=== PATIENT | female | born 1970 | race Caucasian/White ===

== ENCOUNTER 2016-05-26 19:34 | Emergency (ER) | payer MEDICARE, MEDICAID ==
[2016-05-26 20:22] VITALS: BP 134/84
--- NOTE | 2016-05-26 20:39 | UC ---
Respiratory Complaint HPI - HPI Summary HPI Summary: 5d of cough, congestion, malaise, low energy, itchy skin rash. No fever or vomiting. Has history of asthma, using Ventolin inhaler - History of Current Complaint Chief Complaint: UCGeneralIllness Stated Complaint: COUGH,MONROE,RASH Time Seen by Provider: 05/26/16 20:24 Hx Obtained From: Patient Hx Last Menstrual Period: 05/19/16 Onset/Duration: Gradual Onset, Lasting Days - 5 Timing: Constant Severity Initially: Mild Severity Currently: Mild Character: Cough: Productive Aggravating Factors: Exertion Alleviating Factors: Bronchodilator Associated Signs And Symptoms: Positive: Dyspnea, Chills, Wheezing, URI - Risk Factors Pulmonary Embolism Risk Factors: Negative Cardiac Risk Factors: Negative Pseudomonas Risk Factors: Negative Tuberculosis Risk Factors: Negative - Allergies/Home Medications Allergies/Adverse Reactions: Allergies Allergy/AdvReac Type Severity Reaction Status Date / Time Fluticasone Allergy Difficulty Verified 05/26/16 20:22 [From Advair Diskus] Breathing Latex Allergy Difficulty Verified 05/26/16 20:22 Breathing Prednisone Allergy Difficulty Verified 05/26/16 20:22 Breathing Pseudoephedrine Allergy Unknown Verified 05/26/16 20:22 [From Sudafed] Reaction Details Salmeterol Allergy Difficulty Verified 05/26/16 20:22 [From Advair Diskus] Breathing Sulfa Drugs Allergy UNKNOWN Verified 05/26/16 20:22 REACTION Aspartame [From Alavert] AdvReac Dizziness Verified 05/26/16 20:22 Aspirin AdvReac Tachycardia Verified 05/26/16 20:22 Chocolate AdvReac RASH, N/V Verified 05/26/16 20:22 Famotidine [From Pepcid] AdvReac Vomiting Verified 05/26/16 20:22 Levofloxacin [From Levaquin] AdvReac Headache Verified 05/26/16 20:22 Loratadine [From Alavert] AdvReac Dizziness Verified 05/26/16 20:22 Metoclopramide [From Reglan] AdvReac Dizziness Verified 05/26/16 20:22 Polyethylene Glycol AdvReac GI Upset Verified 05/26/16 20:22 [From MiraLax] antihistamines other than AdvReac Tachycardia Uncoded 05/26/16 20:22 Benadryl DAIRY AdvReac FLARES UP Uncoded 05/26/16 20:22 ASTHMA SPICES AdvReac RASH, N/V Uncoded 05/26/16 20:22 TOMATOES AdvReac N/V, RASH Uncoded 05/26/16 20:22 PMH/Surg Hx/FS Hx/Imm Hx Endocrine History Of: Denies: Diabetes, Thyroid Disease Cardiovascular History Of: Reports: Cardiac Disorders - MVP Denies: Hypertension, Pacemaker/ICD, Congestive Heart Failure Respiratory History Of: Reports: COPD, Asthma, Bronchitis GI/ History Of: Reports: Gastroesophageal Reflux Denies: Ulcer, Renal Disease Neurological History Of: Denies: CVA, Seizures - Surgical History Surgical History: Yes Surgery Procedure, Year, and Place: Left kidney benign tumor removed 07/24/13- [place], [place], Benign tumor removed left kidney 1999; abdominal hernia at [place], [place]; 2X of her sinuses and a polyp removed to the top of her nose 2010. - Family History Known Family History: Positive: None, Respiratory Disease, Other - Denies any FMH of bleeding disorders Negative: Cardiac Disease, Hypertension, Diabetes - Social History Occupation: Employed Part-time Lives: With Family Alcohol Use: None Substance Use Type: None Smoking Status (MU): Never Smoked Tobacco When Did the Patient Quit Smoking/Using Tobacco: 1999 - Immunization History Most Recent Influenza Vaccination: Not the Season Most Recent Tetanus Shot: 02/2012 Review of Systems Constitutional: Chills, Fatigue Skin: Rash - widespread, itchy Eyes: Negative ENT: Negative Respiratory: Shortness Of Breath, Cough Cardiovascular: Negative Gastrointestinal: Negative Genitourinary: Negative Motor: Negative Neurovascular: Negative Musculoskeletal: Negative Neurological: Negative Psychological: Negative All Other Systems Reviewed And Are Negative: Yes Physical Exam Triage Information Reviewed: Yes Appearance: Well-Appearing, No Pain Distress, Well-Nourished, Obese Vital Signs: Initial Vital Signs Temp 98.2 F 05/26/16 20:17 Pulse 86 05/26/16 20:17 Resp 16 05/26/16 20:17 BP 134/84 05/26/16 20:17 Pulse Ox 98 05/26/16 20:17 Vital Signs Reviewed: Yes Eye Exam: Normal Eyes: Positive: Conjunctiva Clear ENT: Positive: Normal ENT inspection, Pharynx normal, TMs normal. Negative: Nasal congestion Neck exam: Normal Neck: Positive: Supple Respiratory Exam: Normal Respiratory: Positive: Lungs clear, Normal breath sounds, No respiratory distress, No accessory muscle use Cardiovascular Exam: Normal Musculoskeletal Exam: Normal Neurological Exam: Normal Psychological Exam: Normal Skin: Positive: rashes - widespread excoriations/scabs. No clear rash otherwise UC Diagnostic Evaluation - Laboratory O2 Sat by Pulse Oximetry: 98 Respiratory Course/Dx - Differential Dx/Diagnosis Differential Diagnosis/HQI/PQRI: Bronchitis, Lower Resp Infection Provider Diagnoses: URI; allergic dermatitis Discharge - Discharge Plan Condition: Stable Disposition: HOME Prescriptions: Prednisone [Deltasone] 20 mg PO DAILY #8 tab Patient Education Materials: Upper Respiratory Infection (ED) Forms: *Work Release Referrals: Juan Baxter MD [Primary Care Provider] -
== END 2016-05-26 20:43 | disposition home or self-care (01) ==
LOC: UCCORT 19:34
DX: J06.9 Acute upper respiratory infection, unspecified (principal); L23.9 Allergic contact dermatitis, unspecified cause; Z88.6 Allergy status to analgesic agent; Z88.8 Allergy status to other drugs, medicaments and biological substances
CPT/HCPCS: 99212; G0463

== ENCOUNTER 2016-05-28 19:10 | Emergency (ER) | payer MEDICARE, MEDICAID ==
[2016-05-28 19:50] VITALS: BP 124/107
--- NOTE | 2016-05-28 21:58 | UC ---
Ruthy Liu SooYoung, scribed for DiptiShira Kemp, DO on 05/28/16 at 1955 . Skin Complaint HPI - HPI Summary HPI Summary: A 46 y/o F presents to [facility] with c/o ongoing diffuse skin rash onset past month. The rash/bites are pruritic, erythamatous, and present on all four extremities. Pt states the sx feel similar to past episodes before, which in the past had been scabies. At work, pt has been in contact with people with existing skin issues from bed bugs, mites. Pt was seen two days ago at [facility]. Pt denies exposure to any new plants, pets, foods, medicines, soaps, lotions, detergents, fragrances. Secondary complaint: mild dysuria, frequency, nausea. Denies v/d. Known UTI mid-April 2016. Pt is scheduled for a colonoscopy at the end of the month. - History of Current Complaint Chief Complaint: UCSkin Stated Complaint: RASH Hx Obtained From: Patient, Medical Records Hx Last Menstrual Period: 05/21/16 Onset/Duration: Lasting Weeks - about a month, Still Present Timing: Constant Onset Severity: Moderate Current Severity: Moderate Pain Intensity: 0 - denies pain Pain Scale Used: 0-10 Numeric Location: Diffuse Character: Pruritus, Redness Aggravating: Nothing Alleviating: Nothing Associated Signs & Symptoms: Positive: Rash. Negative: Vomiting, Diaphoresis, Difficulty Breathing, Fever, Cough, Wheezing, Chest Pain, Hoarseness, Throat Tightening, Abdominal Pain, Lightheadedness - Allergy/Home Medications Allergies/Adverse Reactions: Allergies Allergy/AdvReac Type Severity Reaction Status Date / Time Fluticasone Allergy Difficulty Verified 05/28/16 19:39 [From Advair Diskus] Breathing Latex Allergy Difficulty Verified 05/28/16 19:39 Breathing Prednisone Allergy Difficulty Verified 05/28/16 19:39 Breathing Pseudoephedrine Allergy Unknown Verified 05/28/16 19:39 [From Sudafed] Reaction Details Salmeterol Allergy Difficulty Verified 05/28/16 19:39 [From Advair Diskus] Breathing Sulfa Drugs Allergy UNKNOWN Verified 05/28/16 19:39 REACTION Aspartame [From Alavert] AdvReac Dizziness Verified 05/28/16 19:39 Aspirin AdvReac Tachycardia Verified 05/28/16 19:39 Chocolate AdvReac RASH, N/V Verified 05/28/16 19:39 Famotidine [From Pepcid] AdvReac Vomiting Verified 05/28/16 19:39 Levofloxacin [From Levaquin] AdvReac Headache Verified 05/28/16 19:39 Loratadine [From Alavert] AdvReac Dizziness Verified 05/28/16 19:39 Metoclopramide [From Reglan] AdvReac Dizziness Verified 05/28/16 19:39 Polyethylene Glycol AdvReac GI Upset Verified 05/28/16 19:39 [From MiraLax] antihistamines other than AdvReac Tachycardia Uncoded 05/28/16 19:39 Benadryl DAIRY AdvReac FLARES UP Uncoded 05/28/16 19:39 ASTHMA SPICES AdvReac RASH, N/V Uncoded 05/28/16 19:39 TOMATOES AdvReac N/V, RASH Uncoded 05/28/16 19:39 Review of Systems Constitutional: Negative Skin: Rash Eyes: Negative ENT: Negative Respiratory: Negative Cardiovascular: Negative Gastrointestinal: Other - pos: nausea, Genitourinary: Dysuria, Frequency Motor: Negative Neurovascular: Negative Musculoskeletal: Negative Neurological: Negative Psychological: Negative All Other Systems Reviewed And Are Negative: Yes PMH/Surg Hx/FS Hx/Imm Hx Previously Healthy: No Endocrine History Of: Denies: Diabetes, Thyroid Disease Cardiovascular History Of: Reports: Cardiac Disorders - MVP Denies: Hypertension, Pacemaker/ICD, Congestive Heart Failure Respiratory History Of: Reports: COPD, Asthma, Bronchitis GI/ History Of: Reports: Gastroesophageal Reflux Denies: Ulcer, Renal Disease Neurological History Of: Denies: CVA, Seizures - Surgical History Surgical History: Yes Surgery Procedure, Year, and Place: Left kidney benign tumor removed 07/24/13- [place], Benign tumor removed left kidney 1999; abdominal hernia at [place], [place]; 2X of her sinuses and a polyp removed to the top of her nose 2010. - Family History Known Family History: Positive: None, Respiratory Disease, Other - Denies any FMH of bleeding disorders Negative: Cardiac Disease, Hypertension, Diabetes - Social History Occupation: Employed Full-time Lives: With Family Alcohol Use: None Substance Use Type: None Smoking Status (MU): Never Smoked Tobacco When Did the Patient Quit Smoking/Using Tobacco: 1999 - Immunization History Most Recent Influenza Vaccination: Not the Season Most Recent Tetanus Shot: 02/2012 Physical Exam Triage Information Reviewed: Yes Appearance: Well-Appearing, No Pain Distress, Obese Vital Signs: Initial Vital Signs Temp 97 F 05/28/16 19:43 Pulse 82 05/28/16 19:43 Resp 18 05/28/16 19:43 BP 124/107 05/28/16 19:43 Pulse Ox 99 05/28/16 19:43 Vital Signs Reviewed: Yes Eyes: Positive: Conjunctiva Clear. Negative: Discharge ENT: Positive: Hearing grossly normal. Negative: Muffled/hoarse voice Neck exam: Normal Neck: Positive: Supple Respiratory: Positive: Chest non-tender, Lungs clear, Normal breath sounds, No respiratory distress Cardiovascular: Positive: RRR, No Murmur Abdomen Description: Positive: Nontender. Negative: CVA Tenderness (R), CVA Tenderness (L), Distended, Guarding Bowel Sounds: Positive: Present Musculoskeletal Exam: Normal Neurological: Positive: Alert, Muscle Tone Normal Psychological: Positive: Age Appropriate Behavior Skin Exam: Other - dry, warm, nml color Skin: Positive: rashes - NUMEROUS, PRURITIC, EXCORIATED LESIONS WITH RAVEN TRACTS ON ARMS, LEGS, HANDS AND TRUNK. Course/Dx - Differential Diagnoses - Skin Complaint Differential Diagnoses: Contact Dermatitis, Scabies, Tinea, Viral Exanthem, Other - dysuria, uti - Diagnoses Provider Diagnoses: scabie, uti Discharge - Discharge Plan Condition: Stable Disposition: HOME Prescriptions: Permethrin [Elimite] 5 % TOPICAL ONCE #1 bottle Patient Education Materials: Scabies (ED), Dysuria (ED) Referrals: Juan Baxter MD [Primary Care Provider] - 2 Weeks () Additional Instructions: RIGHT NOW, YOUR URINE DIPSTICK DOES NOT SHOW STRONG EVIDENCE FOR UTI. THEREFORE WE WILL HOLD OFF ON TREATMENT UNTIL CULTURE RESULTS COME BACK. THEY SHOULD BE AVAILABLE IN ABOUT 2 DAYS. IF SYMPTOMS WORSEN OR IF YOU DEVELOP FEVER , BACK PAIN VOMITING OR BLOOD IN YOUR URINE, YOU SHOULD RETURN FOR RE- EVALUATION. The documentation as recorded by the Ruthy stewart SooYoung accurately reflects the service I personally performed and the decisions made by , Shira Resendez DO.
== END 2016-05-28 20:33 | disposition home or self-care (01) ==
LOC: UCEAST 19:10
DX: B86 Scabies (principal); N39.0 Urinary tract infection, site not specified; Z87.440 Personal history of urinary (tract) infections; Z88.6 Allergy status to analgesic agent; Z88.2 Allergy status to sulfonamides; Z88.8 Allergy status to other drugs, medicaments and biological substances; Z87.891 Personal history of nicotine dependence
CPT/HCPCS: 81002; 87077; 87086; 87186; 99212; G0463

== ENCOUNTER 2016-06-08 18:49 | Emergency (ER) | payer MEDICARE, MEDICAID ==
[2016-06-08 19:30] VITALS: BP 110/71
--- NOTE | 2016-06-08 19:39 | UC ---
Throat Pain/Nasal Kyaw HPI - HPI Summary HPI Summary: complaint of right ear pain since yesterday stabbing pain in her ear sore throat since yesterday nasal congestion and cough, post nasal drip lymph nodes feel sore has had chills today took some tylenol this morning with some relief went to see occupational health who told her to be checked - History of Current Complaint Chief Complaint: UCGeneralIllness Stated Complaint: SORE THROAT AND EAR ACHE Time Seen by Provider: 06/08/16 19:32 Hx Obtained From: Patient Hx Last Menstrual Period: 05/19/16 - Allergies/Home Medications Allergies/Adverse Reactions: Allergies Allergy/AdvReac Type Severity Reaction Status Date / Time Fluticasone Allergy Difficulty Verified 06/08/16 19:30 [From Advair Diskus] Breathing Latex Allergy Difficulty Verified 06/08/16 19:30 Breathing Prednisone Allergy Difficulty Verified 06/08/16 19:30 Breathing Pseudoephedrine Allergy Unknown Verified 06/08/16 19:30 [From Sudafed] Reaction Details Salmeterol Allergy Difficulty Verified 06/08/16 19:30 [From Advair Diskus] Breathing Sulfa Drugs Allergy UNKNOWN Verified 06/08/16 19:30 REACTION Aspartame [From Alavert] AdvReac Dizziness Verified 06/08/16 19:30 Aspirin AdvReac Tachycardia Verified 06/08/16 19:30 Chocolate AdvReac RASH, N/V Verified 06/08/16 19:30 Famotidine [From Pepcid] AdvReac Vomiting Verified 06/08/16 19:30 Levofloxacin [From Levaquin] AdvReac Headache Verified 06/08/16 19:30 Loratadine [From Alavert] AdvReac Dizziness Verified 06/08/16 19:30 Metoclopramide [From Reglan] AdvReac Dizziness Verified 06/08/16 19:30 Polyethylene Glycol AdvReac GI Upset Verified 06/08/16 19:30 [From MiraLax] antihistamines other than AdvReac Tachycardia Uncoded 06/08/16 19:30 Benadryl DAIRY AdvReac FLARES UP Uncoded 06/08/16 19:30 ASTHMA SPICES AdvReac RASH, N/V Uncoded 06/08/16 19:30 TOMATOES AdvReac N/V, RASH Uncoded 06/08/16 19:30 Home Medications: Home Medications Ciclesonide (Nasal) [Zetonna] 2 inh NA BID 06/08/16 [History Confirmed 06/08/16] PMH/Surg Hx/FS Hx/Imm Hx Previously Healthy: Yes Endocrine History Of: Denies: Diabetes, Thyroid Disease Cardiovascular History Of: Reports: Cardiac Disorders - MVP Denies: Hypertension, Pacemaker/ICD, Congestive Heart Failure Respiratory History Of: Reports: COPD, Asthma, Bronchitis GI/ History Of: Reports: Gastroesophageal Reflux Denies: Ulcer, Renal Disease Neurological History Of: Denies: CVA, Seizures - Surgical History Surgical History: Yes Surgery Procedure, Year, and Place: Left kidney benign tumor removed 07/24/13- [place], [place], Benign tumor removed left kidney 1999; abdominal hernia at [place], [place]; 2X of her sinuses and a polyp removed to the top of her nose 2010. - Family History Known Family History: Positive: None, Respiratory Disease, Other - Denies any FMH of bleeding disorders Negative: Cardiac Disease, Hypertension, Diabetes - Social History Alcohol Use: None Substance Use Type: None Smoking Status (MU): Never Smoked Tobacco When Did the Patient Quit Smoking/Using Tobacco: 1999 - Immunization History Most Recent Influenza Vaccination: none Most Recent Tetanus Shot: 02/2012 Review of Systems Constitutional: Chills Skin: Negative Eyes: Negative ENT: Sore Throat, Ear Ache, Nasal Discharge Respiratory: Cough Cardiovascular: Negative Gastrointestinal: Negative Genitourinary: Negative Motor: Negative Neurovascular: Negative Musculoskeletal: Negative Neurological: Negative Psychological: Negative All Other Systems Reviewed And Are Negative: Yes Physical Exam Triage Information Reviewed: Yes Appearance: Well-Nourished, Obese Vital Signs: Initial Vital Signs Temp 98.5 F 06/08/16 19:23 Pulse 85 06/08/16 19:23 Resp 17 06/08/16 19:23 BP 110/71 06/08/16 19:23 Pulse Ox 98 06/08/16 19:23 Vital Signs Reviewed: Yes Eyes: Positive: Conjunctiva Clear ENT: Positive: Pharyngeal erythema, Nasal congestion, Other: - right TM- bulging and clear Left TM clear and flat. Negative: Tonsillar swelling Neck: Positive: Enlarged Nodes @ - right sided cervical lymphadenopathy Respiratory: Positive: Lungs clear, Normal breath sounds, No respiratory distress Cardiovascular: Positive: RRR, No Murmur, Pulses Normal Abdomen Description: Positive: Nontender, Soft Bowel Sounds: Positive: Present Musculoskeletal: Positive: No Edema Neurological: Positive: Alert Psychological Exam: Normal Skin Exam: Normal Throat Pain/Nasal Course/Dx - Differential Dx/Diagnosis Differential Diagnosis/HQI/PQRI: Otitis Media, Pharyngitis, Tonsillitis Provider Diagnoses: eustachion tube dysfunction- right. pharyngitis Discharge - Discharge Plan Condition: Stable Disposition: HOME Patient Education Materials: Pharyngitis (ED) Referrals: Juan Baxter MD [Primary Care Provider] - Additional Instructions: Increase fluids and rest Take acetaminophen for fever or pain Please review your discharge instructions. If your symptoms do not improve please call your primary care provider or return to urgent care.
[2016-06-08] MEDS ORDERED: Acetaminophen TAB* 325 MG PO ONE (20:06)
== END 2016-06-08 20:16 | disposition home or self-care (01) ==
LOC: UCCORT 18:49
DX: H69.91 Unspecified Eustachian tube disorder, right ear (principal); J02.9 Acute pharyngitis, unspecified; Z88.6 Allergy status to analgesic agent; Z88.2 Allergy status to sulfonamides; Z88.8 Allergy status to other drugs, medicaments and biological substances
CPT/HCPCS: 87651; 99212; A9270-GY; G0463

== ENCOUNTER 2016-07-09 18:35 | Emergency (ER) | payer MEDICARE, MEDICAID ==
[2016-07-09 19:42] VITALS: BP 128/63
--- NOTE | 2016-07-09 19:52 | UC ---
Respiratory Complaint HPI - HPI Summary HPI Summary: pt c/o of non productive cough nasal congetiosn and right ear ache X 3-4 days. - History of Current Complaint Chief Complaint: UCGeneralIllness Stated Complaint: CONGESTION/COUGH Time Seen by Provider: 07/09/16 19:41 Hx Obtained From: Patient Hx Last Menstrual Period: denies risk of ?: No Onset/Duration: Gradual Onset, Lasting Days Timing: Constant Severity Initially: Mild Severity Currently: Mild Character: Cough: Nonproductive Aggravating Factors: Deep Breaths, Recumbent Position Alleviating Factors: Nothing Associated Signs And Symptoms: Positive: Chills, URI, Nasal Congestion - Risk Factors Pseudomonas Risk Factors: Chronic Lung Disease - Allergies/Home Medications Allergies/Adverse Reactions: Allergies Allergy/AdvReac Type Severity Reaction Status Date / Time Fluticasone Allergy Difficulty Verified 07/09/16 19:42 [From Advair Diskus] Breathing Latex Allergy Difficulty Verified 07/09/16 19:42 Breathing Prednisone Allergy Difficulty Verified 07/09/16 19:42 Breathing Pseudoephedrine Allergy Unknown Verified 07/09/16 19:42 [From Sudafed] Reaction Details Salmeterol Allergy Difficulty Verified 07/09/16 19:42 [From Advair Diskus] Breathing Sulfa Drugs Allergy UNKNOWN Verified 07/09/16 19:42 REACTION Aspartame [From Alavert] AdvReac Dizziness Verified 07/09/16 19:42 Aspirin AdvReac Tachycardia Verified 07/09/16 19:42 Chocolate AdvReac RASH, N/V Verified 07/09/16 19:42 Famotidine [From Pepcid] AdvReac Vomiting Verified 07/09/16 19:42 Levofloxacin [From Levaquin] AdvReac Headache Verified 07/09/16 19:42 Loratadine [From Alavert] AdvReac Dizziness Verified 07/09/16 19:42 Metoclopramide [From Reglan] AdvReac Dizziness Verified 07/09/16 19:42 Polyethylene Glycol AdvReac GI Upset Verified 07/09/16 19:42 [From MiraLax] antihistamines other than AdvReac Tachycardia Uncoded 07/09/16 19:42 Benadryl DAIRY AdvReac FLARES UP Uncoded 07/09/16 19:42 ASTHMA SPICES AdvReac RASH, N/V Uncoded 07/09/16 19:42 TOMATOES AdvReac N/V, RASH Uncoded 07/09/16 19:42 PMH/Surg Hx/FS Hx/Imm Hx Previously Healthy: No - see pmh Endocrine History Of: Denies: Diabetes, Thyroid Disease Cardiovascular History Of: Reports: Cardiac Disorders - MVP Denies: Hypertension, Pacemaker/ICD, Congestive Heart Failure Respiratory History Of: Reports: COPD, Asthma, Bronchitis GI/ History Of: Reports: Gastroesophageal Reflux Denies: Ulcer, Renal Disease Neurological History Of: Denies: CVA, Seizures - Surgical History Surgical History: Yes Surgery Procedure, Year, and Place: Left kidney benign tumor removed 07/24/13- [place], [place], Benign tumor removed left kidney 1999; abdominal hernia at [place], [place]; 2X of her sinuses and a polyp removed to the top of her nose 2010. - Family History Known Family History: Positive: Respiratory Disease, Other - Denies any FMH of bleeding disorders Negative: Cardiac Disease, Hypertension, Diabetes - Social History Alcohol Use: None Substance Use Type: None Smoking Status (MU): Never Smoked Tobacco When Did the Patient Quit Smoking/Using Tobacco: 1999 - Immunization History Most Recent Influenza Vaccination: none Most Recent Tetanus Shot: 02/2012 Review of Systems Constitutional: Chills, Fatigue Skin: Negative Eyes: Negative ENT: Ear Ache - right ear Respiratory: Cough Cardiovascular: Negative Gastrointestinal: Negative Genitourinary: Negative Motor: Negative Neurovascular: Negative Musculoskeletal: Negative Neurological: Negative Psychological: Negative All Other Systems Reviewed And Are Negative: Yes Physical Exam Triage Information Reviewed: Yes Appearance: Well-Appearing, Other: - unkempt Vital Signs: Initial Vital Signs Temp 98.2 F 07/09/16 19:33 Pulse 94 07/09/16 19:33 Resp 18 07/09/16 19:33 BP 128/63 07/09/16 19:33 Pulse Ox 98 07/09/16 19:33 Vital Signs Reviewed: Yes Eye Exam: Normal ENT Exam: Normal Respiratory Exam: Normal Cardiovascular Exam: Normal Musculoskeletal Exam: Normal Neurological Exam: Normal Psychological Exam: Normal Skin Exam: Other - mulitple scratches on bilateral hands, UC Diagnostic Evaluation - Laboratory O2 Sat by Pulse Oximetry: 98 Respiratory Course/Dx - Differential Dx/Diagnosis Differential Diagnosis/HQI/PQRI: Bronchitis, Influenza Provider Diagnoses: post viral cough Discharge - Discharge Plan Condition: Stable Disposition: HOME Prescriptions: predniSONE TAB* [Deltasone TAB*] 20 mg PO DAILY #4 tab Patient Education Materials: Acute Cough (ED) Referrals: Juan Baxter MD [Primary Care Provider] -
== END 2016-07-09 19:53 | disposition home or self-care (01) ==
LOC: UCCORT 18:35
DX: R05 Cough (principal); Z88.6 Allergy status to analgesic agent; Z88.2 Allergy status to sulfonamides; Z88.8 Allergy status to other drugs, medicaments and biological substances; I34.1 Nonrheumatic mitral (valve) prolapse
CPT/HCPCS: 99212; G0463

== ENCOUNTER 2016-08-10 21:38 | Emergency (ER) | payer MEDICARE, MEDICAID ==
[2016-08-10 22:35] VITALS: BP 143/69
== END 2016-08-10 23:53 | disposition left against medical advice (07) ==
LOC: UCCORT 21:38
DX: R04.0 Epistaxis (principal); Z53.21 Procedure and treatment not carried out due to patient leaving prior to being seen by health care provider

== ENCOUNTER 2016-08-14 19:40 | Emergency (ER) | payer MEDICARE, MEDICAID | END 2016-08-14 21:17 | disposition left against medical advice (07) | LOC: UCCORT 19:40 | DX: J00 Acute nasopharyngitis [common cold] (principal) ==

== ENCOUNTER 2016-08-19 15:35 | Emergency (ER) | payer MEDICARE, MEDICAID ==
--- NOTE | 2016-08-19 17:08 | UC ---
Respiratory Complaint HPI - HPI Summary HPI Summary: 2.5 weeks of uri sx---seems to be not improving---seen quality assurance lead---who began here on 14 days of Prednisone... She was not feeling much better so she saw here allergist/immunologist physician how felt she may need to be admitted to the hospital. Came here to get checked out and figure out what is going on--she did have an episode of sweating and could chills earlier todays -has not had a CXR or checked for influenza - History of Current Complaint Chief Complaint: UCRespiratory Stated Complaint: fever,chills,sinuses Time Seen by Provider: 08/19/16 16:47 Hx Obtained From: Patient Hx Last Menstrual Period: 4 months ago ?: No Onset/Duration: Gradual Onset, Lasting Weeks - 2.5 weeks, Still Present Timing: Constant Severity Initially: Moderate Severity Currently: Moderate Pain Intensity: 4 Pain Scale Used: 0-10 Numeric Character: Cough: Productive Aggravating Factors: Allergens, Exertion Alleviating Factors: Bronchodilator Associated Signs And Symptoms: Positive: Dyspnea, URI, Nasal Congestion, Sinus Discomfort - Allergies/Home Medications Allergies/Adverse Reactions: Allergies Allergy/AdvReac Type Severity Reaction Status Date / Time Fluticasone Allergy Difficulty Verified 08/19/16 16:52 [From Advair Diskus] Breathing Latex Allergy Difficulty Verified 08/19/16 16:52 Breathing Prednisone Allergy Difficulty Verified 08/19/16 16:52 Breathing Pseudoephedrine Allergy Unknown Verified 08/19/16 16:52 [From Sudafed] Reaction Details Salmeterol Allergy Difficulty Verified 08/19/16 16:52 [From Advair Diskus] Breathing Sulfa Drugs Allergy UNKNOWN Verified 08/19/16 16:52 REACTION Aspartame [From Alavert] AdvReac Dizziness Verified 08/19/16 16:52 Aspirin AdvReac Tachycardia Verified 08/19/16 16:52 Chocolate AdvReac RASH, N/V Verified 08/19/16 16:52 Famotidine [From Pepcid] AdvReac Vomiting Verified 08/19/16 16:52 Levofloxacin [From Levaquin] AdvReac Headache Verified 08/19/16 16:52 Loratadine [From Alavert] AdvReac Dizziness Verified 08/19/16 16:52 Metoclopramide [From Reglan] AdvReac Dizziness Verified 08/19/16 16:52 Polyethylene Glycol AdvReac GI Upset Verified 08/19/16 16:52 [From MiraLax] antihistamines other than AdvReac Tachycardia Uncoded 08/19/16 16:52 Benadryl DAIRY AdvReac FLARES UP Uncoded 08/19/16 16:52 ASTHMA SPICES AdvReac RASH, N/V Uncoded 08/19/16 16:52 TOMATOES AdvReac N/V, RASH Uncoded 08/19/16 16:52 Home Medications: Home Medications ceFUROXime TAB(*) [Ceftin TAB 250 MG(*)] 500 mg PO BID 08/19/16 [History Confirmed 08/19/16] PMH/Surg Hx/FS Hx/Imm Hx Previously Healthy: No Endocrine History Of: Denies: Diabetes, Thyroid Disease Cardiovascular History Of: Reports: Cardiac Disorders - MVP Denies: Hypertension, Pacemaker/ICD, Congestive Heart Failure Respiratory History Of: Reports: COPD, Asthma, Bronchitis GI/ History Of: Reports: Gastroesophageal Reflux Denies: Ulcer, Renal Disease Neurological History Of: Denies: CVA, Seizures - Surgical History Surgical History: Yes Surgery Procedure, Year, and Place: Left kidney benign tumor removed 07/24/13- [place], [place], Benign tumor removed left kidney 1999; abdominal hernia at [place], [place]; 2X of her sinuses and a polyp removed to the top of her nose 2010. - Family History Known Family History: Positive: None, Respiratory Disease, Other - Denies any FMH of bleeding disorders Negative: Cardiac Disease, Hypertension, Diabetes - Social History Occupation: Disabled Lives: With Family Alcohol Use: None Substance Use Type: None Smoking Status (MU): Never Smoked Tobacco When Did the Patient Quit Smoking/Using Tobacco: 1999 - Immunization History Most Recent Influenza Vaccination: none Most Recent Tetanus Shot: 02/2012 Review of Systems Constitutional: Fever, Chills Skin: Negative Eyes: Negative ENT: Negative Respiratory: Shortness Of Breath, Cough Cardiovascular: Negative Gastrointestinal: Negative Genitourinary: Negative Motor: Negative Neurovascular: Negative Musculoskeletal: Negative Neurological: Negative Psychological: Negative All Other Systems Reviewed And Are Negative: Yes Physical Exam Triage Information Reviewed: Yes Appearance: Ill-Appearing - mild, Pain Distress - mild, Obese Vital Signs: Initial Vital Signs Temp 97.1 F 08/19/16 16:44 Pulse 91 08/19/16 16:44 Resp 14 08/19/16 16:44 BP 133/59 08/19/16 16:44 Pulse Ox 96 08/19/16 16:44 Vital Signs Reviewed: Yes Eye Exam: Normal Eyes: Positive: Conjunctiva Clear ENT Exam: Normal ENT: Positive: Normal ENT inspection, TMs normal. Negative: Nasal congestion, Nasal drainage, Tonsillar swelling, Tonsillar exudate, Trismus, Muffled/hoarse voice Neck exam: Normal Neck: Positive: Supple, Nontender, No Lymphadenopathy Respiratory Exam: Normal Respiratory: Positive: Chest non-tender, Lungs clear, Normal breath sounds, No respiratory distress, No accessory muscle use Cardiovascular Exam: Normal Cardiovascular: Positive: RRR, No Murmur, Pulses Normal, Brisk Capillary Refill Musculoskeletal Exam: Normal Musculoskeletal: Positive: Strength Intact, ROM Intact, No Edema Neurological Exam: Normal Neurological: Positive: Alert, Muscle Tone Normal Psychological Exam: Normal Skin Exam: Normal UC Diagnostic Evaluation - Laboratory Result Diagrams: 08/19/16 17:45 O2 Sat by Pulse Oximetry: 96 Diagnostic Studies Comment: Influenza A/B (-), Urine preg negative, ua wnl Re-Evaluation - Re-Evaluation First Eval Change: Improved - Pt understands plan of care. D/c in good condition Respiratory Course/Dx - Course Course Of Treatment: continue medications as ordered, will check a cbc for evidence of bacterial infection, follow with [facility] as planned, to ed for any acute symptoms - Differential Dx/Diagnosis Differential Diagnosis/HQI/PQRI: Asthma, Bronchitis, Exacerbation Of COPD, Influenza, Lower Resp Infection, Sinusitis Provider Diagnoses: Acute exacerbation of Asthma, Bronchitis Discharge - Discharge Plan Condition: Stable Disposition: HOME Patient Education Materials: Asthma (ED), Bronchospasm (ED) Referrals: Juan Baxter MD [Primary Care Provider] - 3 Days
[2016-08-19 17:09] VITALS: BP 133/59
--- NOTE | 2016-08-19 17:40 | RAD ---
HISTORY: Shortness of breath COMPARISONS: January 06, 2016 VIEWS: 2: Frontal dual-energy and lateral views of the chest. FINDINGS: CARDIOMEDIASTINAL SILHOUETTE: The cardiomediastinal silhouette is normal. ZUNILDA: The zunilda are normal. PLEURA: The costophrenic angles are sharp. No pleural abnormalities are noted. LUNG PARENCHYMA: The lungs are clear. ABDOMEN: The upper abdomen is clear. There is no subphrenic gas. BONES AND SOFT TISSUES: No bone or soft tissue abnormalities are noted. OTHER: None. IMPRESSION: NO ACTIVE CARDIOPULMONARY DISEASE.
[2016-08-19 19:54] LABS: Hematocrit 41 % (35-47); Hemoglobin 13.6 g/dl (12.0-16.0); Mean Corpuscular HGB Conc 33 g/dl (31-36); Mean Corpuscular Hemoglobin 29 pg (27-31); Mean Corpuscular Volume 87 fL (80-97); Mean Platelet Volume 9 um3 (7.4-10.4); Red Blood Count 4.76 10^6/ul (4.0-5.4); Red Cell Distribution Width 14 % (10.5-15); White Blood Count 14.3 10^3/ul (3.5-10.8)
== END 2016-08-19 17:55 | disposition home or self-care (01) ==
LOC: UCCORT 15:35
DX: J44.9 Chronic obstructive pulmonary disease, unspecified (principal); J45.901 Unspecified asthma with (acute) exacerbation; Z32.02 Encounter for pregnancy test, result negative; E66.9 Obesity, unspecified; I34.1 Nonrheumatic mitral (valve) prolapse; Z88.6 Allergy status to analgesic agent; Z88.1 Allergy status to other antibiotic agents; Z88.2 Allergy status to sulfonamides; Z88.8 Allergy status to other drugs, medicaments and biological substances
CPT/HCPCS: 36415; 71020; 81003; 84702; 85025; 87502; 99212; G0463

== ENCOUNTER 2016-09-13 18:35 | Emergency (ER) | payer MEDICARE, MEDICAID ==
[2016-09-13 20:51] VITALS: BP 157/107
--- NOTE | 2016-09-13 21:30 | UC ---
Throat Pain/Nasal Kyaw HPI - HPI Summary HPI Summary: Sore throat for 2 days, right ear pain; Pt exposed to strep in client. Pt finished prednisone 2 weeks ago. Pt took clindamycin bid today Elevated BP today. SHe follows closely with the asthma and allergy Drs and she is on augmentin bid chronically she reports. the passenger barge master recently changed it to keflex and clindamycin and she completed a course of prednisone. c/o drainage from right ear into her throat that is irritating her. c/o sinus pain rt forehead and cheek. + PND. stopped the qvar on her own. also see's puldarrell Carrillo from [place] for bi-pap. no fevers. - History of Current Complaint Chief Complaint: UCRespiratory Stated Complaint: SORE THROAT Time Seen by Provider: 09/13/16 21:28 Hx Last Menstrual Period: 5 months - Allergies/Home Medications Allergies/Adverse Reactions: Allergies Allergy/AdvReac Type Severity Reaction Status Date / Time Fluticasone Allergy Difficulty Verified 09/13/16 20:34 [From Advair Diskus] Breathing Latex Allergy Difficulty Verified 09/13/16 20:34 Breathing Prednisone Allergy Difficulty Verified 09/13/16 20:34 Breathing Pseudoephedrine Allergy Unknown Verified 09/13/16 20:34 [From Sudafed] Reaction Details Salmeterol Allergy Difficulty Verified 09/13/16 20:34 [From Advair Diskus] Breathing Sulfa Drugs Allergy UNKNOWN Verified 09/13/16 20:34 REACTION Aspartame [From Alavert] AdvReac Dizziness Verified 09/13/16 20:34 Aspirin AdvReac Tachycardia Verified 09/13/16 20:34 Chocolate AdvReac RASH, N/V Verified 09/13/16 20:34 Famotidine [From Pepcid] AdvReac Vomiting Verified 09/13/16 20:34 Levofloxacin [From Levaquin] AdvReac Headache Verified 09/13/16 20:34 Loratadine [From Alavert] AdvReac Dizziness Verified 09/13/16 20:34 Metoclopramide [From Reglan] AdvReac Dizziness Verified 09/13/16 20:34 Polyethylene Glycol AdvReac GI Upset Verified 09/13/16 20:34 [From MiraLax] antihistamines other than AdvReac Tachycardia Uncoded 09/13/16 20:34 Benadryl DAIRY AdvReac FLARES UP Uncoded 09/13/16 20:34 ASTHMA SPICES AdvReac RASH, N/V Uncoded 09/13/16 20:34 TOMATOES AdvReac N/V, RASH Uncoded 09/13/16 20:34 Home Medications: Home Medications Clindamycin CAP* [Cleocin 150 MG CAP*] 300 mg PO Q8H 09/13/16 [History Confirmed 09/13/16] Esomeprazole Magnesium [Nexium] 40 mg PO DAILY 09/13/16 [History Confirmed 09/13] PMH/Surg Hx/FS Hx/Imm Hx Previously Healthy: Yes - complicated ENT hx. Endocrine History Of: Denies: Diabetes, Thyroid Disease Cardiovascular History Of: Reports: Cardiac Disorders - MVP Denies: Hypertension, Pacemaker/ICD, Congestive Heart Failure Respiratory History Of: Reports: COPD, Asthma, Bronchitis GI/ History Of: Reports: Gastroesophageal Reflux Denies: Ulcer, Renal Disease Neurological History Of: Denies: CVA, Seizures - Surgical History Surgical History: Yes Surgery Procedure, Year, and Place: Left kidney benign tumor removed 07/24/13- [place], [place], Benign tumor removed left kidney 1999; abdominal hernia at [place], [place]; 2X of her sinuses and a polyp removed to the top of her nose 2010. - Family History Known Family History: Positive: None, Respiratory Disease, Other - Denies any FMH of bleeding disorders Negative: Cardiac Disease, Hypertension, Diabetes - Social History Alcohol Use: None Substance Use Type: None Smoking Status (MU): Never Smoked Tobacco When Did the Patient Quit Smoking/Using Tobacco: 1999 - Immunization History Most Recent Influenza Vaccination: none Most Recent Tetanus Shot: 02/2012 Review of Systems Constitutional: Fatigue Skin: Negative Eyes: Negative ENT: Sore Throat, Ear Ache, Nasal Discharge, Other - +PND Respiratory: Negative Cardiovascular: Negative Gastrointestinal: Negative Genitourinary: Negative Motor: Negative Neurovascular: Negative Musculoskeletal: Negative Neurological: Negative Psychological: Negative All Other Systems Reviewed And Are Negative: Yes Physical Exam Triage Information Reviewed: Yes Appearance: Well-Appearing, No Pain Distress - she is quite anxious. Vital Signs: Initial Vital Signs Temp 98.2 F 09/13/16 20:21 Pulse 96 09/13/16 20:21 Resp 18 09/13/16 20:21 BP 157/107 09/13/16 20:21 Pulse Ox 97 09/13/16 20:21 Vital Signs Reviewed: Yes Eye Exam: Normal ENT: Positive: Pharyngeal erythema - + PND, no exudate. + Rt frontal and Rt maxillary tenderness, none on left., Nasal congestion, TMs normal. Negative: TM bulging, TM dull, TM red, Tonsillar swelling, Tonsillar exudate, Muffled/ hoarse voice Dental Exam: Normal Neck exam: Normal Neck: Positive: Supple, Nontender, No Lymphadenopathy Respiratory Exam: Normal Respiratory: Positive: Lungs clear, Normal breath sounds, No respiratory distress, No accessory muscle use. Negative: Crackles, Rhonchi, Stridor, Wheezing Cardiovascular Exam: Normal Cardiovascular: Positive: RRR, No Murmur, Pulses Normal, Brisk Capillary Refill Abdomen Description: Positive: Nontender, Soft Bowel Sounds: Positive: Present Musculoskeletal Exam: Normal Neurological Exam: Normal Psychological Exam: Normal Skin Exam: Normal Throat Pain/Nasal Course/Dx - Course Course Of Treatment: BP rpt by me 144/92 LT LG cuff. rapid strep is neg which helps reassure her. - Differential Dx/Diagnosis Differential Diagnosis/HQI/PQRI: Pharyngitis, Sinusitis, URI Provider Diagnoses: URI, pharyngitis Discharge - Discharge Plan Condition: Stable Disposition: HOME Patient Education Materials: Sinusitis (ED), Upper Respiratory Infection (ED) Referrals: Juan Baxter MD [Primary Care Provider] - Additional Instructions: Restart the saline rinses and the steroid nasal spray. The rapid strep test was negative. Complete the clindamycin and keflex as directed by your asthma/ allergy doctors and call them tomorrow for further follow up.
== END 2016-09-13 21:55 | disposition home or self-care (01) ==
LOC: UCCORT 18:35
DX: J02.9 Acute pharyngitis, unspecified (principal); R09.81 Nasal congestion; H92.01 Otalgia, right ear; I34.1 Nonrheumatic mitral (valve) prolapse; J44.9 Chronic obstructive pulmonary disease, unspecified; J45.909 Unspecified asthma, uncomplicated; K21.9 Gastro-esophageal reflux disease without esophagitis; Z87.891 Personal history of nicotine dependence; Z88.1 Allergy status to other antibiotic agents; Z91.02 Food additives allergy status; Z91.040 Latex allergy status; Z91.011 Allergy to milk products; Z88.6 Allergy status to analgesic agent; Z88.2 Allergy status to sulfonamides; Z88.8 Allergy status to other drugs, medicaments and biological substances; Z91.048 Other nonmedicinal substance allergy status
CPT/HCPCS: 87651; 99211; G0463

== ENCOUNTER 2016-12-08 11:21 | Emergency (ER) | payer MEDICARE, MEDICAID ==
[2016-12-08 11:31] VITALS: BP 106/79
--- NOTE | 2016-12-08 12:13 | UC ---
Knee Pain HPI - HPI Summary HPI Summary: 1. right knee / lower leg and calf pain , injury to right knee x 1 year ago , cont. to be painful s/p gastric bypass surgery about a month ago , no fever, no chills, hx of sleep apnea on cpap at night 2. sinus pain and pressure x 10 days , no cough , + nasal congestion , no fever , no chills - History of Current Complaint Chief Complaint: UCLowerExtremity Stated Complaint: RIGHT KNEE/LEG PAIN & SINUSES Time Seen by Provider: 12/08/16 11:23 Hx Obtained From: Patient Hx Last Menstrual Period: unknown, 9 months ago ?: No Onset/Duration: Gradual Onset, Lasting Days, Lasting Weeks - 52, Still Present, Worse Since - past one week Severity Initially: Moderate Severity Currently: Moderate Character: Aching Aggravating Factor(s): Movement, Weight Bearing, Prolonged Standing, Stairs Alleviating Factor(s): Nothing Associated Signs And Symptoms: Positive: Swelling, Weakness. Negative: Redness , Bruising, Fever, Numbness, Tingling Able to Bear Weight: Yes - Allergies/Home Medications Allergies/Adverse Reactions: Allergies Allergy/AdvReac Type Severity Reaction Status Date / Time Fluticasone Allergy Difficulty Verified 12/08/16 11:31 [From Advair Diskus] Breathing Latex Allergy Difficulty Verified 12/08/16 11:31 Breathing Prednisone Allergy Difficulty Verified 12/08/16 11:31 Breathing Pseudoephedrine Allergy Unknown Verified 12/08/16 11:31 [From Sudafed] Reaction Details Salmeterol Allergy Difficulty Verified 12/08/16 11:31 [From Advair Diskus] Breathing Sulfa Drugs Allergy UNKNOWN Verified 12/08/16 11:31 REACTION Aspartame [From Alavert] AdvReac Dizziness Verified 12/08/16 11:31 Aspirin AdvReac Tachycardia Verified 12/08/16 11:31 Chocolate AdvReac RASH, N/V Verified 12/08/16 11:31 Famotidine [From Pepcid] AdvReac Vomiting Verified 12/08/16 11:31 Levofloxacin [From Levaquin] AdvReac Headache Verified 12/08/16 11:31 Loratadine [From Alavert] AdvReac Dizziness Verified 12/08/16 11:31 Metoclopramide [From Reglan] AdvReac Dizziness Verified 12/08/16 11:31 Polyethylene Glycol AdvReac GI Upset Verified 12/08/16 11:31 [From MiraLax] antihistamines other than AdvReac Tachycardia Uncoded 12/08/16 11:31 Benadryl DAIRY AdvReac FLARES UP Uncoded 12/08/16 11:31 ASTHMA SPICES AdvReac RASH, N/V Uncoded 12/08/16 11:31 TOMATOES AdvReac N/V, RASH Uncoded 12/08/16 11:31 PMH/Surg Hx/FS Hx/Imm Hx Previously Healthy: Yes Respiratory History: Asthma, Other - sleep apnea Other Respiratory History: none - Surgical History Surgical History: Yes Surgery Procedure, Year, and Place: Left kidney benign tumor removed 07/24/13- [place], [place], Benign tumor removed left kidney 1999; abdominal hernia at [place], [place]; 2X of her sinuses and a polyp removed to the top of her nose 2010. Other Surgical History: pt is scheduled to have gastric bypass in the next month - Family History Known Family History: Positive: None, Respiratory Disease, Other - Denies any FMH of bleeding disorders Negative: Cardiac Disease, Hypertension, Diabetes - Social History Alcohol Use: None Substance Use Type: None Smoking Status (MU): Never Smoked Tobacco When Did the Patient Quit Smoking/Using Tobacco: 1999 - Immunization History Most Recent Influenza Vaccination: none Most Recent Tetanus Shot: 02/2012 Review of Systems Constitutional: Negative Skin: Negative Eyes: Negative ENT: Nasal Discharge, Sinus Congestion, Sinus Pain/Tenderness Cardiovascular: Negative Gastrointestinal: Negative Genitourinary: Negative Musculoskeletal: Calf Tenderness All Other Systems Reviewed And Are Negative: Yes Physical Exam Triage Information Reviewed: Yes Appearance: Well-Appearing, No Pain Distress, Obese Vital Signs: Initial Vital Signs Temp 98.8 F 12/08/16 11:23 Pulse 69 12/08/16 11:23 Resp 16 12/08/16 11:23 BP 106/79 12/08/16 11:23 Pulse Ox 100 12/08/16 11:23 Vital Signs Reviewed: Yes Eyes: Positive: Conjunctiva Clear ENT: Positive: Normal ENT inspection, Hearing grossly normal, Pharynx normal, Nasal congestion, Nasal drainage, TMs normal, Other: - maxillary sinus tenderness Neck: Positive: Supple, Nontender, No Lymphadenopathy Respiratory: Positive: Chest non-tender, Lungs clear, Normal breath sounds, No respiratory distress Cardiovascular: Positive: RRR, No Murmur, Pulses Normal Abdominal Exam: Normal Abdomen Description: Positive: Nontender Bowel Sounds: Positive: Present Musculoskeletal: Positive: Other: - right knee: no swelling, no effusion , + diffuse tenderness, good ROM on flexion and extension right calf: + mild swelling, + tenderness Diagnostics - Laboratory Diagnostic Studies Completed/Ordered: negative venous dopper of the right lower ext. no DVT Knee Pain Course/Dx - Differential Dx/Diagnosis Provider Diagnoses: right knee pain. sinusitis Discharge - Discharge Plan Condition: Stable Disposition: HOME Patient Education Materials: Knee Pain (ED), Sinusitis (ED) Referrals: Juan Baxter MD [Primary Care Provider] - 2 Weeks
--- NOTE | 2016-12-08 12:56 | RAD ---
Indication: Leg edema. Duplex Doppler sonography of the deep venous system of the lower extremity deep venous system was performed. Bilaterally the common femoral veins appear patent and compressible. Right proximal greater saphenous vein, proximal deep femoral vein, femoral vein, popliteal vein, posterior tibial veins and peroneal veins appear patent and compressible. IMPRESSION: NO EVIDENCE OF DEEP VENOUS THROMBOSIS IS IDENTIFIED.
== END 2016-12-08 13:07 | disposition home or self-care (01) ==
LOC: UCCORT 11:21
DX: M25.561 Pain in right knee (principal); J32.9 Chronic sinusitis, unspecified; J45.909 Unspecified asthma, uncomplicated; G47.30 Sleep apnea, unspecified
CPT/HCPCS: 99212; G0463

== ENCOUNTER 2017-03-10 13:04 | Emergency (ER) | payer MEDICARE, MEDICAID ==
[2017-03-10 13:38] VITALS: BP 122/73
--- NOTE | 2017-03-10 14:24 | UC ---
Complaint Female HPI - HPI Summary HPI Summary: Continue with the instructions from the urologist as already planned. the abd pain is LLQ and has been present for months. she is followed by Dr. murguia who did hernia surgery LLQ back in December. She has also had gastic bypass surgery and left renal mass surgery. No fevers, vomiting, blood in stool. there is constipation but this is remedies by dulcolace and prune juice. She is eating well. No vomiting. No fever. The roe nhas been present the same way as prior weeks. it hurts more to flex her lower back and compress this area. she has an appt with urology and Dr. murguia this week. Urology sent her here for urine studies. No vaginal symptoms. she has had some dysuria. - History Of Current Complaint Chief Complaint: UCAbdominalPain Stated Complaint: ASTHMA,LEFT SIDE PAIN Time Seen by Provider: 03/10/17 14:05 Hx Obtained From: Patient Hx Last Menstrual Period: unknown, 9 months ago Onset/Duration: Gradual Onset, Lasting Weeks Timing: Constant Severity Initially: Moderate Severity Currently: Moderate Character: Cramping - aching pain. Aggravating Factor(s): Movement Alleviating Factor(s): Position Associated Signs And Symptoms: Positive: Negative - Allergies/Home Medications Allergies/Adverse Reactions: Allergies Allergy/AdvReac Type Severity Reaction Status Date / Time Fluticasone Allergy Difficulty Verified 12/08/16 11:31 [From Advair Diskus] Breathing Latex Allergy Difficulty Verified 12/08/16 11:31 Breathing Pseudoephedrine Allergy Unknown Verified 12/08/16 11:31 [From Sudafed] Reaction Details Salmeterol Allergy Difficulty Verified 12/08/16 11:31 [From Advair Diskus] Breathing Sulfa Drugs Allergy UNKNOWN Verified 12/08/16 11:31 REACTION Aspartame [From Alavert] AdvReac Dizziness Verified 12/08/16 11:31 Aspirin AdvReac Tachycardia Verified 12/08/16 11:31 Chocolate AdvReac RASH, N/V Verified 12/08/16 11:31 Famotidine [From Pepcid] AdvReac Vomiting Verified 12/08/16 11:31 Levofloxacin [From Levaquin] AdvReac Headache Verified 12/08/16 11:31 Loratadine [From Alavert] AdvReac Dizziness Verified 12/08/16 11:31 Metoclopramide [From Reglan] AdvReac Dizziness Verified 12/08/16 11:31 Polyethylene Glycol AdvReac GI Upset Verified 12/08/16 11:31 [From MiraLax] DAIRY AdvReac FLARES UP Uncoded 12/08/16 11:31 ASTHMA SPICES AdvReac RASH, N/V Uncoded 12/08/16 11:31 TOMATOES AdvReac N/V, RASH Uncoded 12/08/16 11:31 PMH/Surg Hx/FS Hx/Imm Hx Previously Healthy: No - prior renal mass. constipation. - Surgical History Surgical History: Yes Surgery Procedure, Year, and Place: Left kidney benign tumor removed 07/24/13- [place], [place], Benign tumor removed left kidney 1999; abdominal hernia at [place], [place]; 2X of her sinuses and a polyp removed to the top of her nose 2010. Other Surgical History: pt is scheduled to have gastric bypass in the next month - Family History Known Family History: Positive: None, Respiratory Disease, Other - Denies any FMH of bleeding disorders Negative: Cardiac Disease, Hypertension, Diabetes - Social History Alcohol Use: None Substance Use Type: None Smoking Status (MU): Never Smoked Tobacco When Did the Patient Quit Smoking/Using Tobacco: 1999 - Immunization History Most Recent Influenza Vaccination: none Most Recent Tetanus Shot: 02/2012 Review of Systems Gastrointestinal: Abdominal Pain All Other Systems Reviewed And Are Negative: Yes Physical Exam Triage Information Reviewed: Yes Appearance: Well-Appearing - she easily changes position without any signs of pain., Obese Vital Signs: Initial Vital Signs Temp 97.9 F 03/10/17 13:23 Pulse 91 03/10/17 13:23 Resp 16 03/10/17 13:23 BP 122/73 03/10/17 13:23 Pulse Ox 98 03/10/17 13:23 Vital Signs Reviewed: Yes Eyes: Positive: Conjunctiva Clear ENT: Positive: Pharynx normal Neck: Positive: Supple, Nontender, No Lymphadenopathy Respiratory: Positive: Normal breath sounds, No respiratory distress, No accessory muscle use. Negative: Respiratory distress, Crackles, Rhonchi, Stridor, Wheezing Cardiovascular: Positive: RRR, No Murmur, Pulses Normal, Brisk Capillary Refill Abdomen Description: Positive: Soft, Other: - there is tenderness difusely of the LLQ without rebound.. Negative: CVA Tenderness (R), CVA Tenderness (L), Distended, Guarding Musculoskeletal: Positive: Strength Intact, ROM Intact, No Edema Neurological: Positive: Alert, Muscle Tone Normal Skin: Positive: rashes Complaint Female Dx - Course Course Of Treatment: non surgical abd. 2+ blood. SHe has close f/u with urology and general surgery. - Differential Dx/Diagnosis Provider Diagnoses: chronic abd pain. dysuria. Discharge - Discharge Plan Condition: Good Disposition: HOME Patient Education Materials: Abdominal Pain (ED), Chronic Abdominal Pain (ED), Dysuria (ED) Additional Instructions: follow up with Dr. Murguia as already planned.
== END 2017-03-10 14:31 | disposition home or self-care (01) ==
LOC: UCCORT 13:04
DX: R10.32 Left lower quadrant pain (principal); R30.0 Dysuria; Z88.6 Allergy status to analgesic agent; Z88.1 Allergy status to other antibiotic agents; Z91.040 Latex allergy status; Z91.011 Allergy to milk products; Z88.2 Allergy status to sulfonamides; Z88.8 Allergy status to other drugs, medicaments and biological substances; Z91.018 Allergy to other foods
CPT/HCPCS: 81003; 99211; G0463

== ENCOUNTER 2017-04-16 11:32 | Emergency (ER) | payer MEDICARE, MEDICAID ==
--- NOTE | 2017-04-16 12:46 | UC ---
Throat Pain/Nasal Kyaw HPI - HPI Summary HPI Summary: 47 y/o female PMHX of brochioectasis presents to the urgent care c/o sore throat and B/L ear pain for the past 5 days. Pt reports she went to the ENT last week and he told her it was a viral infection and didn't Rx anything. She Also states having unprotected sexual intercourse about 1 month ago, she is concern about . LMP:03/06/17 with irregular menstrual cycles. She also states white, itchy vaginal discharge with fervency on urination. She usually gets a yeast infection since she takes clindamycin PO on a daily basis. Pt also states she takes Prednisone prn. Pt denies fever, abdominal pain, N/V/D, urinary , lower back pain or pelvic pain. - History of Current Complaint Stated Complaint: SORE THROAT RIGHT EAR SINUS Time Seen by Provider: 04/16/17 12:45 Hx Obtained From: Patient Hx Last Menstrual Period: 03/06/2017 ?: No - not sure Onset/Duration: Gradual Onset, Lasting Days - 5 days ago, Still Present Severity: Moderate Pain Intensity: 6 Pain Scale Used: 0-10 Numeric Cough: Nonproductive Associated Signs & Symptoms: Positive: Dysphagia, Other - B/L ear pain. Negative: Sinus Discomfort, Nasal Discharge, Fever Related History: Other (Noted In Comments) - Hx of bronchioectasis - Epiglottits Risk Factors Epiglottis Risk Factors: Negative - Allergies/Home Medications Allergies/Adverse Reactions: Allergies Allergy/AdvReac Type Severity Reaction Status Date / Time Fluticasone Allergy Difficulty Verified 04/16/17 12:49 [From Advair Diskus] Breathing Latex Allergy Difficulty Verified 04/16/17 12:49 Breathing Pseudoephedrine Allergy Unknown Verified 04/16/17 12:49 [From Sudafed] Reaction Details Salmeterol Allergy Difficulty Verified 04/16/17 12:49 [From Advair Diskus] Breathing Sulfa Drugs Allergy UNKNOWN Verified 04/16/17 12:49 REACTION Aspartame [From Alavert] AdvReac Dizziness Verified 04/16/17 12:49 Aspirin AdvReac Tachycardia Verified 04/16/17 12:49 Chocolate AdvReac RASH, N/V Verified 04/16/17 12:49 Famotidine [From Pepcid] AdvReac Vomiting Verified 04/16/17 12:49 Levofloxacin [From Levaquin] AdvReac Headache Verified 04/16/17 12:49 Loratadine [From Alavert] AdvReac Dizziness Verified 04/16/17 12:49 Metoclopramide [From Reglan] AdvReac Dizziness Verified 04/16/17 12:49 Polyethylene Glycol AdvReac GI Upset Verified 04/16/17 12:49 [From MiraLax] DAIRY AdvReac FLARES UP Uncoded 04/16/17 12:49 ASTHMA SPICES AdvReac RASH, N/V Uncoded 04/16/17 12:49 TOMATOES AdvReac N/V, RASH Uncoded 04/16/17 12:49 Home Medications: Home Medications Clindamycin HCl [Clindamycin 150 MG CAP*] 300 mg PO TID 04/16/17 [History Confirmed 04/16/17] PMH/Surg Hx/FS Hx/Imm Hx Previously Healthy: Yes Respiratory History: Asthma Other Respiratory History: Bronchioectasis - Surgical History Surgical History: Yes Surgery Procedure, Year, and Place: Left kidney benign tumor removed 07/24/13- [place], [place], Benign tumor removed left kidney 1999; abdominal hernia at [place], [place]; 2X of her sinuses and a polyp removed to the top of her nose 2010. Other Surgical History: pt is scheduled to have gastric bypass in the next month - Family History Known Family History: Positive: Cardiac Disease, Hypertension, Diabetes, Respiratory Disease - Social History Occupation: Employed Full-time Lives: With Family Alcohol Use: None Substance Use Type: None Smoking Status (MU): Never Smoked Tobacco When Did the Patient Quit Smoking/Using Tobacco: 1999 - Immunization History Most Recent Influenza Vaccination: none Most Recent Tetanus Shot: 02/2012 Vaccination Up to Date: Yes Review of Systems Constitutional: Negative Skin: Negative Eyes: Negative ENT: Sore Throat, Ear Ache - B/L, Nasal Discharge - clear discharge Respiratory: Cough - dry Cardiovascular: Negative Gastrointestinal: Negative Genitourinary: Negative Motor: Negative Neurovascular: Negative Musculoskeletal: Negative Neurological: Negative Psychological: Negative Is Patient Immunocompromised?: No All Other Systems Reviewed And Are Negative: Yes Physical Exam Triage Information Reviewed: Yes - Additional Comments VITAL SIGNS: Reviewed. GENERAL: Patient is a well developed and nourished female who is sitting comfortable in the examining table. Patient is not in any acute respiratory distress. HEAD AND FACE: No signs of trauma. No ecchymosis, hematomas or skull depressions. No sinus tenderness. EYES: PERRLA, EOMI x 2, No injected conjunctiva, no nystagmus. No photophobia. EARS: Hearing grossly intact. Ear canals and tympanic membranes are within normal limits. MOUTH: Positive pharynx with erythema, no exudates, no palatal petechiae. NO B/ L tonsillar enlargement w/ oexudate. Uvula in midline. NECK: Supple, trachea is midline, Positive anterior cervical lymphadenopathy, no JVD, no carotid bruit, no c-spine tenderness, neck with full ROM. No meningeal signs, no Kernig's or brudzinskis signs. CHEST: Symmetric, no tenderness at palpation LUNGS: Clear to auscultation bilaterally. No wheezing or crackles. CVS: Regular rate and rhythm, S1 and S2 present, no murmurs or gallops appreciated. ABDOMEN: Soft, non-tender. No signs of distention. No rebound no guarding, and no masses palpated. Bowel sounds are normal. EXTREMITIES: FROM in all major joints, no edema, no cyanosis or clubbing. NEURO: Alert and oriented x 3. No acute neurological deficits. Speech is normal and follows commands. SKIN: Dry and warm Throat Pain/Nasal Course/Dx - Course Course Of Treatment: 47 y/o female PMHX of brochioectasis presents to the urgent care c/o sore throat and B/L ear pain for the past 5 days. Pt reports she went to the ENT last week and he told her it was a viral infection and didn' t Rx anything. She Also states having unprotected sexual intercourse about 1 month ago, she is concern about . LMP:03/06/17 with irregular menstrual cycles. She also states white, itchy vaginal discharge with fervency on urination. She usually gets a yeast infection since she takes clindamycin PO on a daily basis. Pt also states she takes Prednisone prn. Pt denies fever, abdominal pain, N/V/D, urinary, lower back pain or pelvic pain. Hx obtained. Pt with pharyngitis on examiantion. Pt declined Pelvic examiantion. UA: negative and test : negative. Pt with Rx Chlotrimazole vaginal cream to alleviate candidiasis since she takes Clyndamicin on a daily basis. Rapid strep ordered, result: negative. Viral pharyngitis.Pt Rx tylenol PO to alleviates symptoms of pain and swelling. Advised on hand washing to avoid spreading. Pt advised to rest, eat well and avoid strenuous exercise. Advised to f/u with her PCP if symptoms do not improve for further evaluation and treatment. Pt understood and agreed with plan of care. - Differential Dx/Diagnosis Differential Diagnosis/HQI/PQRI: Influenza, Laryngitis, Mononucleosis, Otitis Media, Peritonsillar Abscess, Pharyngitis, Sinusitis, Tonsillitis, URI, Other - candidiasis, BV Provider Diagnoses: 1- Viral pharyngitis. 2- Vulvovaginal Candidiasis Discharge - Discharge Plan Condition: Stable Disposition: HOME Prescriptions: Acetaminophen TAB* [Tylenol TAB*] 650 mg PO Q4H PRN #20 tab PRN Reason: Pain Clotrimazole 1% VAGINAL CREAM* [Gyne-Lotrimin 1% VAGINAL CREAM*] 1 applic VAGINAL BEDTIME #1 sho Patient Education Materials: Pharyngitis (ED), Vulvovaginal Candidiasis (ED) Referrals: Juan Baxter MD [Primary Care Provider] - Additional Instructions: 1-Please take tylenol PO q6-8hrs prn as instructed after meals to alleviate pain and swelling. Increase fluid intake, eat well, rest and avoid strenuous exercise 1- Apply topical cream as directed to alleviate symptoms of Vaginal Candidiasis 3-If symptoms do not improve or worsen please return to the urgent care or f/u with your PCP for further evaluation and treatment.
[2017-04-16 12:49] VITALS: BP 126/54
== END 2017-04-16 13:55 | disposition home or self-care (01) ==
LOC: UCCORT 11:32
DX: J02.8 Acute pharyngitis due to other specified organisms (principal); B97.89 Other viral agents as the cause of diseases classified elsewhere; B37.3 Candidiasis of vulva and vagina; Z32.02 Encounter for pregnancy test, result negative
CPT/HCPCS: 81003; 84702; 87651; 99212; G0463

== ENCOUNTER 2017-05-02 14:27 | Emergency (ER) | payer MEDICARE, MEDICAID | END 2017-05-02 14:48 | disposition left against medical advice (07) | LOC: UCCORT 14:27 | DX: J34.89 Other specified disorders of nose and nasal sinuses (principal); M54.9 Dorsalgia, unspecified; M25.559 Pain in unspecified hip; Z53.21 Procedure and treatment not carried out due to patient leaving prior to being seen by health care provider ==

== ENCOUNTER 2017-05-09 10:58 | Emergency (ER) | payer MEDICARE, MEDICAID ==
[2017-05-09 12:06] VITALS: BP 114/49
--- NOTE | 2017-05-09 12:13 | UC ---
HPI BURN - HPI Summary HPI Summary: Here to get small 1 week old burn on center of abdomen re-checked---seen pcp in the middle of the week and it was healing fine---, also has a little buring with urination want to be sure she does not have a uti or is ---is currently on Ceftin for Sinus infection---states she has no unusual vaginal discharge - History of Current Complaint Chief Complaint: UCSkin Stated Complaint: BURN-ABDOMEN Time Seen by Provider: 05/09/17 12:02 Hx Obtained From: Patient Hx Last Menstrual Period: 03/06/2017 Occurred: Days Ago - 7 Length of Exposure: Seconds Onset Severity: Moderate Current Severity: Mild Location: Other - less and 0.25% superficial burn on abdomen from hot water Character: Scald Aggravating Factor(s): Nothing Alleviating Factor(s): Cool Soaks, Ointments Associated Signs & Symptoms: Positive: Negative Occupational Injury: No - Allergy/Home Medications Allergies/Adverse Reactions: Allergies Allergy/AdvReac Type Severity Reaction Status Date / Time Fluticasone Allergy Difficulty Verified 05/09/17 11:58 [From Advair Diskus] Breathing Latex Allergy Difficulty Verified 05/09/17 11:58 Breathing Pseudoephedrine Allergy Unknown Verified 05/09/17 11:58 [From Sudafed] Reaction Details Salmeterol Allergy Difficulty Verified 05/09/17 11:58 [From Advair Diskus] Breathing Sulfa Drugs Allergy UNKNOWN Verified 05/09/17 11:58 REACTION Aspartame [From Alavert] AdvReac Dizziness Verified 05/09/17 11:58 Aspirin AdvReac Tachycardia Verified 05/09/17 11:58 Chocolate AdvReac RASH, N/V Verified 05/09/17 11:58 Famotidine [From Pepcid] AdvReac Vomiting Verified 05/09/17 11:58 Levofloxacin [From Levaquin] AdvReac Headache Verified 05/09/17 11:58 Loratadine [From Alavert] AdvReac Dizziness Verified 05/09/17 11:58 Metoclopramide [From Reglan] AdvReac Dizziness Verified 05/09/17 11:58 Polyethylene Glycol AdvReac GI Upset Verified 05/09/17 11:58 [From MiraLax] DAIRY AdvReac FLARES UP Uncoded 05/09/17 11:58 ASTHMA SPICES AdvReac RASH, N/V Uncoded 05/09/17 11:58 TOMATOES AdvReac N/V, RASH Uncoded 05/09/17 11:58 Home Medications: Home Medications Cefuroxime Axetil [Ceftin 250 MG] 250 mg PO BID 05/09/17 [History Confirmed ] Omeprazole CAP* [Prilosec CAP* 20 MG] 20 mg PO DAILY 05/09/17 [History Confirmed 05/09/17] PMH/Surg Hx/FS Hx/Imm Hx Previously Healthy: No Respiratory History: Asthma GI/ History: Gastroesophageal Reflux - Surgical History Surgical History: Yes Surgery Procedure, Year, and Place: Left kidney benign tumor removed 07/24/13- [place], [place], Benign tumor removed left kidney 1999; abdominal hernia at [place], [place]; 2X of her sinuses and a polyp removed to the top of her nose 2010. Other Surgical History: pt is scheduled to have gastric bypass in the next month - Family History Known Family History: Positive: None, Cardiac Disease, Hypertension, Diabetes, Respiratory Disease, Other - Denies any FMH of bleeding disorders - Social History Occupation: Unemployed Lives: With Family Alcohol Use: None Substance Use Type: None Smoking Status (MU): Never Smoked Tobacco When Did the Patient Quit Smoking/Using Tobacco: 1999 - Immunization History Most Recent Influenza Vaccination: none Most Recent Tetanus Shot: 02/2012 Vaccination Up to Date: Yes Review of Systems Constitutional: Negative Skin: Other - superficial burn on abdomen Eyes: Negative ENT: Negative Respiratory: Negative Cardiovascular: Negative Gastrointestinal: Negative Genitourinary: Dysuria, Frequency, Other - no period for 3 months Motor: Negative Neurovascular: Negative Musculoskeletal: Negative Neurological: Negative Psychological: Negative Is Patient Immunocompromised?: No All Other Systems Reviewed And Are Negative: Yes Physical Exam Triage Information Reviewed: Yes Appearance: Well-Appearing, No Pain Distress, Well-Nourished Vital Signs Reviewed: Yes Eye Exam: Normal Eyes: Positive: Conjunctiva Clear ENT Exam: Normal ENT: Positive: Normal ENT inspection, Hearing grossly normal, Pharynx normal. Negative: Nasal congestion, Trismus, Muffled voice, Hoarse voice, Sinus tenderness Dental Exam: Normal Neck exam: Normal Neck: Positive: Supple, Nontender Respiratory Exam: Normal Respiratory: Positive: Chest non-tender, No respiratory distress, No accessory muscle use Cardiovascular Exam: Normal Cardiovascular: Positive: RRR, Pulses Normal, Brisk Capillary Refill Musculoskeletal Exam: Normal Musculoskeletal: Positive: Strength Intact, ROM Intact, No Edema Neurological Exam: Normal Neurological: Positive: Alert, Muscle Tone Normal Psychological Exam: Normal Skin Exam: Other Skin: Positive: Other - less than 0.25 % superficial burn on center of abdomen Burn Calculation - [place] Formula for Fluid Resuscitation 24 -Hour Fluid Replacement: 0.0 Diagnostics - Laboratory Diagnostic Studies Completed/Ordered: UA (-) , (-) ua Course/Dx Burn - Course Course Of Treatment: bactroban on burn, increase fluids, follow with pcp - Diagnoses Clinic Provider Diagnoses: 0.25% superficial abd burn, dysuria Discharge - Discharge Plan Condition: Stable Disposition: HOME Prescriptions: Mupirocin 2% CREAM* [Bactroban 2% CREAM*] 1 applic TOPICAL BID #1 tube Patient Education Materials: Superficial Burn (ED), Dysuria (ED) Referrals: Juan Baxter MD [Primary Care Provider] - 1 Week
== END 2017-05-09 12:53 | disposition home or self-care (01) ==
LOC: UCCORT 10:58
DX: T21.02XD Burn of unspecified degree of abdominal wall, subsequent encounter (principal); T31.0 Burns involving less than 10% of body surface; X12.XXXD Contact with other hot fluids, subsequent encounter; R30.0 Dysuria; Z32.02 Encounter for pregnancy test, result negative; J45.909 Unspecified asthma, uncomplicated; K21.9 Gastro-esophageal reflux disease without esophagitis; Z88.2 Allergy status to sulfonamides; Z88.8 Allergy status to other drugs, medicaments and biological substances; Z88.6 Allergy status to analgesic agent; Z91.040 Latex allergy status
CPT/HCPCS: 81003; 84702; 99212; G0463

== ENCOUNTER 2017-06-13 12:32 | Emergency (ER) | payer MEDICARE, MEDICAID ==
[2017-06-13 13:28] VITALS: BP 134/72
== END 2017-06-13 14:55 | disposition left against medical advice (07) ==
LOC: UCCORT 12:32
DX: J45.909 Unspecified asthma, uncomplicated (principal); R05 Cough; Z53.21 Procedure and treatment not carried out due to patient leaving prior to being seen by health care provider

== ENCOUNTER 2017-06-13 15:00 | Emergency (ER) | payer MEDICARE, MEDICAID | END 2017-06-13 17:11 | disposition left against medical advice (07) | LOC: UCCORT 15:00 | DX: J45.909 Unspecified asthma, uncomplicated (principal); Z53.21 Procedure and treatment not carried out due to patient leaving prior to being seen by health care provider ==

== ENCOUNTER 2017-07-29 12:08 | Emergency (ER) | payer MEDICARE, MEDICAID ==
[2017-07-29 13:11] VITALS: BP 134/100
--- NOTE | 2017-07-29 13:40 | ED ---
Throat Pain/Nasal Congestion - HPI Summary HPI Summary: 47 yr old female with the complaint of sinus pressure, post nasal drip, right ear pain, sore throat. Onset a few days ago. She denies SOB. - History of Current Complaint Chief Complaint: UCRespiratory Time Seen by Provider: 07/29/17 13:25 - Allergies/Home Medications Allergies/Adverse Reactions: Allergies Allergy/AdvReac Type Severity Reaction Status Date / Time MS Fluticasone Allergy Difficulty Verified 07/29/17 13:12 [From Advair Diskus] Breathing MS Latex [Latex] Allergy Difficulty Verified 07/29/17 13:12 Breathing MS Pseudoephedrine Allergy Unknown Verified 07/29/17 13:12 [From Sudafed] Reaction Details MS Salmeterol Allergy Difficulty Verified 07/29/17 13:12 [From Advair Diskus] Breathing MS Sulfa Drugs [Sulfa Drugs] Allergy UNKNOWN Verified 07/29/17 13:12 REACTION MS Aspartame [From Alavert] AdvReac Dizziness Verified 07/29/17 13:12 MS Aspirin [Aspirin] AdvReac Tachycardia Verified 07/29/17 13:12 MS Chocolate [Chocolate] AdvReac RASH, N/V Verified 07/29/17 13:12 MS Famotidine [From Pepcid] AdvReac Vomiting Verified 07/29/17 13:12 MS Levofloxacin AdvReac Headache Verified 07/29/17 13:12 [From Levaquin] MS Loratadine [From Alavert] AdvReac Dizziness Verified 07/29/17 13:12 MS Metoclopramide AdvReac Dizziness Verified 07/29/17 13:12 [From Reglan] MS Polyethylene Glycol AdvReac GI Upset Verified 07/29/17 13:12 [From MiraLax] DAIRY AdvReac FLARES UP Uncoded 06/13/17 13:29 ASTHMA SPICES AdvReac RASH, N/V Uncoded 06/13/17 13:29 TOMATOES AdvReac N/V, RASH Uncoded 06/13/17 13:29 Home Medications: Home Medications Beclomethasone Dipropionate [Qnasl] 1 spray BOTH NARES ONCE PRN 07/29/17 [ History Confirmed 07/29/17] PMH/Surg Hx/FS Hx/Imm Hx Endocrine/Hematology History: Reports: Hx Anemia - AFTER HAVING SON- 16 YEARS AGO, Other Endocrine/Hematological Disorders - 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 Denies: Hx Angina, Hx Congestive Heart Failure, Hx Hypertension, Hx Pacemaker /ICD Respiratory History: Reports: Hx Asthma, Hx Chronic Bronchitis, Hx Chronic Obstructive Pulmonary Disease (COPD), Other Respiratory Problems/Disorders - BRONCHIECTISIS GI History: Reports: Hx Gastroesophageal Reflux Disease - ON NEXIUM FOR, Other GI Disorders - GERD; acid reflux disease Denies: Hx Ulcer History: Reports: Other Problems/Disorders - LT KIDNEY TUMOR REMOVED Denies: Hx Dialysis, Hx Renal Disease Musculoskeletal History: Reports: Hx Bursitis - HX OF- PELVIC, Hx Tendonitis - RIGHT ARM, Other Musculoskeletal History - scoliosis Sensory History: Denies: Hx Contacts or Glasses, Hx Hearing Aid Opthamlomology History: Denies: Hx Contacts or Glasses Neurological History: Reports: Hx Headaches - ON OCCASION-TYLENOL Denies: Hx Seizures Psychiatric History: Denies: Hx Substance Abuse - Cancer History Hx Chemotherapy: No - Surgical History Surgery Procedure, Year, and Place: Left kidney benign tumor removed 07/24/13- [place], [place], Benign tumor removed left kidney 1999; abdominal hernia at [place], [place]; 2X of her sinuses and a polyp removed to the top of her nose 2010. Hx Anesthesia Reactions: Yes - DIFFICULTY TIME WAKING UP, GROGGY FOR DAYS - Immunization History Date of Tetanus Vaccine: unk Date of Influenza Vaccine: unk Infectious Disease History: No Infectious Disease History: Reports: Hx Clostridium Difficile, Hx Shingles Denies: Hx Hepatitis, Hx Human Immunodeficiency Virus (HIV), Hx Tuberculosis , Hx Known/Suspected VRE, Hx Known/Suspected VRSA, History Other Infectious Disease, Traveled Outside the in Last 30 Days - Family History Known Family History: Positive: None, Cardiac Disease, Hypertension, Diabetes, Respiratory Disease, Other - Denies any FMH of bleeding disorders - Social History Alcohol Use: None Hx Substance Use: No Substance Use Type: Reports: None Hx Tobacco Use: No Smoking Status (MU): Never Smoked Tobacco Review of Systems Constitutional: Negative Positive: Sore Throat, Ear Ache, Nasal Discharge Positive: Cough All Other Systems Reviewed And Are Negative: Yes Physical Exam Triage Information Reviewed: Yes Vital Signs On Initial Exam: Initial Vitals Temp Pulse Resp BP Pulse Ox 95.9 F 99 16 134/100 99 07/29/17 13:03 07/29/17 13:03 07/29/17 13:03 07/29/17 13:03 07/29/17 13:03 Vital Signs Reviewed: Yes Appearance: Positive: Well-Appearing, No Pain Distress Skin: Positive: Warm, Skin Color Reflects Adequate Perfusion Head/Face: Positive: Normal Head/Face Inspection Eyes: Positive: EOMI ENT: Positive: Pharyngeal erythema, Nasal congestion, Nasal drainage, TM red - right, Sinus tenderness Neck: Positive: Supple, Nontender Respiratory/Lung Sounds: Positive: Clear to Auscultation, Breath Sounds Present , Decreased Breath Sounds Cardiovascular: Positive: RRR. Negative: Murmur Abdomen Description: Positive: Nontender Musculoskeletal: Positive: Strength/ROM Intact Neurological: Positive: Sensory/Motor Intact, Alert, Oriented to Person Place, Time, CN Intact II-III Psychiatric: Positive: Normal - [place] Coma Scale Best Eye Response: 4 - Spontaneous Best Motor Response: 6 - Obeys Commands Best Verbal Response: 5 - Oriented Coma Scale Total: 15 Diagnostics - Vital Signs Vital Signs Temp Pulse Resp BP Pulse Ox 07/29/17 13:03 95.9 F 99 16 134/100 99 - Laboratory Lab Statement: Any lab studies that have been ordered have been reviewed, and results considered in the medical decision making process. EENT Course/Dx - Course Course Of Treatment: 47 yr old female with sinusitis and right OM. She will follow up with PMD for BP check. - Diagnoses Provider Diagnoses: Sinusitis, Pharyngitis, Otitis media, Hypertension Discharge - Discharge Plan Condition: Good Disposition: HOME Prescriptions: Amoxicillin/Clavulanate TAB* [Augmentin TAB 875*] 875 mg PO BID #20 tab Patient Education Materials: Sinusitis (ED), Ear Infection (ED), Pharyngitis ( ED), Hypertension (ED) Referrals: Juan Baxter MD [Primary Care Provider] - 2 Days
== END 2017-07-29 13:47 | disposition home or self-care (01) ==
LOC: UCCORT 12:08
DX: J32.9 Chronic sinusitis, unspecified (principal); J02.9 Acute pharyngitis, unspecified; H66.91 Otitis media, unspecified, right ear; I10 Essential (primary) hypertension; Z88.1 Allergy status to other antibiotic agents; Z91.011 Allergy to milk products; Z88.8 Allergy status to other drugs, medicaments and biological substances; Z91.018 Allergy to other foods
CPT/HCPCS: 99212; G0463

== ENCOUNTER 2017-11-01 12:28 | Emergency (ER) | payer MEDICARE, MEDICAID ==
[2017-11-01 13:38] VITALS: BP 128/59
--- NOTE | 2017-11-01 14:01 | UC ---
UC General HPI - HPI Summary HPI Summary: Pt c/o intermittent feeling of generalized warmth and chills X 2 weeks. Pt has not had a menstrual period for 10 months. Pt also is concerned that she was told her cholesterol is elevated. - History of Current Complaint Chief Complaint: UCGeneralIllness Stated Complaint: HOT AND COLD CHILLS Time Seen by Provider: 11/01/17 13:34 Hx Obtained From: Patient Hx Last Menstrual Period: n/a Onset/Duration: Gradual Onset, Lasting Weeks, Still Present Timing: Intermittent Episodes Lasting: Onset Severity: Mild Current Severity: None Pain Intensity: 0 - Allergy/Home Medications Allergies/Adverse Reactions: Allergies Allergy/AdvReac Type Severity Reaction Status Date / Time aspirin Allergy Tachycardia Verified 11/01/17 13:48 chocolate flavor Allergy Hives Verified 11/01/17 13:48 fluticasone Allergy Difficulty Verified 11/01/17 13:48 [From Advair Diskus] Breathing Latex, Natural Rubber Allergy Difficulty Verified 11/01/17 13:48 Breathing levofloxacin [From Levaquin] Allergy Headache Verified 11/01/17 13:48 loratadine Allergy Dizziness Verified 11/01/17 13:48 metoclopramide [From Reglan] Allergy Dizziness Verified 11/01/17 13:48 polyethylene glycol 3350 Allergy GI Upset Verified 11/01/17 13:48 [From Miralax] pseudoephedrine Allergy Unknown Verified 11/01/17 13:48 [From Sudafed] Reaction Details salmeterol Allergy Difficulty Verified 11/01/17 13:48 [From Advair Diskus] Breathing Sulfa (Sulfonamide Allergy Unknown Verified 11/01/17 13:48 Antibiotics) Reaction Details famotidine [From Pepcid] AdvReac Vomiting Verified 11/01/17 13:48 DAIRY AdvReac FLARES UP Uncoded 06/13/17 13:29 ASTHMA SPICES AdvReac RASH, N/V Uncoded 06/13/17 13:29 TOMATOES AdvReac N/V, RASH Uncoded 06/13/17 13:29 Home Medications: Home Medications Linaclotide [Linzess] 72 mcg PO DAILY 11/01/17 [History Confirmed 11/01/17] PMH/Surg Hx/FS Hx/Imm Hx Previously Healthy: Yes - Surgical History Surgical History: Yes Surgery Procedure, Year, and Place: Left kidney benign tumor removed 07/24/13- [place], [place], Benign tumor removed left kidney 1999; abdominal hernia at [place], [place]; 2X of her sinuses and a polyp removed to the top of her nose 2010. Other Surgical History: pt is scheduled to have gastric bypass in the next month - Family History Known Family History: Positive: None, Cardiac Disease, Hypertension, Diabetes, Respiratory Disease, Other - Denies any FMH of bleeding disorders - Social History Occupation: Unemployed Lives: With Family Alcohol Use: None Substance Use Type: None Smoking Status (MU): Never Smoked Tobacco Have You Smoked in the Last Year: No When Did the Patient Quit Smoking/Using Tobacco: 1999 - Immunization History Most Recent Influenza Vaccination: none Most Recent Tetanus Shot: 02/2012 Vaccination Up to Date: Yes Review of Systems Constitutional: Negative Skin: Negative Eyes: Negative ENT: Negative Respiratory: Negative Cardiovascular: Negative Gastrointestinal: Negative Genitourinary: Negative Motor: Negative Neurovascular: Negative Musculoskeletal: Negative Neurological: Negative Psychological: Negative Is Patient Immunocompromised?: No All Other Systems Reviewed And Are Negative: Yes Physical Exam Triage Information Reviewed: Yes Appearance: Well-Appearing Vital Signs: Initial Vital Signs Temp 98.4 F 11/01/17 13:31 Pulse 79 11/01/17 13:31 Resp 16 11/01/17 13:31 BP 128/59 11/01/17 13:31 Pulse Ox 100 11/01/17 13:31 Eye Exam: Normal ENT Exam: Normal Dental Exam: Normal Neck exam: Normal Respiratory Exam: Normal Cardiovascular Exam: Normal Musculoskeletal Exam: Normal Neurological Exam: Normal Psychological Exam: Normal Skin Exam: Normal Course/Dx - Differential Dx - Multi-Symptom Differential Diagnoses: Other - perimenopause, Provider Diagnoses: rosario menopause. hot flashes Discharge - Sign-Out/Discharge Documenting (check all that apply): Discharge/Admit/Transfer - Discharge Plan Condition: Stable Disposition: HOME Referrals: Juan Baxter MD [Primary Care Provider] - Additional Instructions: Diagnosis: Perimenopause ICD 10: N95.1 Hot flashes - Billing Disposition and Condition Condition: STABLE Disposition: Home
== END 2017-11-01 14:22 | disposition home or self-care (01) ==
LOC: UCCORT 12:28
DX: N95.1 Menopausal and female climacteric states (principal); Z88.6 Allergy status to analgesic agent; Z88.8 Allergy status to other drugs, medicaments and biological substances; Z91.040 Latex allergy status; Z91.02 Food additives allergy status; Z88.1 Allergy status to other antibiotic agents; Z88.2 Allergy status to sulfonamides; Z91.011 Allergy to milk products
CPT/HCPCS: 99212; G0463

== ENCOUNTER 2017-11-06 14:59 | Emergency (ER) | payer MEDICARE, MEDICAID ==
[2017-11-06 15:25] VITALS: BP 150/86
--- NOTE | 2017-11-06 15:54 | UC ---
Abdominal Pain Female HPI - HPI Summary HPI Summary: 47 y/o female presents to the urgent care c/o LLQ abdominal pain since yesterday. Pt reports she ate a chicken Ate chicken yesterday and vomited once. Has had gastric bypass and diverticulitis in past and now has discomfort in lower left quadrant. Pt states she has had fevers but has not taken her temperature. - History of Current Complaint Chief Complaint: UCGeneralIllness Stated Complaint: LOWER LEFT SIDE PAIN, VOMITTING Time Seen by Provider: 11/06/17 15:52 Hx Obtained From: Patient Hx Last Menstrual Period: " a year" ?: No Onset/Duration: Gradual Onset, Lasting Weeks - 2 weeks on and off, Still Present , Worse Since - yesterday Timing: Constant Severity Initially: Mild Severity Currently: Moderate Pain Intensity: 5 Pain Scale Used: 0-10 Numeric Location: Discrete At: LLQ Radiates: No Character: Colicy, Sharp Aggravating Factor(s): Food Alleviating Factor(s): NPO Associated Signs and Symptoms: Positive: Fever - subjective fever, feel hot at times, Nausea, Vomiting - yesterday, resolve today. Negative: Constipation, Urinary Symptoms, Decreased Appetite, Vaginal Bleeding, Vaginal Discharge, Diarrhea - Risk Factors Ectopic Risk Factor: Negative Ovarian Torsion Risk Factor: Negative Allergies/Adverse Reactions: Allergies Allergy/AdvReac Type Severity Reaction Status Date / Time aspirin Allergy Tachycardia Verified 11/06/17 15:25 chocolate flavor Allergy Hives Verified 11/06/17 15:25 fluticasone Allergy Difficulty Verified 11/06/17 15:25 [From Advair Diskus] Breathing Latex, Natural Rubber Allergy Difficulty Verified 11/06/17 15:25 Breathing levofloxacin [From Levaquin] Allergy Headache Verified 11/06/17 15:25 loratadine Allergy Dizziness Verified 11/06/17 15:25 metoclopramide [From Reglan] Allergy Dizziness Verified 11/06/17 15:25 polyethylene glycol 3350 Allergy GI Upset Verified 11/06/17 15:25 [From Miralax] pseudoephedrine Allergy Unknown Verified 11/06/17 15:25 [From Sudafed] Reaction Details salmeterol Allergy Difficulty Verified 11/06/17 15:25 [From Advair Diskus] Breathing Sulfa (Sulfonamide Allergy Unknown Verified 11/06/17 15:25 Antibiotics) Reaction Details famotidine [From Pepcid] AdvReac Vomiting Verified 11/06/17 15:25 DAIRY AdvReac FLARES UP Uncoded 11/06/17 15:25 ASTHMA SPICES AdvReac RASH, N/V Uncoded 11/06/17 15:25 TOMATOES AdvReac N/V, RASH Uncoded 11/06/17 15:25 PMH/Surg Hx/FS Hx/Imm Hx Previously Healthy: Yes GI/ History: Diverticulitis Other GI/ History: stomach hernia s/p gastric bypass surgery - Surgical History Surgical History: Yes Surgery Procedure, Year, and Place: 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 Gastric Bypass surgery 2016 - Family History Known Family History: Positive: Cardiac Disease, Hypertension, Diabetes, Respiratory Disease, Other - Denies any FMH of bleeding disorders - Social History Occupation: Employed Full-time Lives: With Family Alcohol Use: None Substance Use Type: None Smoking Status (MU): Never Smoked Tobacco Have You Smoked in the Last Year: No When Did the Patient Quit Smoking/Using Tobacco: 1999 - Immunization History Most Recent Influenza Vaccination: none Most Recent Tetanus Shot: 02/2012 Vaccination Up to Date: Yes Review of Systems Constitutional: Fever - subjective at home, feel shot and cold at times Skin: Negative Eyes: Negative ENT: Negative Respiratory: Negative Cardiovascular: Negative Gastrointestinal: Abdominal Pain - LLQ abdominal pain, Vomiting - on and off last episode yesterday, Nausea Genitourinary: Negative Motor: Negative Neurovascular: Negative Musculoskeletal: Negative Neurological: Negative Psychological: Negative Is Patient Immunocompromised?: No All Other Systems Reviewed And Are Negative: Yes Physical Exam - Summary Physical Exam Summary: Vital Signs Reviewed: Yes General:Patient is a well developed and nourished female who is sitting comfortable in the examining table. Patient is not in any acute respiratory distress. Eyes: Positive: Conjunctiva Clear - PERRLA, EOMI, fundi grossly normal ENT: Positive: Normal ENT inspection, Hearing grossly normal, Pharynx normal, TMs normal Neck: Positive: Supple, Nontender, No Lymphadenopathy Respiratory: Positive: Chest non-tender, Lungs clear, Normal breath sounds, No respiratory distress Cardiovascular: Positive: RRR,S1 and S2 present, No Murmur, Pulses Normal, Brisk Capillary Refill Abdomen Description: Positive: Nontender, Abd: Flat with no distention. No surface trauma, Left side abdomen scars s/p gastric by pass surgery, incisions. hyperactive bowel sounds present in all four quadrants. LLQ No tenderness, no guarding, no rigidity to palpation. No masses palpated, no pulsation in epigastric area. No organomegaly. Negative [place] signs. No periumbilical tenderness. No rebound in the lower quadrants. NT over McBurneys point. Good femoral pulses bilaterally. No hernia noted. No CVAT bilaterally Musculoskeletal: Positive: Strength Intact, ROM Intact, No Edema,FROM in all major joints, no edema, no cyanosis or clubbing. Neuro: Alert and oriented x 3. No acute neurological deficits. Speech is normal. Psychological: WNL Skin: Dry and warm Triage Information Reviewed: Yes Vital Signs: Initial Vital Signs Temp 98.1 F 11/06/17 15:18 Pulse 92 11/06/17 15:18 Resp 16 11/06/17 15:18 BP 150/86 11/06/17 15:18 Pulse Ox 100 11/06/17 15:18 Abd Pain Female Course/Dx - Differential Dx/Diagnosis Differential Diagnosis: Bowel Obstruction, Diverticulitis, Urinary Tract Infection, Other - GI bleeding Provider Diagnoses: 1-LLQ acute abdominal pain. 2-Diverticulitis Discharge - Discharge Plan Condition: Stable Disposition: HOME Prescriptions: Ciprofloxacin TAB* [Cipro 500 MG TAB*] 500 mg PO BID #20 tab metroNIDAZOLE [Flagyl 500 MG TAB] 500 mg PO TID #30 tab Patient Education Materials: Diverticulitis (ED), Acute Abdominal Pain (ED), Low-Sodium Diet (ED) Referrals: Juan Baxter MD [Primary Care Provider] - 2 Days Hudson Comsb MD [Medical Doctor] - If Needed Additional Instructions: 1- Since you declined to go to the ER for abdominal CT to r/o any abnormality .Please take antibiotics as directed to avoid resistance. 2- Increase fluid intake, eat soft meals and as your symptoms improve advance to your regular diet. Then start eating fiber in your diet 3- Take Tylenol PO q6-8hrs prn after meals to alleviate pain. 4- Please f/u with your PCP in 2-3 days for further evaluation and treatment, Or the GI Dr Combs. 5- In highly recommend If symptoms do not improve and severe abdominal pain develops to go immediately to the ER for further evaluation and treatment 6-Your BP is elevated today. please decrease salt in your diet, monitor BP and if it continues to be elevated please f/u with your PCP for further management - Billing Disposition and Condition Condition: STABLE Disposition: Home
== END 2017-11-06 16:47 | disposition home or self-care (01) ==
LOC: UCEAST 14:59
DX: R10.32 Left lower quadrant pain (principal); K57.92 Diverticulitis of intestine, part unspecified, without perforation or abscess without bleeding; Z98.84 Bariatric surgery status; Z88.6 Allergy status to analgesic agent; Z91.040 Latex allergy status; Z91.011 Allergy to milk products; Z88.2 Allergy status to sulfonamides; Z88.8 Allergy status to other drugs, medicaments and biological substances; Z91.018 Allergy to other foods; Z82.49 Family history of ischemic heart disease and other diseases of the circulatory system; Z83.3 Family history of diabetes mellitus; Z83.6 Family history of other diseases of the respiratory system
CPT/HCPCS: 99202; G0463

== ENCOUNTER 2017-11-21 07:07 | Emergency (ER) | payer MEDICARE, MEDICAID ==
[2017-11-21 07:35] VITALS: BP 133/85
--- NOTE | 2017-11-21 08:12 | UC ---
Respiratory Complaint HPI - HPI Summary HPI Summary: Patient urgent care today with 2 complaints. One body pains pain specifically in her hands and her legs. The pain was so intense she was unable to sleep last night. Has used Ultram in the past for this with good effect. Patient states that she's been diagnosed with arthritis in the past has done hand therapy which has helped and is hoping she can go back. Her second complaint is cough and nasal drainage. She is on a 90 day course of Ceftin here by her health center manager she also is just recently been approved to start Xolair and has had her first injection. She is using her albuterol once a day. Patient takes Benadryl when necessary for allergy symptoms does not tolerate the second generation antihistamines at all. Patient does have Q nasal prescribed but hasn 't started it yet this allergy season. - History of Current Complaint Hx Obtained From: Patient Hx Last Menstrual Period: " a year" ?: No Onset/Duration: Gradual Onset Timing: Constant Pain Intensity: 8 Pain Scale Used: 0-10 Numeric Character: Cough: Productive Aggravating Factors: Allergens Alleviating Factors: Bronchodilator Associated Signs And Symptoms: Positive: URI, Nasal Congestion <Nory Adams - Last Filed: 11/21/17 08:28> <Raquel Malagon - Last Filed: 11/21/17 08:48> - History of Current Complaint Chief Complaint: UCRespiratory Stated Complaint: CHEST CONGESTION, ARTHRITIS PAIN Time Seen by Provider: 11/21/17 08:02 - Allergies/Home Medications Allergies/Adverse Reactions: Allergies Allergy/AdvReac Type Severity Reaction Status Date / Time aspirin Allergy Tachycardia Verified 11/21/17 07:26 chocolate flavor Allergy Hives Verified 11/21/17 07:26 fluticasone Allergy Difficulty Verified 11/21/17 07:26 [From Advair Diskus] Breathing Latex, Natural Rubber Allergy Difficulty Verified 11/21/17 07:26 Breathing levofloxacin [From Levaquin] Allergy Headache Verified 11/21/17 07:26 loratadine Allergy Dizziness Verified 11/21/17 07:26 metoclopramide [From Reglan] Allergy Dizziness Verified 11/21/17 07:26 polyethylene glycol 3350 Allergy GI Upset Verified 11/21/17 07:26 [From Miralax] pseudoephedrine Allergy Unknown Verified 11/21/17 07:26 [From Sudafed] Reaction Details salmeterol Allergy Difficulty Verified 11/21/17 07:26 [From Advair Diskus] Breathing Sulfa (Sulfonamide Allergy Unknown Verified 11/21/17 07:26 Antibiotics) Reaction Details famotidine [From Pepcid] AdvReac Vomiting Verified 11/21/17 07:26 DAIRY AdvReac FLARES UP Uncoded 11/21/17 07:26 ASTHMA SPICES AdvReac RASH, N/V Uncoded 11/21/17 07:26 TOMATOES AdvReac N/V, RASH Uncoded 11/21/17 07:26 Home Medications: Home Medications Acetaminophen [Tylenol Arthritis] 650 mg PO BID PRN 11/21/17 [History Confirmed 11/21/17] Omalizumab (NF) [Xolair (NF)] 150 mg SUBCUT MONTHLY 11/21/17 [History Confirmed 11/21/17] PMH/Surg Hx/FS Hx/Imm Hx Previously Healthy: No - IBS, Arthritis Respiratory History: Asthma, Other Other Respiratory History: sleep apnea - Surgical History Surgical History: Yes Surgery Procedure, Year, and Place: 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 Gastric Bypass surgery 2016 Other Surgical History: pt is scheduled to have gastric bypass in the next month - Family History Known Family History: Positive: None, Cardiac Disease, Hypertension, Diabetes, Respiratory Disease, Other - Denies any FMH of bleeding disorders - Social History Occupation: Employed Part-time Lives: With Family Alcohol Use: None Substance Use Type: None Smoking Status (MU): Never Smoked Tobacco Have You Smoked in the Last Year: No When Did the Patient Quit Smoking/Using Tobacco: 1999 - Immunization History Most Recent Influenza Vaccination: none Most Recent Tetanus Shot: 02/2012 Vaccination Up to Date: Yes <Nory Adams - Last Filed: 11/21/17 08:28> Review of Systems Constitutional: Negative Skin: Negative Eyes: Negative ENT: Nasal Discharge, Sinus Congestion Respiratory: Cough Cardiovascular: Negative Gastrointestinal: Negative Genitourinary: Negative Motor: Negative Neurovascular: Negative Musculoskeletal: Arthralgia Neurological: Negative Psychological: Negative Is Patient Immunocompromised?: No All Other Systems Reviewed And Are Negative: Yes <Nory Adams - Last Filed: 11/21/17 08:28> Physical Exam Triage Information Reviewed: Yes Appearance: Well-Appearing, No Pain Distress, Well-Nourished Vital Signs: Initial Vital Signs Temp 97.7 F 11/21/17 07:28 Pulse 83 11/21/17 07:28 Resp 16 11/21/17 07:28 BP 133/85 11/21/17 07:28 Pulse Ox 99 11/21/17 07:28 Vital Signs Reviewed: Yes Eye Exam: Normal Eyes: Positive: Conjunctiva Clear ENT Exam: Normal ENT: Positive: Normal ENT inspection, Hearing grossly normal, Pharynx normal, Nasal congestion, TMs normal, Uvula midline. Negative: Tonsillar swelling, Tonsillar exudate, Trismus, Muffled voice, Hoarse voice, Dental tenderness, Sinus tenderness Dental Exam: Normal Neck exam: Normal Neck: Positive: Supple, Nontender, No Lymphadenopathy Respiratory Exam: Normal Respiratory: Positive: Chest non-tender, Lungs clear, Normal breath sounds, No respiratory distress, No accessory muscle use Cardiovascular Exam: Normal Cardiovascular: Positive: RRR, No Murmur, Pulses Normal, Brisk Capillary Refill Musculoskeletal Exam: Normal Musculoskeletal: Positive: Strength Intact, ROM Intact, No Edema Neurological Exam: Normal Neurological: Positive: Alert, Muscle Tone Normal Psychological Exam: Normal Skin Exam: Normal <Nory Adams - Last Filed: 11/21/17 08:28> Vital Signs: Initial Vital Signs Temp 97.7 F 11/21/17 07:28 Pulse 83 11/21/17 07:28 Resp 16 11/21/17 07:28 BP 133/85 11/21/17 07:28 Pulse Ox 99 11/21/17 07:28 <Raquel Malagon - Last Filed: 11/21/17 08:48> UC Diagnostic Evaluation - Laboratory O2 Sat by Pulse Oximetry: 99 <Nory Adams - Last Filed: 11/21/17 08:28> Respiratory Course/Dx - Course Course Of Treatment: Patient encouraged to use Proventil inhaler her MDI or neb every 4-6 hours while having symptoms. Patient encouraged to start her Q nasal. Continue to use Benadryl when necessary. Rx for Ultram when necessary until she is seen by Dr. Gillette. Patient will follow with Dr. Gillette in [place], health center manager, and recheck when necessary - Differential Dx/Diagnosis Provider Diagnoses: Chronic arthralgia, allergic rhinosinusitis <Nory Adams - Last Filed: 11/21/17 08:28> Discharge - Sign-Out/Discharge Documenting (check all that apply): Discharge/Admit/Transfer - Billing Disposition and Condition Condition: STABLE Disposition: Home <Nory Adams - Last Filed: 11/21/17 08:28> - Billing Disposition and Condition Condition: STABLE Disposition: Home <Raquel Malagon - Last Filed: 11/21/17 08:48> - Discharge Plan Condition: Stable Disposition: HOME Prescriptions: traMADol TAB* [Ultram*] 50 mg PO Q8H PRN #15 tab MDD 3 PRN Reason: pain Patient Education Materials: Rhinosinusitis (ED), Arthritis (ED), How to Use Nasal [place] (ED) Referrals: Hunter Johnson MD [Medical Doctor] - 12/10/17 Frank Gillette Jr, DO [Doctor of Osteopathy] - As Soon As Possible Attestation Statement User Type: Provider - I was available for consult. This patient was seen by the [facility]. The patient was not presented to, seen by, or examined by me. -Shelley <Raquel Malagon - Last Filed: 11/21/17 08:48>
== END 2017-11-21 08:33 | disposition home or self-care (01) ==
LOC: UCCORT 07:07
DX: M25.542 Pain in joints of left hand (principal); M25.541 Pain in joints of right hand; M79.604 Pain in right leg; M79.605 Pain in left leg; J30.9 Allergic rhinitis, unspecified; Z87.891 Personal history of nicotine dependence; Z88.6 Allergy status to analgesic agent; Z88.1 Allergy status to other antibiotic agents; Z88.2 Allergy status to sulfonamides; Z88.8 Allergy status to other drugs, medicaments and biological substances; J45.909 Unspecified asthma, uncomplicated
CPT/HCPCS: 99212; G0463

== ENCOUNTER 2017-12-28 18:48 | Emergency (ER) | payer MEDICARE, MEDICAID ==
[2017-12-28 19:50] VITALS: BP 94/61
--- NOTE | 2017-12-28 20:19 | UC ---
Skin Complaint HPI - HPI Summary HPI Summary: This is scribe Paul Alexander documenting for attending Efrain Diana MD. This patient is a 47 year old F presenting to [facility] with a chief complaint of painful, erythematous rash on her feet and under her breasts since 4 days ago. Symptoms not alleviated by hydrocortisone cream, powder, or oatmeal bath. Patient reports fatigue, pain in her feet, and severe pruritus. PMHx asthma. No PMHx DM. No SHx tobacco use or EtOH use. FHx DM. I, Dr. Diana, personally performed the services described in this documentation as scribed in my presence and it is both accurate and complete. - History of Current Complaint Chief Complaint: UCRash Time Seen by Provider: 12/28/17 20:02 Stated Complaint: RASH Hx Obtained From: Patient Hx Last Menstrual Period: " a year" Onset/Duration: Sudden Onset, Lasting Days - 4 Skin Exposure Onset/Duration: Days Ago - 4 Onset Severity: Mild Current Severity: Mild Pain Intensity: 0 Pain Scale Used: 0-10 Numeric Location: Diffuse - feet, under breast Character: Pruritus, Pain, Redness Alleviating Factor(s): Nothing, Treatment [employer]PERINTENDENT: - ointment, oatmeal bath, powder Associated Signs & Symptoms: Positive: Rash - Allergy/Home Medications Allergies/Adverse Reactions: Allergies Allergy/AdvReac Type Severity Reaction Status Date / Time aspirin Allergy Tachycardia Verified 11/21/17 07:26 chocolate flavor Allergy Hives Verified 12/28/17 19:50 fluticasone Allergy Difficulty Verified 12/28/17 19:50 [From Advair Diskus] Breathing Latex, Natural Rubber Allergy Difficulty Verified 12/28/17 19:50 Breathing levofloxacin [From Levaquin] Allergy Headache Verified 12/28/17 19:50 loratadine Allergy Dizziness Verified 12/28/17 19:50 metoclopramide [From Reglan] Allergy Dizziness Verified 12/28/17 19:50 polyethylene glycol 3350 Allergy GI Upset Verified 12/28/17 19:50 [From Miralax] pseudoephedrine Allergy Unknown Verified 12/28/17 19:50 [From Sudafed] Reaction Details salmeterol Allergy Difficulty Verified 12/28/17 19:50 [From Advair Diskus] Breathing Sulfa (Sulfonamide Allergy Unknown Verified 12/28/17 19:50 Antibiotics) Reaction Details famotidine [From Pepcid] AdvReac Vomiting Verified 12/28/17 19:50 DAIRY AdvReac FLARES UP Uncoded 12/28/17 19:50 ASTHMA SPICES AdvReac RASH, N/V Uncoded 12/28/17 19:50 TOMATOES AdvReac N/V, RASH Uncoded 12/28/17 19:50 Home Medications: Home Medications Beclomethasone 80 MCG MDI(NF) [Qvar 80 MCG MDI(NF)] 1 puff PO BID 12/28/17 [ History Confirmed 12/28/17] Review of Systems Constitutional: Negative Skin: Rash - feet, under left breast Psychological: Anxious All Other Systems Reviewed And Are Negative: Yes PMH/Surg Hx/FS Hx/Imm Hx Endocrine History: Other - no PMHx DM Other Endocrine History: . 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 Gastric Bypass surgery 2016 Other Surgical History: pt is scheduled to have gastric bypass in the next month - Family History Known Family History: Positive: Cardiac Disease, Hypertension, Diabetes, Respiratory Disease, Other - Denies any FMH of bleeding disorders - Social History Alcohol Use: None Substance Use Type: None Smoking Status (MU): Never Smoked Tobacco Have You Smoked in the Last Year: No When Did the Patient Quit Smoking/Using Tobacco: 1999 - Immunization History Most Recent Influenza Vaccination: none Most Recent Tetanus Shot: 02/2012 Vaccination Up to Date: Yes Physical Exam - Summary Physical Exam Summary: General: well-appearing, no pain distress Skin: Erythematous flaking rash with satellite lesions on the plantar surface, spreading up the sides of the foot. Erythematous rash that blanches under the left breast. Head: normal Eyes: EOMI, KEIKO ENT: normal Neck: supple, nontender Respiratory: CTA, breath sounds present Cardiovascular: RRR Abdomen: soft, nontender Bowel: present Musculoskeletal: normal, strength/ROM intact Neurological: sensory/motor intact, A&O x3 Psychological: affect/mood appropriate Triage Information Reviewed: Yes Vital Signs: Initial Vital Signs Temp 96.7 F 12/28/17 19:44 Pulse 92 12/28/17 19:44 Resp 20 12/28/17 19:44 BP 94/61 12/28/17 19:44 Pulse Ox 100 12/28/17 19:44 Vital Signs Reviewed: Yes Course/Dx - Diagnoses Provider Diagnoses: [facility] Discharge - Sign-Out/Discharge Documenting (check all that apply): Patient Departure - Discharge Plan Condition: Stable Disposition: HOME Prescriptions: Clotrimazole 1 applic TOPICAL BID #30 gm Patient Education Materials: Antifungals (On the skin), Athlete's Foot (ED), Skin Yeast Infection (ED) Referrals: Hunter Johnson MD [Primary Care Provider] - Additional Instructions: FOLLOW UP WITH YOUR DOCTOR. GET RECHECKED FOR ANY WORSENING OF YOUR CONDITION OR QUESTIONS OR CONCERNS. - Billing Disposition and Condition Condition: STABLE Disposition: Home
== END 2017-12-28 20:35 | disposition home or self-care (01) ==
LOC: UCEAST 18:48
DX: B35.3 Tinea pedis (principal); B36.0 Pityriasis versicolor; J45.909 Unspecified asthma, uncomplicated; Z88.2 Allergy status to sulfonamides; Z88.8 Allergy status to other drugs, medicaments and biological substances; Z88.6 Allergy status to analgesic agent; Z91.040 Latex allergy status; Z82.49 Family history of ischemic heart disease and other diseases of the circulatory system; Z83.3 Family history of diabetes mellitus; Z83.6 Family history of other diseases of the respiratory system
CPT/HCPCS: 99212; G0463

== ENCOUNTER 2018-01-27 18:05 | Emergency (ER) | payer MEDICARE, MEDICAID ==
--- OUTSIDE RECORDS SUMMARY | 2018-01-27 19:06 | XMS REPORT ---
:1970 External Reference #:[id number] Author Organization [facility] Address [address] [place] [address] Phone [phone] Care Team Providers Name Role Phone Devon Baxter M.D. 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 Primary Care Physician Unavailable Payers Type Date Identification Numbers Payment Provider Subscriber Medicare Primary Policy Number: [id number] Medicare-National Emelyn Noel GVT[employer]Sys PayID: [id number] [address] [place] [address] Medicaid Policy Number: [id number] Medicaid-Adult Emelyn Noel Group Name: 2 1 [address] [facility] PayID: [id number] [place] [address] Workers Compensation Policy Number: [id number] [place] [employer] Emelyn Noel Group Number: [id number] [employer] Group Name: Vidya Vang [address] PayID: [id number] [place] [address] Problems Date Description Provider Status Onset: 01/28/2012 Acute sinusitis Catracho Maria M.D. Active Onset: 02/11/2012 Cough Catracho Maria M.D. Active Onset: 04/28/2012 Allergic rhinitis due to pollen Catracho Maria M.D. Active Onset: 04/28/2012 Extrinsic asthma without status Catracho Maria M.D. Active asthmaticus Onset: 06/09/2012 Asthma without status asthmaticus Catracho Maria M.D. Active Onset: 06/09/2012 Chronic sinusitis Catracho Maria M.D. Active Onset: 01/12/2013 Allergic rhinitis Catracho Maria M.D. Active Onset: 12/28/2013 Congenital bronchiectasis Catracho Maria M.D. Active Onset: 07/26/2014 Chronic pansinusitis Catracho Maria M.D. Active Onset: 12/13/2014 Needs influenza immunization Catracho Maria M.D. Active Onset: 12/13/2014 Body mass index 30+ - obesity Catracho Maria M.D. Active Onset: 12/13/2014 Acute otitis externa Catracho Maria M.D. Active Onset: 06/13/2015 Immunization Catracho Maria M.D. Active Onset: 06/13/2015 Chronic frontoethmoidal sinusitis Catracho Maria M.D. Active Onset: 06/13/2015 Mild persistent asthma Catracho Maria M.D. Active Onset: 08/15/2015 Uncomplicated moderate persistent Catracho Maria M.D. Active asthma Onset: 12/12/2015 Body mass index 40+ - severely Catracho Maria M.D. Active obese Onset: 05/07/2016 Bronchiolectasis Chetan Fraser M.D. Active Onset: 07/09/2016 Uncomplicated moderate persistent Chetan Fraser M.D. Active asthma Onset: 06/16/2017 Acute exacerbation of Chetan Fraser M.D. Active bronchiectasis Onset: 07/14/2017 Immunodeficiency disorder Chetan Fraser M.D. Active Family History Date Family Member(s) Problem(s) Comments General Seasonal Allergies General Asthma General Diabetes General Heart Disease General Hypertension General Food Allergy General Gastroesophageal Reflux Disease (GERD) General Nasal Polyps General Thyroid Disease General sinus disorders Mother Seasonal Allergies Mother Asthma Mother Diabetes Mother Heart Disease Mother Hypertension Mother Thyroid Disease First Son sinus disorders First Son Asthma childhood First Sister Food Allergy First Sister Gastroesophageal Reflux Disease (GERD) First Sister Nasal Polyps Social History Type Date Description Comments Marital Status Legal Status: Domestic Partner Lives With Boyfriend Home Environment Does not use air news specialist Home Environment Has a window air conditioner Home Environment Stairs are present Home Environment Finished Basement Home Environment The basement is damp and dehumidifier used Home Environment Cotton Comforter Home Environment Down Comforter Home Environment Mattress is 4 years old Home Environment Mattress is not encased in an allergy proof case Home Environment Regular Mattress Home Environment Pillows are polyester Home Environment Cotton Mattress Cover Home Environment Pillows are not encased in an allergy proof case Home Environment Uses a dehumidifier Home Environment There are draperies in the home Home Environment The home is baudilio Home Environment The floors are wood Home Environment Uses natural gas heating Home Environment [place] Home Environment Water Source: [facility] Smoke-Free Home is smoke-free 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 ETOH Use Denies alcohol use Smoking Patient has never smoked Recreational Drug Use Denies Drug Use Allergies, Adverse Reactions, Alerts Date Description Reaction Status Severity Comments 01/08/2011 Sudefed palpitations active 02/02/2013 Levaquin severe headaches active 08/15/2015 MiraLax Nausea and Vomiting active 10/21/2016 Aspirin active unknown 10/21/2016 Dulera active lung issue 10/21/2016 Symbicort active lung issue 01/08/2011 Alavert difficulty breathing inactive 06/29/2013 Sulfa Dizzy, faint, nausea inactive Medications Medication Date Status Form Strength Qnty SIG Indications Ordering Provider Incruse Ellipta 12/29/ Active Aerosol 62.5mcg/I 30uni 1 J30.89 Chetan Camejo 2017 nh ts inhalation Fraser, once a day M.DBart Metrogel-Vagina 10/21/ Active Gel 0.75% 210gm 1 J45.40 Mireya l 2018 applicator Brant, full for 5 [employer]-C days Epipen 2-Shen 08/24/ Active Solution 0.3mg/0.3 2unit use as Chetan Orellana Auto-Inject ML s directed Crissy Fraser Xolair 08/06/ Active Solution 150mg 3unit inject Chetan Camejo 2018 Rec s 150mg under Evelio the skin M.DBart every 4 weeks. Include ancillary supplies and sterile water Albuterol 03/10/ Active Nebulizer (2.5mg/3M 1650u 1 neb Z23 Mireya Sulfate 2016 L) 0.083% nits inhalation Uldrich, every 4 [employer] hours as needed Qnasl 03/10/ Active Aerosol 80mcg/Act 8.700 1-2 sprays Z23 Mireya 2017 gm in each Uldrich, nostril [employer]-C daily Qvar 03/30/ Active Aerosol 80mcg/Act 8.7un inhale two J45.30 Mireya 2012 its puffs by Uldrich, mouth twice [employer]-C a day Ventolin HFA 11/03/ Active Aerosol 108(90Bas 18uni inhale two J45.30 Mireya 2012 e) ts puffs by Uldrich, mcg/Act mouth every [employer]C 4 to 6 hours as needed for shortness of breath,coug h or,wheezing Zofran 00/ Active Tablets 4mg as needed Unknown 0000 Benadryl / Active Capsules 25mg 60cap two tablets Unknown 0000 s as needed every 4-6 hrs. Tramadol HCL / Active Tablets 50mg as needed [place], 0000 Crissy Osorio Omeprazole / Active Capsules DR 40mg once a day Unknown 0000 Cefdinir / Active Capsules 300mg 60cap tk 1 c by Chetan Camejo 0000 s mouth twice Fraser, a day Crissy Triamcinolone / Active Cream 0.1% [place] To Unknown Acetonide 0000 Itchy Rash One To Two Times Daily prn Ondansetron / Active Tablets 4mg [place], 0000 Dispers Crissy Osorio Mucinex / Active Tablets ER 600mg Unknown 0000 12HR Medications Administered in Office Medication Date Status Form Strength Qnty SIG Indications Ordering Provider Therapeutic, 01/18/ Administered Injection Mireya Prophylactic Or 2017 Mica uGo [employer] Injection Subq/Im Injection 01/18/ Administered Injection Allergy 2018 Injection Therapeutic, 12/22/ Administered Injection Vy M Prophylactic Or 2018 Mica Koroma M.D. Injection Subq/Im Injection 12/22/ Administered Injection Allergy 2018 Injection Xolair 11/18/ Administered Injection Mireya 2017 Brant [employer] Therapeutic, 11/18/ Administered Injection Nikki Prophylactic Or 2017 Mica Crandall M.D. Injection Subq/Im Injection 11/18/ Administered Injection Allergy 2018 Injection Xolair 10/21/ Administered Injection Mireya 2017 Brant [employer] Therapeutic, 10/21/ Administered Injection Mireya Prophylactic Or 2017 Mica Guo [employer] Injection Subq/Im Injection 10/21/ Administered Injection Allergy 2018 Injection Therapeutic, 09/27/ Administered Injection Nikki Prophylactic Or 2018 Raz Diagnostic M.D. Injection Subq/Im Therapeutic, 09/27/ Administered Injection Mireya Prophylactic Or 2018 Brant, Diagnostic [employer] Injection Subq/Im Injection 09/27/ Administered Injection Allergy 2018 Injection Injection 08/31/ Administered Injection Allergy 2018 Injection Xolair 08/30/ Administered Injection Mireya 2018 Ulich, [employer]-C Therapeutic, 08/30/ Administered Injection Nikki Prophylactic Or 2018 Mica Crandall M.D. Injection Subq/Im Immunizations CPT Code Status Date Vaccine Lot # [id number] Given 03/24/2013 Influenza Vaccine 97006 Given Unknown Pneumococcal Vaccine 68421 Given Unknown Pneumococcal Vaccine Vital Signs Date Vital Result Comment 01/18/2018 Height 65 inches 5'5" Weight 217.00 lb Weight in kg's 98.431 Respiratory Rate 16 /min Heart Rate 80 /min O2 % BldC Oximetry 99 % BP Systolic 123 mmHg BP Diastolic 84 mmHg [facility] Test 11 BMI (Body Mass Index) 36.1 kg/m2 12/29/2017 Height 65 inches 5'5" Weight 215.00 lb Weight in kg's 97.524 Respiratory Rate 18 /min Heart Rate 82 /min O2 % BldC Oximetry 98 % BP Systolic 119 mmHg BP Diastolic 73 mmHg [facility] Control Test 9 BMI (Body Mass Index) 35.8 kg/m2 12/22/2017 Height 65 inches 5'5" Weight 221.00 lb Weight in kg's 100.246 Respiratory Rate 22 /min Heart Rate 68 /min Body Temperature 98.4 F O2 % BldC Oximetry 98 % BP Systolic 103 mmHg BP Diastolic 67 mmHg [facility] Control Test 6 BMI (Body Mass Index) 36.8 kg/m2 11/18/2017 Height 65 inches 5'5" Weight 218.00 lb Weight in kg's 98.885 Respiratory Rate 22 /min Heart Rate 69 /min O2 % BldC Oximetry 99 % BP Systolic 102 mmHg BP Diastolic 80 mmHg [facility] Control Test 10 BMI (Body Mass Index) 36.3 kg/m2 10/21/2017 Height 65 inches 5'5" Weight 215.00 lb Weight in kg's 97.524 Respiratory Rate 22 /min Heart Rate 78 /min O2 % BldC Oximetry 99 % BP Systolic 127 mmHg BP Diastolic 85 mmHg [facility] Control Test 16 BMI (Body Mass Index) 35.8 kg/m2 09/27/2017 Height 65 inches 5'5" Weight 217.00 lb Weight in kg's 98.431 Respiratory Rate 16 /min Heart Rate 85 /min O2 % BldC Oximetry 98 % BP Systolic 123 mmHg BP Diastolic 62 mmHg BMI (Body Mass Index) 36.1 kg/m2 09/22/2017 Height 65 inches 5'5" Weight 215.00 lb Weight in kg's 97.524 Respiratory Rate 22 /min Heart Rate 96 /min O2 % BldC Oximetry 99 % BP Systolic 120 mmHg BP Diastolic 41 mmHg [facility] Control Test 16 BMI (Body Mass Index) 35.8 kg/m2 08/30/2017 Height 65 inches 5'5" Weight 218.00 lb Weight in kg's 98.885 Respiratory Rate 22 /min Heart Rate 71 /min O2 % BldC Oximetry 98 % BP Systolic 124 mmHg BP Diastolic 68 mmHg [facility] Control Test 10 BMI (Body Mass Index) 36.3 kg/m2 07/27/2017 Respiratory Rate 20 /min Heart Rate 82 /min Body Temperature 98.7 F O2 % BldC Oximetry 98 % BP Systolic 112 mmHg BP Diastolic 77 mmHg 07/27/2017 Height 64 inches 5'4" Weight 225.00 lb Weight in kg's 102.060 Respiratory Rate 20 /min Heart Rate 97 /min Body Temperature 98.6 F O2 % BldC Oximetry 98 % BP Systolic 116 mmHg BP Diastolic 75 mmHg [facility] Control Test 8 BMI (Body Mass Index) 38.6 kg/m2 07/14/2017 Height 64 inches 5'4" Weight 220.00 lb Patient stated Weight in kg's 99.792 Respiratory Rate 16 /min Heart Rate 89 /min O2 % BldC Oximetry 98 % BP Systolic 133 mmHg BP Diastolic 88 mmHg [facility] Control Test 12 BMI (Body Mass Index) 37.8 kg/m2 06/16/2017 Height 64 inches 5'4" Weight 220.00 lb Weight in kg's 99.792 Respiratory Rate 20 /min Heart Rate 95 /min O2 % BldC Oximetry 98 % BP Systolic 120 mmHg BP Diastolic 65 mmHg [facility] Control Test 7 BMI (Body Mass Index) 37.8 kg/m2 06/08/2017 Height 64 inches 5'4" Weight 220.00 lb Weight in kg's 99.792 Respiratory Rate 20 /min Heart Rate 93 /min O2 % BldC Oximetry 98 % BP Systolic 116 mmHg BP Diastolic 78 mmHg [facility] Control Test 9 BMI (Body Mass Index) 37.8 kg/m2 06/01/2017 Height 64 inches 5'4" Weight 221.00 lb Weight in kg's 100.246 Respiratory Rate 20 /min Heart Rate 80 /min Body Temperature 98.8 F O2 % BldC Oximetry 98 % BP Systolic 128 mmHg BP Diastolic 73 mmHg [facility] Control Test 7 BMI (Body Mass Index) 37.9 kg/m2 05/20/2017 Height 64 inches 5'4" Weight 221.00 lb Weight in kg's 100.246 Respiratory Rate 18 /min Heart Rate 70 /min O2 % BldC Oximetry 98 % BP Systolic 135 mmHg BP Diastolic 79 mmHg [facility] Control Test 7 BMI (Body Mass Index) 37.9 kg/m2 03/31/2017 Height 64 inches 5'4" Weight 224.00 lb Weight in kg's 101.606 Respiratory Rate 20 /min Heart Rate 86 /min O2 % BldC Oximetry 98 % BP Systolic 113 mmHg BP Diastolic 72 mmHg [facility] Control Test 11 BMI (Body Mass Index) 38.4 kg/m2 03/10/2017 Height 64 inches 5'4" Weight 233.00 lb Patient stated Weight in kg's 105.689 Respiratory Rate 20 /min Heart Rate 72 /min O2 % BldC Oximetry 98 % BP Systolic 128 mmHg BP Diastolic 82 mmHg [facility] Control Test 8 BMI (Body Mass Index) 40.0 kg/m2 01/27/2017 Height 64 inches 5'4" Weight 233.00 lb Weight in kg's 105.689 Respiratory Rate 16 /min Heart Rate 89 /min O2 % BldC Oximetry 98 % BP Systolic 96 mmHg BP Diastolic 67 mmHg [facility] Control Test 12 BMI (Body Mass Index) 40.0 kg/m2 12/16/2016 Height 64 inches 5'4" Weight 246.00 lb Weight in kg's 111.586 Respiratory Rate 16 /min Heart Rate 71 /min O2 % BldC Oximetry 97 % BP Systolic 125 mmHg BP Diastolic 84 mmHg [facility] Control Test 6 BMI (Body Mass Index) 42.2 kg/m2 12/11/2016 Height 64 inches 5'4" Weight 249.00 lb Weight in kg's 112.946 Respiratory Rate 20 /min Heart Rate 73 /min Body Temperature 98.4 F O2 % BldC Oximetry 98 % BP Systolic 128 mmHg BP Diastolic 64 mmHg [facility] Test 7 BMI (Body Mass Index) 42.7 kg/m2 10/21/2016 Height 64 inches 5'4" Weight 268.00 lb Weight in kg's 121.565 Respiratory Rate 24 /min Heart Rate 85 /min O2 % BldC Oximetry 98 % BP Systolic 133 mmHg BP Diastolic 81 mmHg [facility] Control Test 10 BMI (Body Mass Index) 46.0 kg/m2 10/21/2016 Height 64 inches 5'4" 09/24/2016 Height 64 inches 5'4" Weight 264.00 lb Weight in kg's 119.750 Heart Rate 74 /min O2 % BldC Oximetry 98 % BP Systolic 130 mmHg BP Diastolic 85 mmHg [facility] Test 8 BMI (Body Mass Index) 45.3 kg/m2 08/26/2016 Height 64 inches 5'4" Weight 264.00 lb Weight in kg's 119.750 Respiratory Rate 18 /min Heart Rate 89 /min O2 % BldC Oximetry 98 % BP Systolic 122 mmHg BP Diastolic 72 mmHg [facility] Test 8 BMI (Body Mass Index) 45.3 kg/m2 08/19/2016 Height 64 inches 5'4" Weight 263.00 lb Weight in kg's 119.297 Respiratory Rate 24 /min Heart Rate 75 /min O2 % BldC Oximetry 98 % BP Systolic 139 mmHg BP Diastolic 80 mmHg [facility] Test 7 BMI (Body Mass Index) 45.1 kg/m2 07/09/2016 Height 64 inches 5'4" Weight 265.00 lb Weight in kg's 120.204 Respiratory Rate 16 /min Heart Rate 89 /min O2 % BldC Oximetry 98 % BP Systolic 123 mmHg BP Diastolic 92 mmHg BMI (Body Mass Index) 45.5 kg/m2 05/07/2016 Height 64 inches 5'4" Weight 252.00 lb Weight in kg's 114.307 Respiratory Rate 20 /min Heart Rate 83 /min O2 % BldC Oximetry 98 % BP Systolic 119 mmHg BP Diastolic 90 mmHg [facility] Test 13 BMI (Body Mass Index) 43.3 kg/m2 02/20/2016 Height 64 inches 5'4" Weight 251.00 lb Weight in kg's 113.854 Respiratory Rate 16 /min Heart Rate 67 /min O2 % BldC Oximetry 99 % BP Systolic 138 mmHg right arm re-take BP Diastolic 82 mmHg right arm re-take [facility] Test 11 BMI (Body Mass Index) 43.1 kg/m2 02/20/2016 Height 64 inches 5'4" Weight 251.00 lb Weight in kg's 113.854 Respiratory Rate 16 /min Heart Rate 67 /min O2 % BldC Oximetry 99 % BP Systolic 149 mmHg left wrist BP Diastolic 79 mmHg left wrist [facility] Control Test 11 BMI (Body Mass Index) 43.1 kg/m2 12/12/2015 Height 64 inches 5'4" Weight 242.00 lb Weight in kg's 109.771 Respiratory Rate 18 /min Heart Rate 84 /min O2 % BldC Oximetry 98 % BP Systolic 124 mmHg BP Diastolic 82 mmHg [facility] Test 9 BMI (Body Mass Index) 41.5 kg/m2 08/15/2015 Height 65 inches 5'5" Weight 220.00 lb Weight in kg's 99.792 Respiratory Rate 18 /min Heart Rate 92 /min O2 % BldC Oximetry 98 % BP Systolic 114 mmHg BP Diastolic 81 mmHg [facility] Test 7 BMI (Body Mass Index) 36.6 kg/m2 06/13/2015 Height 65 inches 5'5" Weight 235.00 lb Weight in kg's 106.596 Respiratory Rate 18 /min Heart Rate 82 /min O2 % BldC Oximetry 98 % BP Systolic 126 mmHg BP Diastolic 86 mmHg BMI (Body Mass Index) 39.1 kg/m2 12/13/2014 Height 65 inches 5'5" Weight 230.00 lb Weight in kg's 104.328 Respiratory Rate 18 /min Heart Rate 78 /min O2 % BldC Oximetry 98 % BP Systolic 116 mmHg BP Diastolic 77 mmHg [facility] Control Test 9 BMI (Body Mass Index) 38.3 kg/m2 07/26/2014 Height 65 inches 5'5" Weight 238.00 lb Weight in kg's 107.957 Respiratory Rate 20 /min Heart Rate 86 /min O2 % BldC Oximetry 98 % BP Systolic 142 mmHg BP Diastolic 90 mmHg [facility] Control Test 7 BMI (Body Mass Index) 39.6 kg/m2 12/28/2013 Height 65 inches 5'5" Weight 229.00 lb Weight in kg's 103.874 Respiratory Rate 22 /min Heart Rate 77 /min O2 % BldC Oximetry 99 % BP Systolic 134 mmHg BP Diastolic 80 mmHg [facility] Control Test 10 BMI (Body Mass Index) 38.1 kg/m2 09/19/2013 Height 65 inches 5'5" Weight 229.00 lb Weight in kg's 103.874 Respiratory Rate 22 /min Heart Rate 94 /min O2 % BldC Oximetry 98 % BP Systolic 120 mmHg BP Diastolic 78 mmHg [facility] Control Test 8 BMI (Body Mass Index) 38.1 kg/m2 06/29/2013 Height 64 inches 5'4" Weight 219.00 lb Weight in kg's 99.338 Respiratory Rate 18 /min Heart Rate 87 /min O2 % BldC Oximetry 97 % BP Systolic 118 mmHg BP Diastolic 88 mmHg [facility] Control Test 5 BMI (Body Mass Index) 37.6 kg/m2 06/15/2013 Height 64 inches 5'4" Weight 221.00 lb Weight in kg's 100.246 Heart Rate 97 /min O2 % BldC Oximetry 98 % BMI (Body Mass Index) 37.9 kg/m2 06/06/2013 Height 64 inches 5'4" Weight 221.00 lb Weight in kg's 100.246 Respiratory Rate 18 /min Heart Rate 80 /min O2 % BldC Oximetry 98 % Ast[facility] Control Test 8 BMI (Body Mass Index) 37.9 kg/m2 05/11/2013 Height 64 inches 5'4" Weight 221.00 lb Weight in kg's 100.246 Respiratory Rate 18 /min Heart Rate 88 /min O2 % BldC Oximetry 98 % BMI (Body Mass Index) 37.9 kg/m2 04/27/2013 Height 64.4 inches 5'4.40" Weight 221.00 lb Weight in kg's 100.246 Respiratory Rate 20 /min Heart Rate 94 /min O2 % BldC Oximetry 96 % BP Systolic 130 mmHg BP Diastolic 78 mmHg [facility] Control Test 7 BMI (Body Mass Index) 37.5 kg/m2 03/30/2013 Height 64.4 inches 5'4.40" Weight 221.00 lb Weight in kg's 100.246 Respiratory Rate 20 /min Heart Rate 90 /min O2 % BldC Oximetry 98 % BMI (Body Mass Index) 37.5 kg/m2 02/23/2013 Height 64.5 inches 5'4.50" Weight 221.00 lb Weight in kg's 100.246 Respiratory Rate 18 /min Heart Rate 99 /min O2 % BldC Oximetry 98 % BMI (Body Mass Index) 37.3 kg/m2 02/02/2013 Height 65 inches 5'5" Weight 221.00 lb Weight in kg's 100.246 Respiratory Rate 18 /min Heart Rate 84 /min O2 % BldC Oximetry 99 % BMI (Body Mass Index) 36.8 kg/m2 01/12/2013 Height 64 inches 5'4" Weight 223.00 lb Weight in kg's 101.153 Respiratory Rate 18 /min Heart Rate 84 /min O2 % BldC Oximetry 99 % BMI (Body Mass Index) 38.3 kg/m2 12/01/2012 Height 64 inches 5'4" Weight 225.00 lb Weight in kg's 102.060 Respiratory Rate 28 /min Heart Rate 96 /min O2 % BldC Oximetry 98 % BP Systolic 142 mmHg BP Diastolic 84 mmHg BMI (Body Mass Index) 38.6 kg/m2 11/03/2012 Height 64 inches 5'4" Weight 225.00 lb Weight in kg's 102.060 Respiratory Rate 20 /min Heart Rate 85 /min O2 % BldC Oximetry 98 % BP Systolic 126 mmHg BP Diastolic 80 mmHg BMI (Body Mass Index) 38.6 kg/m2 09/15/2012 Heart Rate 85 /min O2 % BldC Oximetry 98 % BP Systolic 128 mmHg BP Diastolic 72 mmHg 08/11/2012 Height 64 inches 5'4" Weight 230.00 lb Weight in kg's 104.328 Heart Rate 79 /min O2 % BldC Oximetry 99 % BMI (Body Mass Index) 39.5 kg/m2 05/31/2012 Respiratory Rate 16 /min Heart Rate 92 /min 03/31/2012 Respiratory Rate 18 /min Heart Rate 88 /min 03/31/2012 Respiratory Rate 18 /min Heart Rate 88 /min Results Test Date Test Result H/L Range Note CBC Auto Diff 11/03/2017 White Blood Count 8.6 10^3/uL 3.5-10.8 Red Blood Count 4.47 10^6/uL 4.00-5.40 Hemoglobin 12.7 g/dL 12.0-16.0 Hematocrit 39 % 35-47 Mean Corpuscular Volume 88 fL 80-97 Mean Corpuscular Hemoglobin 28 pg 27-31 Mean Corpuscular HGB Conc 32 g/dL 31-36 Red Cell Distribution Width 14 % 10.5-15 Platelet Count 366 10^3/uL 150-450 Mean Platelet Volume 9.5 um3 7.4-10.4 Abs Neutrophils 5.2 10^3/uL 1.5-7.7 Abs Lymphocytes 2.7 10^3/uL 1.0-4.8 Abs Monocytes 0.5 10^3/uL 0-0.8 Abs Eosinophils 0.1 10^3/uL 0-0.6 Abs Basophils 0.1 10^3/uL 0-0.2 Abs Nucleated RBC 0 10^3/uL Granulocyte % 60.6 % 38-83 Lymphocyte % 31.3 % 25-47 Monocyte % 6.1 % 0-7 Eosinophil % 1.1 % 0-6 Basophil % 0.9 % 0-2 Nucleated Red Blood Cells % 0.1 CBC Auto Diff 07/19/2017 White Blood Count 11.4 10^3/uL High 3.5-10.8 Red Blood Count 4.48 10^6/uL 4.0-5.4 Hemoglobin 13.1 g/dL 12.0-16.0 Hematocrit 40 % 35-47 Mean Corpuscular Volume 89 fL 80-97 Mean Corpuscular Hemoglobin 29 pg 27-31 Mean Corpuscular HGB Conc 33 g/dL 31-36 Red Cell Distribution Width 14 % 10.5-15 Platelet Count 322 10^3/uL 150-450 Mean Platelet Volume 9 um3 7.4-10.4 Abs Neutrophils 6.5 10^3/uL 1.5-7.7 Abs Lymphocytes 4.0 10^3/uL 1.0-4.8 Abs Monocytes 0.7 10^3/uL 0-0.8 Abs Eosinophils 0.1 10^3/uL 0-0.6 Abs Basophils 0.1 10^3/uL 0-0.2 Abs Nucleated RBC 0 10^3/uL Granulocyte % 56.6 % 38-83 Lymphocyte % 35.2 % 25-47 Monocyte % 6.0 % 0-7 Eosinophil % 1.3 % 0-6 Basophil % 0.9 % 0-2 Nucleated Red Blood Cells % 0 HIV 1/2 AB Evaluation 07/19/2017 HIV 1 2 Antibody Nonreactive Nonreactive 1 Laboratory test finding 07/19/2017 Miscellaneous Test See Comment 2 Immunoglobulins Serum 07/19/2017 Immunoglobulin G 799 mg/dL 767 - 1590 3 Quant Immunoglobulin M 94 mg/dL 37 - 286 Immunoglobulin A 163 mg/dL 61 - 356 Diptheria Igg Titer 07/19/2017 Diphtheria IgG Antibody Positive 4 Diphtheria IgG Value 0.44 IU/mL 5 Tetanus Toxoid Igg Antibody,S 07/19/2017 Tetanus Toxoid IgG Antibody Positive 6 Tetanus Toxoid IgG Value 0.92 IU/mL 7 Laboratory test finding 07/19/2017 Immunoglobulin E (Ige) 11.6 kU/L <= 214 8 T&B Cell Lymphocyte 07/19/2017 Absolute CD45 Count 3.58 thou/mcL 0.82- 2.84 Evaluation Percent CD3 Cells (T Cells) 84 % 58-86 Percent CD19 Cells (B Cells) 13 % 6-24 % CD16+CD56 Cells (NK Cells) 2 % 4-28 Percent CD4 Cell (Blackwell Cell) 58 % 32-64 Percent CD8 Cells (Supp Cell) 26 % 13-40 Absolute CD3 Count (T Cells) 3001 cells/L 550-2202 Absolute CD19 Count (B Cells) 474 cells/L 70-409 Absolute CD16+CD56 Count (NK) 64 cells/L 59-513 Absolute CD4 Count (Help Cell) 2073 cells/L 365-1437 Absolute CD8 Count (Supp Cell) 942 cells/L 145-846 T-Blackwell/Suppressor Ratio 2.2 >=0.9 T B Cell Comment See Comment 9 S.Pneumoniae Igg AB 23 10/20/2016 S. pneumoniae Type 1 IgG 17.0 g/mL >= 2.3 Serotyp AB S. pneumoniae Type 2 IgG AB 6.4 g/mL >=1.0 S. pneumoniae Type 3 IgG AB 45.7 g/mL >=1.8 S. pneumoniae Type 4 IgG AB 67.1 g/mL >=0.6 S. pneumoniae Type 5 IgG AB 49.8 g/mL >=10.7 S. pneumoniae Type 8 IgG AB 21.7 g/mL >=2.9 S. pneumoniae Type 9N IgG AB 29.3 g/mL >=9.2 S. pneumoniae Type 12F IgG AB 4.3 g/mL >=0.6 S. pneumoniae Type 14 IgG AB 78.7 g/mL >=7.0 S. pneumoniae Type 17F IgG AB 62.2 g/mL >=7.8 S. pneumoniae Type 19F IgG AB 49.6 g/mL >=15.0 S. pneumoniae Type 20 IgG AB 19.8 g/mL >=1.3 S. pneumoniae Type 22F IgG AB 57.9 g/mL >=7.2 S. pneumoniae Type 23F IgG AB 108.1 g/mL >=8.0 S. pneumoniae Type 6B IgG AB 164.1 g/mL >=4.7 S. pneumoniae Type 10A IgG AB 60.0 g/mL >=2.9 S. pneumoniae Type 11A IgG AB 9.1 g/mL >=2.4 S. pneumoniae Type 7F IgG AB 57.3 g/mL >=3.2 S. pneumoniae Type 15B IgG AB 13.1 g/mL >=3.3 S. pneumoniae Type 18C IgG AB 16.0 g/mL >=3.3 S. pneumoniae Type 19A IgG AB 76.7 g/mL >=17.1 S. pneumoniae Type 9V IgG AB 53.4 g/mL >=2.6 S. pneumoniae Type 33F IgG AB 15.1 g/mL >=1.7 10 Laboratory test finding 10/20/2016 Immunoglobulin G (Igg) 1170 mg/dL 767 - 1590 11 Immunoglobulin M (Igm) 140 mg/dL 37 - 286 12 Immunoglobulin A (Iga) 186 mg/dL 61 - 356 13 Immunoglobulin E (Ige) 34.1 kU/L <=214 14 CBC W/Auto Diff Cancer 10/20/2016 White Blood Count 11.3 10^3/uL High 3.5- 10.8 Red Blood Count 4.72 10^6/uL 4.0-5.4 Hemoglobin 13.3 g/dL 12.0-16.0 Hematocrit 41 % 35-47 Mean Corpuscular Volume 87 fL 80-97 Mean Corpuscular Hemoglobin 28 pg 27-31 Mean Corpuscular HGB Conc 33 g/dL 31-36 Red Cell Distribution Width 14 % 10.5-15 Platelet Count 382 10^3/uL 150-450 Mean Platelet Volume 9 um3 7.4-10.4 Abs Neutrophils 6.9 10^3/uL 1.5-7.7 Abs Lymphocytes 3.5 10^3/uL 1.0-4.8 Abs Monocytes 0.6 10^3/uL 0-0.8 Abs Eosinophils 0.3 10^3/uL 0-0.6 Abs Basophils 0.1 10^3/uL 0-0.2 Abs Nucleated RBC 0.01 10^3/uL Granulocyte % 60.5 % 38-83 Lymphocyte % 30.6 % 25-47 Monocyte % 5.1 % 1-9 Eosinophil % 3.0 % 0-6 Basophil % 0.8 % 0-2 Nucleated Red Blood Cells % 0.1 Laboratory test finding 08/27/2015 Immunoglobulin E (Ige) 58.4 kU/L <= 214 15 1 It is recognized that currently available assays for the detection of antibodies to HIV-1 and/or HIV-2 may not detect all infected individuals. HIV antibodies may be undetectable in some stages of the infection and in some clinical conditions. The performance of this assay has not been established for populations of infants or children. Assayed by Chemiluminescence Microparticle Immunoassay on the Siemens Advia Pearl's Premiumaur CP. Values obtained with different methods or kits cannot be used interchangeably.The diagnostic specificity of the AD[employer]IA Centaur 1/O/2 Enhanced assay in the low risk population was 99.90% (6052/6058) with a 95% confidence interval of 99.78 to 99.96%. 2 Test Result Flag Unit RefValue Pneumococcal Ab Panel (12 Serotype) Pneumo Ab Type 1 6.2 ug/mL >1.3 Pneumo Ab Type 3 2.5 ug/mL >1.3 Pneumo Ab Type 4 34.9 ug/mL >1.3 Pneumo Ab Type 8 0.5 L ug/mL >1.3 Pneumo Ab Type 9 (9N) 6.8 ug/mL >1.3 Pneumo Ab Type 12 (12F) 0.3 L ug/mL >1.3 Pneumo Ab Type 14 19.8 ug/mL >1.3 Pneumo Ab Type 19 (19F) >38.3 ug/mL >1.3 Pneumo Ab Type 23 (23F) >39.7 ug/mL >1.3 Pneumo Ab Type 26 (6B) >84.8 ug/mL >1.3 Pneumo Ab Type 51 (7F) 7.1 ug/mL >1.3 Pneumo Ab Type 56 (18C) 13.6 ug/mL >1.3 *This test was developed and its performance characteristics determined by [employer]. It has not been cleared or approved by the U.S. Food and Drug Administration. Test Performed by: [employer], Interface [address] [place] [address] 3 Test Performed by: [facility] [place] [id number] REFERENCE VALUE Vaccinated: Positive (>=0.01 IU/mL) Unvaccinated: Negative (< 0.01 IU/mL) 5 Test Performed by: [facility] [place] [address] 6 REFERENCE VALUE Vaccinated: Positive (>=0.01 IU/mL) Unvaccinated: Negative (< 0.01 IU/mL) 7 ADDITIONAL INFORMATION This test was developed and its performance characteristics determined by [facility] in a manner consistent with CLIA requirements. This test has not been cleared or approved by the U.S. Food and Drug Administration. Test Performed by: [facility] [place] [address] 8 Test Performed by: [facility] [place] [address] 9 RESULT: Reviewed by: Paz Rutledge M.D., D. , D(JUANJO) ADDITIONAL INFORMATION Reference values implemented September 13, 2012. This test was developed using an analyte specific reagent. Its performance characteristics were determined by [facility] in a manner consistent with CLIA requirements. This test has not been cleared or approved by the U.S. Food and Drug Administration. Test Performed by: [address] [address] 10 Either of the two following conditions would be consistent with a normal response to Streptococcus pneumoniae vaccination: Antibody concentrations greater than or equal to the reference value for at least 50% of serotypes in either a pre- or post-vaccination sample. Antibody concentrations increased by 2-fold or greater for at least 50% of serotypes when comparing the pre- to the post-vaccination results. Optimal cut-offs (reference values) were derived by measuring serotype-specific IgG antibody levels in an adult cohort of 100 healthy individuals (previously unvaccinated) before and after pneumococcal vaccination and identifying the antibody level for each serotype that included the largest number of individuals with a negative response (below cut-off) pre-vaccination and a positive response (above cut-off) post-vaccination. ADDITIONAL INFORMATION All 23 serotypes assessed by this assay are included in the Pneumovax 23 vaccine. IgG antibody concentrations following Pneumovax 23 administration are a reflection of an individual's humoral immune response to polysaccharide antigens. Serotypes 1, 3, 4, 5, 6A (6), 14, 19F (19), 23F (23), 6B (26), 7F (51), 18C (56), 19A (57) and 9V (68) are included in the Prevnar-13 conjugate vaccine. Antibody concentrations following Prevnar-13 administration are a reflection of an individual's response to protein-conjugated antigens. Serotypes 2, 8, 9N (9), 12F (12), 17F (17), 20, 22F (22), 10A (34), 11A (43), 15B (54) and 33F (70) are present only in the Pneumovax 23 vaccine and not in Prevnar-13. Responses to these 11 serotypes are a reflection of an individual's response to polysaccharide antigens. Serotype 6A is only present in Prevnar-13. This test was developed and its performance characteristics determined by [facility] in a manner consistent with CLIA requirements. This test has not been cleared or approved by the U.S. Food and Drug Administration. Test Performed by: [facility] [address] [place] [address] 11 Test Performed by: [place] [address] [place] [address] 12 Test Performed by: [address] [address] 13 Test Performed by: [address] [address] 14 Test Performed by: [address] [address] 15 Test Performed by: [address] [address] [employer]er: Efrain Wilkinson II, M.D., Ph.D. Procedures Date CPT Code Description Status 01/18/2018 63953 Therapeutic, Prophylactic Or Diagnostic Injection Completed Subq/Im 01/18/2018 33465 Injection Completed 12/29/2017 59463 Pre PFT Completed 12/22/2017 37811 Therapeutic, Prophylactic Or Diagnostic Injection Completed Subq/Im 12/22/2017 53180 Injection Completed 11/18/2017 36728 Xolair Completed 11/18/2017 01020 Therapeutic, Prophylactic Or Diagnostic Injection Completed Subq/Im 11/18/2017 44733 Injection Completed 10/21/2017 08290 Xolair Completed 10/21/2017 98220 Therapeutic, Prophylactic Or Diagnostic Injection Completed Subq/Im 10/21/2017 88575 Injection Completed 10/21/2017 67899 Pre PFT Completed 10/21/2017 33293 Pre PFT Completed 09/27/2017 73105 Injection Completed 09/27/2017 33823 Therapeutic, Prophylactic Or Diagnostic Injection Completed Subq/Im 09/27/2017 82639 Therapeutic, Prophylactic Or Diagnostic Injection Completed Subq/Im 09/22/2017 95270 Pre PFT Completed 08/31/2017 81385 Injection Completed 08/30/2017 27173 Xolair Completed 08/30/2017 90759 Therapeutic, Prophylactic Or Diagnostic Injection Completed Subq/Im 08/30/2017 72029 Pre PFT Completed 07/27/2017 87324 Ippb Completed 07/27/2017 26244 Ippb Completed 06/08/2017 19065 Ippb Completed 06/01/2017 50460 Ippb Completed 06/01/2017 13577 Ippb Completed 06/01/2017 78069 Pre PFT Completed 06/01/2017 62507 Pre PFT Completed 03/10/2017 12416 Pre PFT Completed 03/10/2017 29476 Pre PFT Completed 12/11/2016 79192 Ippb Completed 12/11/2016 75849 Ippb Completed 09/24/2016 46994 Pre PFT Completed 05/07/2016 21377 Pre PFT Completed 12/12/2015 35492 Pre PFT Completed 08/15/2015 65610 Pre PFT Completed 06/13/2015 82973 Pre PFT Completed 09/19/2013 38734 Pre PFT Completed 05/11/2013 53115 Oxygen Level - Pulse Oximiter Completed 04/27/2013 59192 Oxygen Level - Pulse Oximiter Completed 02/23/2013 64533 Oxygen Level - Pulse Oximiter Completed 02/23/2013 33020 Pulmonary Function Test Completed 02/02/2013 19369 Oxygen Level - Pulse Oximiter Completed 01/12/2013 33645 Oxygen Level - Pulse Oximiter Completed 11/03/2012 42167 Oxygen Level - Pulse Oximiter Completed 05/05/2012 91779 Oxygen Level - Pulse Oximiter Completed 05/05/2012 11757 Pulmonary Function Test Completed 07/30/2011 00104 Extract 1-10 Completed 07/21/2011 83407 Oxygen Level - Pulse Oximiter Completed 07/02/2011 50450 Skin Tests Id Completed 06/16/2011 10937 Oxygen Level - Pulse Oximiter Completed 06/16/2011 14448 Ippb Completed 06/09/2011 79110 Oxygen Level - Pulse Oximiter Completed 06/09/2011 28154 Oxygen Level - Pulse Oximiter Completed 06/09/2011 66232 Ippb Completed 06/04/2011 42583 Skin Test Scratch # Of Units ____ Completed 05/28/2011 34903 Pulmonary Function Test Completed Encounters Type Date Location Provider CPT E/M Dx Office Visit 09/22/2017 4:00p [place] [facility] Chetan Fraser M.D. 18792 J30.89 J45.40 J32.9 Office Visit 07/27/2017 3:40p [place] [facility] CRYSTAL Conrad 27693 J45.40 J32.9 J30.89 Office Visit 07/14/2017 11:40a [place] [facility] Chetan Fraser M.D. 77093 J30.89 J45.40 J32.9 D84.9 Z23 Office Visit 06/16/2017 10:40a [place] [facility] Chetan Fraser M.D. 74552 J30.89 J45.40 J32.9 J47.0 Z23 Office Visit 06/08/2017 11:20a [facility] Mireya Brant [facility] [address] Z23 J45.40 J30.89 Office Visit 06/01/2017 1:40p [place] [facility] Barbara Shivam [facility] [address] Z23 J47.9 J01.90 J45.40 Office Visit 05/20/2017 4:20p [facility] Chetan Fraser M.D. 20211 J45.40 J47.9 Z23 Office Visit 03/31/2017 11:40a [place] [facility] Chetan Fraser M.D. 66766 J30.89 J45.40 J47.9 Z23 Office Visit 03/10/2017 2:40p [facility] Mireya Guo [facility] [address] Z23 J30.89 J32.9 J45.40 J47.9 Office Visit 01/27/2017 11:40a [facility] Chetan Fraser M.D. 09954 J30.89 J47.9 J32.9 Z23 Office Visit 12/16/2016 2:20p [place] [facility] Chetan Fraser M.D. 64085 J30.89 J32.9 J47.9 J45.40 Z23 Office Visit 12/11/2016 2:00p [place] Mireya Guo [facility] [address] D84.9 J30.89 J45.40 J47.9 Z23 Office Visit 10/21/2016 11:20a [facility] Chetan Fraser M.D. 38094 J47.9 J45.40 D84.9 J30.89 Z23 Z68.42 Office Visit 09/24/2016 8:40a [place] Chetan Fraser M.D. 70115 J01.90 J45.40 D84.9 J01.90 J30.89 J30.89 D84.9 Z23 Z68.42 Office Visit 08/26/2016 11:40a [facility] Chetan Fraser M.D. 34329 J01.90 J30.89 J45.40 J47.9 Z23 Z68.42 Office Visit 08/19/2016 11:20a [facility] Chetan Fraser M.D. 87772 J01.90 J30.89 Z68.42 Z23 Office Visit 07/09/2016 11:40a [place] Chetan Fraser M.D. 79317 J30.89 J45.40 J47.9 Z68.42 Office Visit 05/07/2016 3:40p [place] Chetan Fraser M.D. 62806 J45.40 J30.89 J47.9 Z68.41 Office Visit 02/20/2016 3:00p [facility] Catracho Maria M.D. 98073 J30.1 J45.30 Z23 Z68.43 Office Visit 12/12/2015 11:20a [facility] Catracho Maria M.D. 32923 J30.1 J45.30 J32.8 Z23 Z68.41 Office Visit 08/15/2015 3:20p [facility] Catracho Maria M.D. 95089 J45.40 Z68.36 Z23 J45.40 J30.1 Office Visit 06/13/2015 11:20a [facility] Catracho Maria M.D. 01055 Z68.39 Z23 J32.8 J45.30 Office Visit 12/13/2014 8:40a [facility] Catracho Maria M.D. 21515 786.2 493.00 473.8 V85.38 V04.81 380.22 Office Visit 07/26/2014 11:00a [facility] Catracho Maria M.D. 34334 786.2 493.00 748.61 473.8 Office Visit 12/28/2013 11:40a [facility] Catracho Maria M.D. 49673 786.2 748.61 477.8 Office Visit 09/19/2013 11:00a [facility] [place] [facility] Chetan Fraser M.D. 77330 493.00 110.5 461.0 564.00 Office Visit 06/29/2013 3:00p [place] [facility] GONZALO Corrigan 44004 493.00 477.8 477.0 473.9 Office Visit 06/15/2013 3:20p [place] [facility] Catracho Maria M.D. 22287 493.00 477.8 473.9 Office Visit 06/06/2013 11:00a [place] [facility] GONZALO Corrigan 13252 493.00 477.8 477.0 Office Visit 05/11/2013 10:00a [facility] [place] [facility] GONZALO Corrigan 18347 493.00 477.8 477.0 Office Visit 04/27/2013 1:40p [facility] [place] [facility] GONZALO Corrigan 63219 493.00 477.8 477.0 Office Visit 03/30/2013 10:20a [facility] [place] [facility] GONZALO Corrigan 95515 493.00 477.8 477.0 Office Visit 02/02/2013 11:00a [facility] [place] [facility] Catracho Maria M.D. 45654 786.2 477.8 493.00 Office Visit 01/12/2013 11:00a [facility] [place] [facility] Catracho Maria M.D. 50761 786.2 477.8 Office Visit 12/01/2012 4:00p [place] [facility] CRYSTAL Hays 77180 493.00 477.0 477.8 Office Visit 11/03/2012 4:20p [facility] Catracho Maria M.D. 14798 493.00 Office Visit 09/15/2012 9:40a [facility] [place] [facility] CRYSTAL Hays 47388 493.00 473.9 Office Visit 08/11/2012 11:20a [facility] [place] [facility] Catracho Maria M.D. 33693 493.00 Office Visit 08/04/2012 8:40a [facility] [place] [facility] Catracho Maria M.D. 31377 461.9 Office Visit 06/09/2012 3:20p [facility] [place] [facility] Catracho Maria M.D. 73554 493.90 473.9 Office Visit 05/31/2012 9:20a [place] [facility] Joy Harp [facility] 55735 465.8 493.00 Office Visit 04/28/2012 8:30a [facility] [place] [facility] Catracho Maria M.D. 50780 477.0 493.00 Office Visit 03/31/2012 2:00p [place] [facility] NORBERT Hays 27684 493.00 708.1 477.0 Office Visit 02/11/2012 8:40a [facility] [place] [facility] Catracho Maria M.D. 66180 786.2 Office Visit 01/28/2012 11:00a [facility] [place] [facility] Catracho Maria M.D. 45061 461.9 Office Visit 01/14/2012 3:40p [facility] [place] [facility] Catracho Maria M.D. 54824 786.2 493.90 477.0 477.8 Office Visit 05/28/2011 11:40a [facility] [place] [facility] Catracho Maria M.D. 77840 786.2 493.90 477.0 477.8 Office Visit 03/05/2011 8:40a [facility] [place] [facility] Bernabe Aviles M.D. 04167 786.2 493.90 477.0 477.8 Office Visit 01/29/2011 11:00a [facility] [place] [facility] Catracho Maria M.D. 14213 786.2 493.90 477.0 477.8 Office Visit 01/06/2011 2:20p [facility] [place] [facility] Nikki Crandall M.D. 59064 786.2 493.90 477.0 477.8 Plan of Care Future Appointment(s):02/23/2018 11:00 am - Chetan Fraser M.D. at [facility]01/18/2018 - Mireya Guo, [employer] SEWER-CJ30.89 Other allergic qtchijtjJ05.40 Moderate persistent asthma, uncomplicatedRecommendations:Continue all medications as prescribed.Refrain from wearing perfumes/scented colognes while visitingour office. Discuss another infectious disease community resource consultant and Xolair possibly every 2 weeks. Continue the Qvar 80 mcg 2 puffs twice a day Continue the Qnasl 2 sprays twice a day Use the Albuterol via nebulizer every 4-6 hours for cough, shortness of breath, chest congestion or wheezing. Monitor Albuterol use. If using more than 2x/week, please call the office as your asthma medications may need to be adjusted. Xolair (Omalizumab) is a recombinant humanized monoclonal antibody that inhibits the binding of circulating IgE to the high affinity IgE receptor on the surface of mast cells and basophils. Reduction in surface-bound IgE on the IgE receptor expressing cells limits the release of mediators in the allergic response. Xolair is indicated for patients with moderate-severe persistent asthma who have a positive skin test result to a perennial aeroallergen and whose symptoms are inadequately controlled with inhaled corticosteroids.
--- OUTSIDE RECORDS SUMMARY | 2018-01-27 19:06 | XMS REPORT ---
:1970 External Reference #:[id number] Author Organization [facility] Address [address] [place] [address] Phone [phone] Care Team Providers Name Role Phone Devon Baxter M.D. Care Team Information Application Spec Unavailable Hunter Johnson M.D. Primary Care Physician Unavailable Payers Type Date Identification Numbers Payment Provider Subscriber Medicare Primary Policy Number: [id number] Medicare-National Emelyn Noel GVT.Sys PayID: [id number] [address] [place] [address] Medicaid Policy Number: [id number] Medicaid-Adult Emelyn Noel Group Name: 2 1 [address] [facility] PayID: [id number] [place] [address] Workers Compensation Policy Number: [id number] [employer] Emelyn Noel Group Number: [id number] Travel[employer] Group Name: Vidya Vang [address] PayID: [id number] [place] [address] Problems Date Description Provider Status Onset: 01/28/2012 [...] Boyfriend Home Environment 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 Home Environment Has a window air conditioner [...] in the city Home Environment Water Source: [facility] Smoke-Free Home is smoke-free Pets None 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 ETOH Use Denies alcohol use Smoking [...] Form Strength Qnty SIG Indications Ordering Provider Prednisone 01/18/ Active Tablets 5mg 110ta 40 mg for 3 Mireya 2017 bs days35 mg Uldrich, for 3 SENIOR STAFF PSYCHOLOGIST-C days,30 mg for 3days,25mg for3 days,20mg for 3 days 15mg for 3 days,10 [id number] 5mg for3 days Incruse Ellipta 12/29/ Active Aerosol 62.5mcg/I 30uni 1 J30.89 Chetan Camejo 2017 nh ts inhalation Evelio, once a day M.DBart Metrogel-Vagina 10/21/ Active Gel 0.75% 210gm 1 J45.40 Mireya l 2017 applicator Uldrich, full for 5 SENIOR STAFF PSYCHOLOGIST-C days Epipen 2-Shen 08/24/ Active Solution 0.3mg/0.3 2unit use as Chetan Orellana Auto-Inject ML s directed Crissy Fraser Xolair 08/06/ Active Solution 150mg 3unit inject Chetan Camejo 2017 Rec s 150mg under Evelio, the skin M.DBart every 4 weeks. Include ancillary supplies and sterile water Albuterol 03/10/ Active Nebulizer (2.5mg/3M 1650u 1 neb Z23 Mireya Sulfate 2017 L) 0.083% nits inhalation Uldrich, every 4 SENIOR STAFF PSYCHOLOGIST-C hours as needed Qnasl 03/10/ Active Aerosol 80mcg/Act 8.700 1-2 sprays Z23 Mireya 2017 gm in each Uldrich, nostril SENIOR STAFF PSYCHOLOGIST-C daily Qvar 03/30/ Active Aerosol 80mcg/Act 8.7un inhale two J45.30 Mireya 2012 its puffs by Uldrich, mouth twice SENIOR STAFF PSYCHOLOGIST-C a day Ventolin HFA 11/03/ Active Aerosol 108(90Bas 18uni inhale two J45.30 Mireya 2012 e) ts puffs by Uldrich, mcg/Act mouth every SENIOR STAFF PSYCHOLOGIST-C 4 to 6 hours as needed for shortness of breath,coug h or,wheezing Zofran / Active Tablets 4mg as needed Unknown 0000 Benadryl / Active Capsules 25mg 60cap two tablets Unknown 0000 s as needed every 4-6 hrs. Tramadol HCL / Active Tablets 50mg as needed Vee, John Osorio M.D. Omeprazole / Active Capsules DR 40mg once a day Unknown 0000 Cefdinir / Active Capsules 300mg 60cap tk 1 c by Chetan Camejo 0000 s mouth twice Fraser, a day MBartDBart Triamcinolone / Active Cream 0.1% Shena To Unknown Acetonide 0000 Itchy Rash One To Two Times Daily prn Ondansetron / Active Tablets 4mg Mason, 0000 Mitchell Osorio M.D. Mucinex / Active Tablets ER 600mg Unknown 0000 12HR Medications Administered in Office Medication Date Status Form Strength Qnty SIG Indications Ordering Provider Therapeutic, 01/18/ Administered Injection Nikki Prophylactic Or 2018 Mica Crandall M.D. Injection Subq/Im Therapeutic, 01/18/ Administered Injection Mireya Prophylactic Or 2018 Mica Guo SENIOR STAFF PSYCHOLOGIST-C Injection Subq/Im Injection 01/18/ Administered Injection Allergy 2018 Injection Therapeutic, 12/22/ Administered Injection Vy M Prophylactic Or 2018 Mica Koroma M.D. Injection Subq/Im Injection 12/22/ Administered Injection Allergy 2018 Injection Xolair 11/18/ Administered Injection Mireya 2018 Uldrich, SENIOR STAFF PSYCHOLOGIST-C Therapeutic, 11/18/ Administered Injection Nikki Prophylactic Or 2018 Raz Diagnostic M.D. Injection Subq/Im Injection 11/18/ Administered Injection Allergy 2018 Injection Xolair 10/21/ Administered Injection Mireya 2018 Uldrich, SENIOR STAFF PSYCHOLOGIST-C Therapeutic, 10/21/ Administered Injection Mireya Prophylactic Or 2018 Barich, Diagnostic SENIOR STAFF PSYCHOLOGIST-C Injection Subq/Im Injection 10/21/ Administered Injection Allergy 2018 Injection Therapeutic, 09/27/ Administered Injection Nikki Prophylactic Or 2018 Raz Diagnostic M.D. Injection Subq/Im Therapeutic, 09/27/ Administered Injection Mireya Prophylactic Or 2018 Barich, Diagnostic SENIOR STAFF PSYCHOLOGIST-C Injection Subq/Im Injection 09/27/ Administered Injection Allergy 2018 Injection Injection 08/31/ Administered Injection Allergy 2018 Injection Xolair 08/30/ Administered Injection Mireya 2018 Uldrich, SENIOR STAFF PSYCHOLOGIST-C Therapeutic, 08/30/ Administered Injection Nikki Prophylactic Or 2017 Raz Diagnostic M.D. Injection Subq/Im Immunizations CPT Code Status Date Vaccine Lot # [id number] Given 03/24/2013 Influenza Vaccine 97962 Given Unknown Pneumococcal Vaccine 87931 Given Unknown Pneumococcal Vaccine Vital Signs Date [...] Cells) 2 % 4-28 Percent CD4 Cell ([place] Cell) 58 % 32-64 Percent CD8 Cells (Supp Cell) 26 % 13-40 Absolute CD3 Count (T Cells) 3001 cells/L 550-2202 Absolute CD19 Count (B Cells) 474 cells/L 70-409 Absolute CD16+CD56 Count (NK) 64 cells/L 59-513 Absolute CD4 Count (Help Cell) 2073 cells/L 365-1437 Absolute CD8 Count (Supp Cell) 942 cells/L 145-846 T-[place]/Suppressor Ratio 2.2 >=0.9 T B Cell Comment [...] Chemiluminescence Microparticle Immunoassay on the Siemens Advia Centaur CP. Values obtained with different methods or [...] developed and its performance characteristics determined by [facility]. It has not been cleared or approved by the U.S. Food and Drug Administration. Test Performed by: [facility], Interface [address] [place] [address] 3 Test Performed by: [facility] - [address] [address] 4 REFERENCE VALUE Vaccinated: Positive (>=0.01 IU/mL) Unvaccinated: Negative (< 0.01 IU/mL) 5 Test Performed by: [facility] - [place] [address] 6 REFERENCE VALUE Vaccinated: Positive (>=0.01 IU/mL) Unvaccinated: Negative (< 0.01 IU/mL) 7 ADDITIONAL INFORMATION This test was developed and its performance characteristics determined by [facility] in a manner consistent with CLIA requirements. This test has not been cleared or approved by the U.S. Food and Drug Administration. Test Performed by: [facility] - [facility] [place] [address] 8 Test Performed by: [facility] [place] [address] 9 RESULT: Reviewed by: Paz Rutledge M.D., Fernando Pérez(JUANJO) ADDITIONAL INFORMATION Reference values implemented September 13, 2012. This test was developed using an analyte specific reagent. Its performance characteristics were determined by [facility] in a manner consistent with CLIA requirements. This test has not been cleared or approved by the U.S. Food and Drug Administration. Test Performed by: [facility] - [address] [address] 10 Either of the two following conditions [...] developed and its performance characteristics determined by [facility] in a manner consistent with CLIA requirements. This test has not been cleared or approved by the U.S. Food and Drug Administration. Test Performed by: [place] [address] [place] [address] 11 Test Performed by: [place] [address] 12 Test Performed by: [place] [address] 13 Test Performed by: [place] [address] 14 Test Performed by: [place] [address] 15 Test Performed by: [place] [address] Cardiology Physician: Efrain Wilkinson II, M.D., Ph.D. Procedures Date CPT Code Description Status 01/18/2018 48646 Therapeutic, Prophylactic Or Diagnostic Injection Completed Subq/Im 01/18/2018 97950 Therapeutic, Prophylactic Or Diagnostic Injection Completed Subq/Im 01/18/2018 29169 Injection Completed 12/29/2017 50458 Pre PFT Completed 12/22/2017 85380 Therapeutic, Prophylactic Or Diagnostic Injection Completed Subq/Im 12/22/2017 43957 Injection Completed 11/18/2017 06848 Xolair Completed 11/18/2017 37188 Therapeutic, Prophylactic Or Diagnostic Injection Completed Subq/Im 11/18/2017 56054 Injection Completed 10/21/2017 37751 Xolair Completed 10/21/2017 29453 Therapeutic, Prophylactic Or Diagnostic Injection Completed Subq/Im 10/21/2017 46428 Injection Completed 10/21/2017 83140 Pre PFT Completed 10/21/2017 99084 Pre PFT Completed 09/27/2017 59370 Injection Completed 09/27/2017 94178 Therapeutic, Prophylactic Or Diagnostic Injection Completed Subq/Im 09/27/2017 88568 Therapeutic, Prophylactic Or Diagnostic Injection Completed Subq/Im 09/22/2017 09926 Pre PFT Completed 08/31/2017 24942 Injection Completed 08/30/2017 36508 Xolair Completed 08/30/2017 31215 Therapeutic, Prophylactic Or Diagnostic Injection Completed Subq/Im 08/30/2017 84544 Pre PFT Completed 07/27/2017 44316 Ippb Completed 07/27/2017 21798 Ippb Completed 06/08/2017 66119 Ippb Completed 06/01/2017 50469 Ippb Completed 06/01/2017 05443 Ippb Completed 06/01/2017 11937 Pre PFT Completed 06/01/2017 12507 Pre PFT Completed 03/10/2017 08437 Pre PFT Completed 03/10/2017 03691 Pre PFT Completed 12/11/2016 24541 Ippb Completed 12/11/2016 63323 Ippb Completed 09/24/2016 54399 Pre PFT Completed 05/07/2016 39149 Pre PFT Completed 12/12/2015 94722 Pre PFT Completed 08/15/2015 66508 Pre PFT Completed 06/13/2015 86644 Pre PFT Completed 09/19/2013 50628 Pre PFT Completed 05/11/2013 60811 Oxygen Level - Pulse Oximiter Completed 04/27/2013 52791 Oxygen Level - Pulse Oximiter Completed 02/23/2013 27472 Oxygen Level - Pulse Oximiter Completed 02/23/2013 95588 Pulmonary Function Test Completed 02/02/2013 15016 Oxygen Level - Pulse Oximiter Completed 01/12/2013 71939 Oxygen Level - Pulse Oximiter Completed 11/03/2012 72956 Oxygen Level - Pulse Oximiter Completed 05/05/2012 91373 Oxygen Level - Pulse Oximiter Completed 05/05/2012 51502 Pulmonary Function Test Completed 07/30/2011 82908 Extract 1-10 Completed 07/21/2011 52412 Oxygen Level - Pulse Oximiter Completed 07/02/2011 21935 Skin Tests Id Completed 06/16/2011 30643 Oxygen Level - Pulse Oximiter Completed 06/16/2011 75420 Ippb Completed 06/09/2011 28638 Oxygen Level - Pulse Oximiter Completed 06/09/2011 00099 Oxygen Level - Pulse Oximiter Completed 06/09/2011 89979 Ippb Completed 06/04/2011 89563 Skin Test Scratch # Of Units ____ Completed 05/28/2011 30865 Pulmonary Function Test Completed Encounters Type Date Location Provider CPT E/M Dx Office Visit 09/22/2017 4:00p [place] [facility] Chetan Fraser M.D. 64561 J30.89 J45.40 J32.9 Office Visit 07/27/2017 3:40p [place] [facility] CRYSTAL Conrad 83380 J45.40 J32.9 J30.89 Office Visit 07/14/2017 11:40a [place] [facility] Chetan Fraser M.D. 30355 J30.89 J45.40 J32.9 D84.9 Z23 Office Visit 06/16/2017 10:40a [place] [facility] Chetan Fraser M.D. 54088 J30.89 J45.40 J32.9 J47.0 Z23 Office Visit 06/08/2017 11:20a [facility] CRYSTAL Sanches 22376 Z23 J45.40 J30.89 Office Visit 06/01/2017 1:40p [facility] CRYSTAL Conrad 76164 Z23 J47.9 J01.90 J45.40 Office Visit 05/20/2017 4:20p [facility] Chetan Fraser M.D. 75418 J45.40 J47.9 Z23 Office Visit 03/31/2017 11:40a [facility] Chetan Fraser M.D. 65382 J30.89 J45.40 J47.9 Z23 Office Visit 03/10/2017 2:40p [facility] CRYSTAL Sanches 61265 Z23 J30.89 J32.9 J45.40 J47.9 Office Visit 01/27/2017 11:40a [facility] Chetan Fraser M.D. 31072 J30.89 J47.9 J32.9 Z23 Office Visit 12/16/2016 2:20p [facility] Chetan Fraser M.D. 42242 J30.89 J32.9 J47.9 J45.40 Z23 Office Visit 12/11/2016 2:00p [place] Mireya Pratereleanor [facility] 56567 D84.9 J30.89 J45.40 J47.9 Z23 Office Visit 10/21/2016 11:20a [facility] Chetan Fraser M.D. 62769 J47.9 J45.40 D84.9 J30.89 Z23 Z68.42 Office Visit 09/24/2016 8:40a [place] Chetan Fraser M.D. 89757 J01.90 J45.40 D84.9 J01.90 J30.89 J30.89 D84.9 Z23 Z68.42 Office Visit 08/26/2016 11:40a [facility] Chetan Fraser M.D. 38181 J01.90 J30.89 J45.40 J47.9 Z23 Z68.42 Office Visit 08/19/2016 11:20a [facility] Chetan Fraser M.D. 24646 J01.90 J30.89 Z68.42 Z23 Office Visit 07/09/2016 11:40a [place] Chetan Fraser M.D. 19223 J30.89 J45.40 J47.9 Z68.42 Office Visit 05/07/2016 3:40p [place] Chetan Fraser M.D. 89278 J45.40 J30.89 J47.9 Z68.41 Office Visit 02/20/2016 3:00p [facility] Catracho Maria M.D. 60853 J30.1 J45.30 Z23 Z68.43 Office Visit 12/12/2015 11:20a [facility] Catracho Maria M.D. 30837 J30.1 J45.30 J32.8 Z23 Z68.41 Office Visit 08/15/2015 3:20p [facility] Catracho Maria M.D. 60274 J45.40 Z68.36 Z23 J45.40 J30.1 Office Visit 06/13/2015 11:20a [facility] Catracho Maria M.D. 36239 Z68.39 Z23 J32.8 J45.30 Office Visit 12/13/2014 8:40a [facility] Catracho Maria M.D. 14390 786.2 493.00 473.8 V85.38 V04.81 380.22 Office Visit 07/26/2014 11:00a [facility] Catracho Maria M.D. 62908 786.2 493.00 748.61 473.8 Office Visit 12/28/2013 11:40a [facility] Catracho Maria M.D. 50887 786.2 748.61 477.8 Office Visit 09/19/2013 11:00a [facility] Chetan Fraser M.D. 52789 493.00 110.5 461.0 564.00 Office Visit 06/29/2013 3:00p [facility] GONZALO Corrigan 94577 493.00 477.8 477.0 473.9 Office Visit 06/15/2013 3:20p [facility] Catracho Maria M.D. 15637 493.00 477.8 473.9 Office Visit 06/06/2013 11:00a [facility] GONZALO Corrigan 74118 493.00 477.8 477.0 Office Visit 05/11/2013 10:00a [facility] GONZALO Corrigan 71088 493.00 477.8 477.0 Office Visit 04/27/2013 1:40p [facility] GONZALO Corrigan 15190 493.00 477.8 477.0 Office Visit 03/30/2013 10:20a [facility] GONZALO Corrigan 89647 493.00 477.8 477.0 Office Visit 02/02/2013 11:00a [facility] Catracho Maria M.D. 09369 786.2 477.8 493.00 Office Visit 01/12/2013 11:00a [facility] Catracho Maria M.D. 27235 786.2 477.8 Office Visit 12/01/2012 4:00p [place] [facility] 23674 493.00 477.0 477.8 Office Visit 11/03/2012 4:20p [facility] Catracho Maria M.D. 67645 493.00 Office Visit 09/15/2012 9:40a [place] [facility] 58145 493.00 473.9 Office Visit 08/11/2012 11:20a [facility] Catracho Maria M.D. 27469 493.00 Office Visit 08/04/2012 8:40a [facility] Catracho Maria M.D. 54704 461.9 Office Visit 06/09/2012 3:20p [facility] Catracho Maria M.D. 63491 493.90 473.9 Office Visit 05/31/2012 9:20a [place] [facility] 65297 465.8 493.00 Office Visit 04/28/2012 8:30a [facility] Catracho Maria M.D. 54286 477.0 493.00 Office Visit 03/31/2012 2:00p [place] [facility] AMY HaysPJack 40619 493.00 708.1 477.0 Office Visit 02/11/2012 8:40a [place] [facility] Catracho Maria M.D. 27324 786.2 Office Visit 01/28/2012 11:00a [facility] Catracho Maria M.D. 00045 461.9 Office Visit 01/14/2012 3:40p [facility] Catracho Maria M.D. 75940 786.2 493.90 477.0 477.8 Office Visit 05/28/2011 11:40a [place] [facility] Catracho Maria M.D. 21805 786.2 493.90 477.0 477.8 Office Visit 03/05/2011 8:40a [place] [facility] Bernabe Aviles M.D. 36682 786.2 493.90 477.0 477.8 Office Visit 01/29/2011 11:00a [place] [facility] Catracho Maria M.D. 14911 786.2 493.90 477.0 477.8 Office Visit 01/06/2011 2:20p [place] [facility] Nikki Crandall M.D. 18352 786.2 493.90 477.0 477.8 Plan of Care Future Appointment(s):02/23/2018 11:00 am - Chetan Fraser M.D. at [facility]01/18/2018 - Mireya Guo, [facility]-CJ30.89 Other allergic rrzgrstgZ77.40 Moderate persistent asthma, uncomplicatedNew Medication:Prednisone 5 mgRecommendations:Continue all medications as prescribed.Refrain from wearing perfumes/scented colognes while visitingour office. Discuss another infectious disease sap security consultant and Xolair possibly every 2 weeks. Continue the Qvar 80 mcg 2 puffs twice a day Continue the Qnasl 2 sprays twice a day Use the Albuterol via nebulizer every 4-6 hours for cough, shortness of breath, chest congestion or wheezing. Monitor Albuterol use. If using more than 2x/week , please call the office as your asthma [...]
[2018-01-27 19:22] VITALS: BP 125/101
--- NOTE | 2018-01-27 20:11 | UC ---
Throat Pain/Nasal Kyaw HPI - HPI Summary HPI Summary: 47 year old female with history of asthma presents with 2 1/2 week history of nasal congestion, sinus pressure, right ear pressure, sore throat, and productive cough for green sputum. Associated with subjective fever and occasional wheezing. - History of Current Complaint Chief Complaint: UCGeneralIllness Stated Complaint: CONGESTION, VOICE LOSS Time Seen by Provider: 01/27/18 19:44 Hx Obtained From: Patient Hx Last Menstrual Period: none ?: No Onset/Duration: Gradual Onset, Lasting Weeks Severity: Moderate Pain Intensity: 6 Cough: Productive Associated Signs & Symptoms: Positive: Wheezing, Hoarseness, Sinus Discomfort, Nasal Discharge, Fever. Negative: Dysphagia, Vomiting, Rash - Allergies/Home Medications Allergies/Adverse Reactions: Allergies Allergy/AdvReac Type Severity Reaction Status Date / Time aspirin Allergy Tachycardia Verified 01/27/18 19:10 chocolate flavor Allergy Hives Verified 01/27/18 19:10 fluticasone Allergy Difficulty Verified 01/27/18 19:10 [From Advair Diskus] Breathing Latex, Natural Rubber Allergy Difficulty Verified 01/27/18 19:10 Breathing levofloxacin [From Levaquin] Allergy Headache Verified 01/27/18 19:10 loratadine Allergy Dizziness Verified 01/27/18 19:10 metoclopramide [From Reglan] Allergy Dizziness Verified 01/27/18 19:10 polyethylene glycol 3350 Allergy GI Upset Verified 01/27/18 19:10 [From Miralax] pseudoephedrine Allergy Unknown Verified 01/27/18 19:10 [From Sudafed] Reaction Details salmeterol Allergy Difficulty Verified 01/27/18 19:10 [From Advair Diskus] Breathing Sulfa (Sulfonamide Allergy Unknown Verified 01/27/18 19:10 Antibiotics) Reaction Details famotidine [From Pepcid] AdvReac Vomiting Verified 01/27/18 19:10 DAIRY AdvReac FLARES UP Uncoded 01/27/18 19:10 ASTHMA SPICES AdvReac RASH, N/V Uncoded 01/27/18 19:10 TOMATOES AdvReac N/V, RASH Uncoded 01/27/18 19:10 Home Medications: Home Medications Spiriva Inhaler DEVICE* [Tiotropium Inhaler DEVICE*] 1 inh INH DAILY 01/27/18 [ History Confirmed 01/27/18] PMH/Surg Hx/FS Hx/Imm Hx Respiratory History: Asthma GI/ History: Gastroesophageal Reflux - Surgical History Surgical History: Yes Surgery Procedure, Year, and Place: 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 Gastric Bypass surgery 2017. Left breast bx and proceedure. Other Surgical History: pt is scheduled to have gastric bypass in the next month - Family History Known Family History: Positive: Cardiac Disease, Hypertension, Diabetes, Respiratory Disease, Other - Denies any FMH of bleeding disorders - Social History Occupation: Disabled Lives: Alone Alcohol Use: None Substance Use Type: None Smoking Status (MU): Never Smoked Tobacco Have You Smoked in the Last Year: No When Did the Patient Quit Smoking/Using Tobacco: 1999 - Immunization History Most Recent Influenza Vaccination: none Most Recent Tetanus Shot: 02/2012 Vaccination Up to Date: Yes Review of Systems Constitutional: Fever, Fatigue Skin: Negative Eyes: Negative ENT: Sore Throat, Ear Ache, Nasal Discharge, Sinus Congestion, Sinus Pain/ Tenderness Respiratory: Cough, Other - wheezing Cardiovascular: Negative Gastrointestinal: Negative Is Patient Immunocompromised?: No All Other Systems Reviewed And Are Negative: Yes Physical Exam Triage Information Reviewed: Yes Appearance: Well-Appearing, No Pain Distress, Obese Vital Signs: Initial Vital Signs Temp 97 F 01/27/18 19:15 Pulse 75 01/27/18 19:15 Resp 20 01/27/18 19:15 BP 125/101 01/27/18 19:15 Pulse Ox 97 01/27/18 19:15 Vital Signs Reviewed: Yes Eyes: Positive: Conjunctiva Clear. Negative: Discharge ENT: Positive: Pharyngeal erythema - mild, Nasal congestion, Nasal drainage, TMs normal, Hoarse voice, Sinus tenderness - frontal, Uvula midline. Negative: Tonsillar swelling, Tonsillar exudate, Trismus Neck: Positive: Supple, Nontender, No Lymphadenopathy Respiratory: Positive: Chest non-tender, Lungs clear, Normal breath sounds, No respiratory distress Cardiovascular: Positive: RRR, No Murmur, Pulses Normal, Brisk Capillary Refill Neurological: Positive: Alert Skin Exam: Normal Throat Pain/Nasal Course/Dx - Course Course Of Treatment: 47 year old female with history of astma presents 2 1/2 weeks of URI/sinusitis symptoms. Exam consistent with this diagnosis. Bilateral breath sounds clear. No acute distress. Patient reports has used cefdinir successfully in the past to treat sinus infections. There is no contraindication to this therefore will prescribe a 2 week course and recommend symptomatic care with close follow with PCP since she does report intermittent wheezing. - Differential Dx/Diagnosis Provider Diagnoses: acute frontal sinusitis Discharge - Sign-Out/Discharge Documenting (check all that apply): Patient Departure All imaging exams completed and their final reports reviewed: No Studies - Discharge Plan Condition: Stable Disposition: HOME Prescriptions: Cefdinir [Cefdinir 300 MG CAP] 300 mg PO BID #20 capsule Patient Education Materials: Sinusitis (ED) Referrals: Hunter Johnson MD [Primary Care Provider] - 7 Days (For recheck.) Additional Instructions: Your symptoms are consistent with a sinus infection. Based on the duration of your symptoms we will start you on an antibiotic to help treat the infection. Start cefdinir 300 mg 1 cap twice a day for 10 days. Be sure to finish the entire prescription even if you are feeling better. Use a saline rinse (Netti Pot, Scott Med) at least twice daily to help thin secretions and promote drainage. Use your steroid nasal spray that was previous prescribed to you as directed. Continue taking your inhalers as prescribed. Follow up with your primary care provider in 7 days for follow up. Seek immediate medical attention in the emergency room if you develop fever greater than 100.5 F, have chest pain, difficulty breathing, or persistent wheezing despite using your rescue inhaler. - Billing Disposition and Condition Condition: STABLE Disposition: Home
== END 2018-01-27 20:18 | disposition home or self-care (01) ==
LOC: UCCORT 18:05
DX: J01.10 Acute frontal sinusitis, unspecified (principal); Z88.1 Allergy status to other antibiotic agents; Z88.8 Allergy status to other drugs, medicaments and biological substances; Z88.6 Allergy status to analgesic agent; J45.909 Unspecified asthma, uncomplicated
CPT/HCPCS: 99212; G0463

== ENCOUNTER 2018-09-04 09:20 | Emergency (ER) | payer MEDICAID, MEDICARE ==
--- OUTSIDE RECORDS SUMMARY | 2018-09-04 11:26 | XMS REPORT | Continuity of Care Document ---
:1970 External Reference #:[id number] Author Name Chetan Fraser M.D. Address [address] [place] [address] Care Team Providers Name Role Phone Devon Baxter M.D. 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 Primary Care Physician Unavailable Payers Date Identification Numbers Payment Provider Subscriber Effective: 2002 Policy Number: [id number] Medicare-National Emelyn Noel GVT.Sys PayID: [id number] [address] [place] [address] Policy Number: [id number] Counts Include [facility] Ins Hi Emelyn Noel Group Number: [id number] [employer] Name: Vidya Vang [address] PayID: [id number] [place] [address] Policy Number: [id number] Medicaid-Adult Emelyn Noel Group Name: 2 1 [address] [facility] PayID: [id number] [place] [address] Advance Directives Description No Information Available Problems Date Description Provider Status Onset: 01/28/2012 [...] 07/14/2017 Immunodeficiency disorder Chetan Fraser M.D. Active Onset: 08/16/2018 Essential hypertension Catracho Maria M.D. 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 ETOH Use Denies alcohol use Tobacco Use Start: Unknown Patient has never smoked Recreational Drug Use Denies Drug Use Smoking Status Reviewed: 05/25/18 Patient has never smoked Allergies, Adverse Reactions, Alerts Date Description Reaction Status Severity Comments 01/08/2011 Sudefed palpitations Active 02/02/2013 Levaquin severe headaches Active 08/15/2015 MiraLax Nausea and Vomiting Active 10/21/2016 Aspirin Active unknown 10/21/2016 Dulera Active lung issue 10/21/2016 Symbicort Active lung issue 05/25/2018 Copper rash Active 06/21/2018 Gabapentin Active Dizzy 01/08/2011 Alavert difficulty breathing Inactive 06/29/2013 Sulfa Dizzy, faint, nausea Inactive Medications Medication Date Status Form Strength Qnty SIG Indications Ordering Provider Wolf-24 08/26 Active Caps ER 300mg 30cap one tablet Chetan W. /2018 24HR s every Am Crissy Fraser Flovent HFA 08/19 Active Aerosol 220mcg/Ac 12gm 2 puff twice a Mireya t day Uldrich, [employer] Prednisone 08/13 Active Tablets 5mg 24tab 8 tabs daily Ashley /2018 s for next 3 trixie Hall MD Clindamycin 07/30 Active Capsules 300mg 42cap Take 1 Capsule Chetan W. HCL s By Mouth Every Fraser, 8 Hours M.DBart Xopenex HFA 07/20 Active Aerosol 45mcg/Act 15gm 2 puffs J45.30 Mireya /2019 inhalation Uldrich, every 6 hours [employer] as needed or 15 minutes prior to exercise Qvar Redihaler 07/19 Active Aerosol 80mcg/Act 8.7un inhale two J45.30 its puffs by mouth Uldrich, twice a day [employer] Metronidazole 06/30 Active Gel 0.75% 210un Use 1 its Applicatorful Evelio, Vaginally M.DBart Every Day X 5 Days Guaifenesin ER 06/21 Active Tablets ER 1200mg 90tab 1 by mouth 12HR s every 12 hours Uldreleanor, [employer] Anoro Ellipta 05/25 Active Aerosol 62.5-25mc 30uni Inhale one J30.89 g/Inh ts dose daily Crissy Fraser Epipen 2-Shen 08/24 Active Solution 0.3mg/0.3 2unit use as Auto-Injec ML s directed daniel Fraser M.D. Xolair 08/06 Active Solution 150mg 3unit inject 150mg Rec s under the skin Evelio, every 4 weeks. M.D. Include ancillary supplies and sterile water Albuterol 03/10 Active Nebulizer (2.5mg/3M 1650u 1 neb [facility] L) 0.083% nits inhalation Uldrich, every 4 hours [employer] as needed Qnasl 03/10 Active Aerosol 80mcg/Act 8.700 1-2 sprays in [facility] gm each nostril Uldrich, daily [employer] Benadryl Active Capsules 25mg 60cap two tablets as Unknown s needed every 4-6 hrs. Tramadol HCL Active Tablets 50mg as needed Hocking, Crissy Osorio Omeprazole Active Capsules 40mg once a day Triamcinolone Active Cream 0.1% Shena To Itchy Unknown Acet Rash One To Two Times Daily prn Ondansetron Active Tablets 4mg Hocking, Dispers Crissy Osorio Mucinex Active Tablets ER 600mg 12HR Augmentin Active Tablets 875-125mg 1 tab by mouth q12 Lisinopril Active Tablets 5mg TK 1 T PO D Unknown /0000 Medications Administered in Office Medication Date Status Form Strength Qnty SIG Indications Ordering Provider Biologic Agent 08/16/ Administered Injection Mireya Administration 2018 Uldrich, [employer] Therapeutic, 08/16/ Administered Injection Vy M Prophylactic Or 2018 Franci Diagnostic M.D. Injection Subq/Im Therapeutic, 07/19/ Administered Injection Nikki Prophylactic Or 2018 Mica Crandall M.D. Injection Subq/Im Therapeutic, 07/19/ Administered Injection Mireya Prophylactic Or 2018 Ulich, Diagnostic [employer] Injection Subq/Im Therapeutic, 06/21/ Administered Injection Mireya Prophylactic Or 2018 Ulich, Diagnostic [employer] Injection Subq/Im Biologic Agent 05/27/ Administered Injection Mireya Administration 2018 Uldrich, [employer] Therapeutic, 05/27/ Administered Injection Vy M Prophylactic Or 2018 Franci Diagnostic M.D. Injection Subq/Im Biologic Agent 04/19/ Administered Injection Mireya Administration 2017 Uldrich, [employer] Biologic Agent 03/22/ Administered Injection Mireya Administration 2017 Uldrich, [employer] Therapeutic, 03/22/ Administered Injection Vy M Prophylactic Or 2017 Franci Diagnostic M.D. Injection Subq/Im Therapeutic, 02/22/ Administered Injection Mireya Prophylactic Or 2017 Brant Diagnostic [employer] Injection Subq/Im Therapeutic, 01/18/ Administered Injection Nikki Prophylactic Or 2017 Mica Crandall M.D. Injection Subq/Im Therapeutic, 01/18/ Administered Injection Mireya Prophylactic Or 2017 Brant, Diagnostic [employer] Injection Subq/Im Injection 01/18/ Administered Injection Allergy 2018 Injection Therapeutic, 12/22/ Administered Injection Vy M Prophylactic Or 2017 Franci Diagnostic M.D. Injection Subq/Im Injection 12/22/ Administered Injection Allergy 2018 Injection Biologic Agent 11/18/ Administered Injection Mireya Administration 2017 Uldrich, [employer] Therapeutic, 11/18/ Administered Injection Nikki Prophylactic Or 2017 Mica Crandall M.D. Injection Subq/Im Injection 11/18/ Administered Injection Allergy 2018 Injection Biologic Agent 10/21/ Administered Injection Mireya Administration 2017 Uldrich, [employer] Therapeutic, 10/21/ Administered Injection Mireya Prophylactic Or 2018 Brant Diagnostic [employer] Injection Subq/Im Injection 10/21/ Administered Injection Allergy 2018 Injection Therapeutic, 09/27/ Administered Injection Nikki Prophylactic Or 2018 Mica Crandall M.DBart Injection Subq/Im Therapeutic, 09/27/ Administered Injection Mireya Prophylactic Or 2017 Brant Diagnostic [employer] Injection Subq/Im Injection 09/27/ Administered Injection Allergy 2018 Injection Injection 08/31/ Administered Injection Allergy 2018 Injection Biologic Agent 08/30/ Administered Injection Mireya Administration 2017 Brant, [employer] Therapeutic, 08/30/ Administered Injection Nikki Prophylactic Or 2017 Mica Crandall.DBart Injection Subq/Im Immunizations CPT Code Status Date Vaccine Lot # [id number] Given 03/24/2013 Influenza Vaccine 24829 Given Unknown Pneumococcal Vaccine 87262 Given Unknown Pneumococcal Vaccine Vital Signs Date Vital Result Comment 08/16/2018 3:08pm Body Temperature 97.5 F 08/16/2018 2:40pm Height 65 inches 5'5" Patient stated Weight 226.00 lb Patient stated Weight 102.514 kg Respiratory Rate 16 /min Heart Rate 68 /min O2 % BldC Oximetry 99 % BP Systolic 147 mmHg patient takes bp meds BP Diastolic 66 mmHg patient takes bp meds Asthma Control Test 18 BMI (Body Mass Index) 37.6 kg/m2 07/27/2018 3:33pm Height 65 inches 5'5" Patient stated Weight 226.00 lb Weight 102.514 kg Heart Rate 102 /min O2 % BldC Oximetry 97 % BP Systolic 141 mmHg BP Diastolic 83 mmHg Asthma Control Test 12 BMI (Body Mass Index) 37.6 kg/m2 07/19/2018 11:13am Height 65 inches 5'5" Patient stated Weight 226.00 lb Weight 102.514 kg Respiratory Rate 20 /min Heart Rate 92 /min O2 % BldC Oximetry 98 % BP Systolic 110 mmHg BP Diastolic 73 mmHg Asthma Control Test 11 BMI (Body Mass Index) 37.6 kg/m2 06/21/2018 4:55pm Height 65 inches 5'5" Patient stated Weight 226.00 lb Weight 102.514 kg Respiratory Rate 20 /min Heart Rate 87 /min O2 % BldC Oximetry 98 % BP Systolic 120 mmHg BP Diastolic 78 mmHg Asthma Control Test 8 BMI (Body Mass Index) 37.6 kg/m2 05/27/2018 2:35pm Height 65 inches 5'5" Weight 226.00 lb Weight 102.514 kg Respiratory Rate 20 /min Heart Rate 90 /min O2 % BldC Oximetry 96 % BP Systolic 127 mmHg BP Diastolic 77 mmHg Asthma Control Test 12 Fractional Exhaled Nitric Oxide 11 BMI (Body Mass Index) 37.6 kg/m2 05/25/2018 11:35am Height 65 inches 5'5" Weight 226.00 lb Weight 102.514 kg Respiratory Rate 20 /min Heart Rate 82 /min O2 % BldC Oximetry 99 % BP Systolic 154 mmHg BP Diastolic 86 mmHg Asthma Control Test 12 BMI (Body Mass Index) 37.6 kg/m2 04/19/2018 4:23pm Height 65 inches 5'5" Weight 220.00 lb Weight 99.792 kg Respiratory Rate 18 /min Heart Rate 76 /min O2 % BldC Oximetry 97 % BP Systolic 131 mmHg BP Diastolic 80 mmHg Asthma Control Test 15 Fractional Exhaled Nitric Oxide 24 BMI (Body Mass Index) 36.6 kg/m2 03/22/2018 1:29pm Height 65 inches 5'5" Weight 220.00 lb Weight 99.792 kg Respiratory Rate 18 /min Heart Rate 81 /min O2 % BldC Oximetry 98 % BP Systolic 116 mmHg BP Diastolic 72 mmHg Asthma Control Test 22 BMI (Body Mass Index) 36.6 kg/m2 02/23/2018 11:27am Height 65 inches 5'5" Weight 220.00 lb Weight 99.792 kg Respiratory Rate 16 /min Heart Rate 71 /min O2 % BldC Oximetry 98 % BP Systolic 119 mmHg BP Diastolic 71 mmHg Asthma Control Test 6 yesterday BMI (Body Mass Index) 36.6 kg/m2 02/22/2018 2:29pm Height 65 inches 5'5" Weight 217.00 lb patient stated Weight 98.431 kg Respiratory Rate 16 /min Heart Rate 68 /min O2 % BldC Oximetry 98 % BP Systolic 122 mmHg BP Diastolic 72 mmHg Asthma Control Test 6 BMI (Body Mass Index) 36.1 kg/m2 01/18/2018 10:04am Height 65 inches 5'5" Weight 217.00 lb Weight 98.431 kg Respiratory Rate 16 /min Heart Rate 80 /min O2 % BldC Oximetry 99 % BP Systolic 123 mmHg BP Diastolic 84 mmHg Asthma Control Test 11 BMI (Body Mass Index) 36.1 kg/m2 12/29/2017 10:53am Height 65 inches 5'5" Weight 215.00 lb Weight 97.524 kg Respiratory Rate 18 /min Heart Rate 82 /min O2 % BldC Oximetry 98 % BP Systolic 119 mmHg BP Diastolic 73 mmHg Asthma Control Test 9 BMI (Body Mass Index) 35.8 kg/m2 12/22/2017 10:11am Height 65 inches 5'5" Weight 221.00 lb Weight 100.246 kg Respiratory Rate 22 /min Heart Rate 68 /min Body Temperature 98.4 F O2 % BldC Oximetry 98 % BP Systolic 103 mmHg BP Diastolic 67 mmHg Asthma Control Test 6 BMI (Body Mass Index) 36.8 kg/m2 11/18/2017 1:31pm Height 65 inches 5'5" Weight 218.00 lb Weight 98.885 kg Respiratory Rate 22 /min Heart Rate 69 /min O2 % BldC Oximetry 99 % BP Systolic 102 mmHg BP Diastolic 80 mmHg Asthma Control Test 10 BMI (Body Mass Index) 36.3 kg/m2 10/21/2017 1:45pm Height 65 inches 5'5" Weight 215.00 lb Weight 97.524 kg Respiratory Rate 22 /min Heart Rate 78 /min O2 % BldC Oximetry 99 % BP Systolic 127 mmHg BP Diastolic 85 mmHg Asthma Control Test 16 BMI (Body Mass Index) 35.8 kg/m2 09/27/2017 2:26pm Height 65 inches 5'5" Weight 217.00 lb Weight 98.431 kg Respiratory Rate 16 /min Heart Rate 85 /min O2 % BldC Oximetry 98 % BP Systolic 123 mmHg BP Diastolic 62 mmHg BMI (Body Mass Index) 36.1 kg/m2 09/22/2017 4:24pm Height 65 inches 5'5" Weight 215.00 lb Weight 97.524 kg Respiratory Rate 22 /min Heart Rate 96 /min O2 % BldC Oximetry 99 % BP Systolic 120 mmHg BP Diastolic 41 mmHg Asthma Control Test 16 BMI (Body Mass Index) 35.8 kg/m2 08/30/2017 10:37am Height 65 inches 5'5" Weight 218.00 lb Weight 98.885 kg Respiratory Rate 22 /min Heart Rate 71 /min O2 % BldC Oximetry 98 % BP Systolic 124 mmHg BP Diastolic 68 mmHg Asthma Control Test 10 BMI (Body Mass Index) 36.3 kg/m2 07/27/2017 5:14pm Respiratory Rate 20 /min Heart Rate 82 /min Body Temperature 98.7 F O2 % BldC Oximetry 98 % BP Systolic 112 mmHg BP Diastolic 77 mmHg 07/27/2017 3:56pm Height 64 inches 5'4" Weight 225.00 lb Weight 102.060 kg Respiratory Rate 20 /min Heart Rate 97 /min Body Temperature 98.6 F O2 % BldC Oximetry 98 % BP Systolic 116 mmHg BP Diastolic 75 mmHg Asthma Control Test 8 BMI (Body Mass Index) 38.6 kg/m2 07/14/2017 11:51am Height 64 inches 5'4" Weight 220.00 lb Patient stated Weight 99.792 kg Respiratory Rate 16 /min Heart Rate 89 /min O2 % BldC Oximetry 98 % BP Systolic 133 mmHg BP Diastolic 88 mmHg Asthma Control Test 12 BMI (Body Mass Index) 37.8 kg/m2 06/16/2017 10:43am Height 64 inches 5'4" Weight 220.00 lb Weight 99.792 kg Respiratory Rate 20 /min Heart Rate 95 /min O2 % BldC Oximetry 98 % BP Systolic 120 mmHg BP Diastolic 65 mmHg Asthma Control Test 7 BMI (Body Mass Index) 37.8 kg/m2 06/08/2017 11:18am Height 64 inches 5'4" Weight 220.00 lb Weight 99.792 kg Respiratory Rate 20 /min Heart Rate 93 /min O2 % BldC Oximetry 98 % BP Systolic 116 mmHg BP Diastolic 78 mmHg Asthma Control Test 9 BMI (Body Mass Index) 37.8 kg/m2 06/01/2017 1:45pm Height 64 inches 5'4" Weight 221.00 lb Weight 100.246 kg Respiratory Rate 20 /min Heart Rate 80 /min Body Temperature 98.8 F O2 % BldC Oximetry 98 % BP Systolic 128 mmHg BP Diastolic 73 mmHg Asthma Control Test 7 BMI (Body Mass Index) 37.9 kg/m2 05/20/2017 4:22pm Height 64 inches 5'4" Weight 221.00 lb Weight 100.246 kg Respiratory Rate 18 /min Heart Rate 70 /min O2 % BldC Oximetry 98 % BP Systolic 135 mmHg BP Diastolic 79 mmHg Asthma Control Test 7 BMI (Body Mass Index) 37.9 kg/m2 03/31/2017 11:41am Height 64 inches 5'4" Weight 224.00 lb Weight 101.606 kg Respiratory Rate 20 /min Heart Rate 86 /min O2 % BldC Oximetry 98 % BP Systolic 113 mmHg BP Diastolic 72 mmHg Asthma Control Test 11 BMI (Body Mass Index) 38.4 kg/m2 03/10/2017 2:43pm Height 64 inches 5'4" Weight 233.00 lb Patient stated Weight 105.689 kg Respiratory Rate 20 /min Heart Rate 72 /min O2 % BldC Oximetry 98 % BP Systolic 128 mmHg BP Diastolic 82 mmHg Asthma Control Test 8 BMI (Body Mass Index) 40.0 kg/m2 01/27/2017 11:51am Height 64 inches 5'4" Weight 233.00 lb Weight 105.689 kg Respiratory Rate 16 /min Heart Rate 89 /min O2 % BldC Oximetry 98 % BP Systolic 96 mmHg BP Diastolic 67 mmHg Asthma Control Test 12 BMI (Body Mass Index) 40.0 kg/m2 12/16/2016 2:26pm Height 64 inches 5'4" Weight 246.00 lb Weight 111.586 kg Respiratory Rate 16 /min Heart Rate 71 /min O2 % BldC Oximetry 97 % BP Systolic 125 mmHg BP Diastolic 84 mmHg Asthma Control Test 6 BMI (Body Mass Index) 42.2 kg/m2 12/11/2016 2:03pm Height 64 inches 5'4" Weight 249.00 lb Weight 112.946 kg Respiratory Rate 20 /min Heart Rate 73 /min Body Temperature 98.4 F O2 % BldC Oximetry 98 % BP Systolic 128 mmHg BP Diastolic 64 mmHg Asthma Control Test 7 BMI (Body Mass Index) 42.7 kg/m2 10/21/2016 11:34am Height 64 inches 5'4" Weight 268.00 lb Weight 121.565 kg Respiratory Rate 24 /min Heart Rate 85 /min O2 % BldC Oximetry 98 % BP Systolic 133 mmHg BP Diastolic 81 mmHg Asthma Control Test 10 BMI (Body Mass Index) 46.0 kg/m2 10/21/2016 11:33am Height 64 inches 5'4" 09/24/2016 8:43am Height 64 inches 5'4" Weight 264.00 lb Weight 119.750 kg Heart Rate 74 /min O2 % BldC Oximetry 98 % BP Systolic 130 mmHg BP Diastolic 85 mmHg Asthma Control Test 8 BMI (Body Mass Index) 45.3 kg/m2 08/26/2016 11:42am Height 64 inches 5'4" Weight 264.00 lb Weight 119.750 kg Respiratory Rate 18 /min Heart Rate 89 /min O2 % BldC Oximetry 98 % BP Systolic 122 mmHg BP Diastolic 72 mmHg Asthma Control Test 8 BMI (Body Mass Index) 45.3 kg/m2 08/19/2016 11:36am Height 64 inches 5'4" Weight 263.00 lb Weight 119.297 kg Respiratory Rate 24 /min Heart Rate 75 /min O2 % BldC Oximetry 98 % BP Systolic 139 mmHg BP Diastolic 80 mmHg Asthma Control Test 7 BMI (Body Mass Index) 45.1 kg/m2 07/09/2016 11:23am Height 64 inches 5'4" Weight 265.00 lb Weight 120.204 kg Respiratory Rate 16 /min Heart Rate 89 /min O2 % BldC Oximetry 98 % BP Systolic 123 mmHg BP Diastolic 92 mmHg BMI (Body Mass Index) 45.5 kg/m2 05/07/2016 3:58pm Height 64 inches 5'4" Weight 252.00 lb Weight 114.307 kg Respiratory Rate 20 /min Heart Rate 83 /min O2 % BldC Oximetry 98 % BP Systolic 119 mmHg BP Diastolic 90 mmHg Asthma Control Test 13 BMI (Body Mass Index) 43.3 kg/m2 02/20/2016 12:22pm Height 64 inches 5'4" Weight 251.00 lb Weight 113.854 kg Respiratory Rate 16 /min Heart Rate 67 /min O2 % BldC Oximetry 99 % BP Systolic 138 mmHg right arm re-take BP Diastolic 82 mmHg right arm re-take Asthma Control Test 11 BMI (Body Mass Index) 43.1 kg/m2 02/20/2016 12:09pm Height 64 inches 5'4" Weight 251.00 lb Weight 113.854 kg Respiratory Rate 16 /min Heart Rate 67 /min O2 % BldC Oximetry 99 % BP Systolic 149 mmHg left wrist BP Diastolic 79 mmHg left wrist Asthma Control Test 11 BMI (Body Mass Index) 43.1 kg/m2 12/12/2015 11:28am Height 64 inches 5'4" Weight 242.00 lb Weight 109.771 kg Respiratory Rate 18 /min Heart Rate 84 /min O2 % BldC Oximetry 98 % BP Systolic 124 mmHg BP Diastolic 82 mmHg Asthma Control Test 9 BMI (Body Mass Index) 41.5 kg/m2 08/15/2015 3:39pm Height 65 inches 5'5" Weight 220.00 lb Weight 99.792 kg Respiratory Rate 18 /min Heart Rate 92 /min O2 % BldC Oximetry 98 % BP Systolic 114 mmHg BP Diastolic 81 mmHg Asthma Control Test 7 BMI (Body Mass Index) 36.6 kg/m2 06/13/2015 11:31am Height 65 inches 5'5" Weight 235.00 lb Weight 106.596 kg Respiratory Rate 18 /min Heart Rate 82 /min O2 % BldC Oximetry 98 % BP Systolic 126 mmHg BP Diastolic 86 mmHg BMI (Body Mass Index) 39.1 kg/m2 12/13/2014 8:45am Height 65 inches 5'5" Weight 230.00 lb Weight 104.328 kg Respiratory Rate 18 /min Heart Rate 78 /min O2 % BldC Oximetry 98 % BP Systolic 116 mmHg BP Diastolic 77 mmHg Asthma Control Test 9 BMI (Body Mass Index) 38.3 kg/m2 07/26/2014 11:15am Height 65 inches 5'5" Weight 238.00 lb Weight 107.957 kg Respiratory Rate 20 /min Heart Rate 86 /min O2 % BldC Oximetry 98 % BP Systolic 142 mmHg BP Diastolic 90 mmHg Asthma Control Test 7 BMI (Body Mass Index) 39.6 kg/m2 12/28/2013 11:41am Height 65 inches 5'5" Weight 229.00 lb Weight 103.874 kg Respiratory Rate 22 /min Heart Rate 77 /min O2 % BldC Oximetry 99 % BP Systolic 134 mmHg BP Diastolic 80 mmHg Asthma Control Test 10 BMI (Body Mass Index) 38.1 kg/m2 09/19/2013 11:13am Height 65 inches 5'5" Weight 229.00 lb Weight 103.874 kg Respiratory Rate 22 /min Heart Rate 94 /min O2 % BldC Oximetry 98 % BP Systolic 120 mmHg BP Diastolic 78 mmHg Asthma Control Test 8 BMI (Body Mass Index) 38.1 kg/m2 06/29/2013 3:00pm Height 64 inches 5'4" Weight 219.00 lb Weight 99.338 kg Respiratory Rate 18 /min Heart Rate 87 /min O2 % BldC Oximetry 97 % BP Systolic 118 mmHg BP Diastolic 88 mmHg Asthma Control Test 5 BMI (Body Mass Index) 37.6 kg/m2 06/15/2013 3:14pm Height 64 inches 5'4" Weight 221.00 lb Weight 100.246 kg Heart Rate 97 /min O2 % BldC Oximetry 98 % BMI (Body Mass Index) 37.9 kg/m2 06/06/2013 10:47am Height 64 inches 5'4" Weight 221.00 lb Weight 100.246 kg Respiratory Rate 18 /min Heart Rate 80 /min O2 % BldC Oximetry 98 % Asthma Control Test 8 BMI (Body Mass Index) 37.9 kg/m2 05/11/2013 9:42am Height 64 inches 5'4" Weight 221.00 lb Weight 100.246 kg Respiratory Rate 18 /min Heart Rate 88 /min O2 % BldC Oximetry 98 % BMI (Body Mass Index) 37.9 kg/m2 04/27/2013 1:48pm Height 64.4 inches 5'4.40" Weight 221.00 lb Weight 100.246 kg Respiratory Rate 20 /min Heart Rate 94 /min O2 % BldC Oximetry 96 % BP Systolic 130 mmHg BP Diastolic 78 mmHg Asthma Control Test 7 BMI (Body Mass Index) 37.5 kg/m2 03/30/2013 10:25am Height 64.4 inches 5'4.40" Weight 221.00 lb Weight 100.246 kg Respiratory Rate 20 /min Heart Rate 90 /min O2 % BldC Oximetry 98 % BMI (Body Mass Index) 37.5 kg/m2 02/23/2013 10:13am Height 64.5 inches 5'4.50" Weight 221.00 lb Weight 100.246 kg Respiratory Rate 18 /min Heart Rate 99 /min O2 % BldC Oximetry 98 % BMI (Body Mass Index) 37.3 kg/m2 02/02/2013 10:49am Height 65 inches 5'5" Weight 221.00 lb Weight 100.246 kg Respiratory Rate 18 /min Heart Rate 84 /min O2 % BldC Oximetry 99 % BMI (Body Mass Index) 36.8 kg/m2 01/12/2013 11:14am Height 64 inches 5'4" Weight 223.00 lb Weight 101.153 kg Respiratory Rate 18 /min Heart Rate 84 /min O2 % BldC Oximetry 99 % BMI (Body Mass Index) 38.3 kg/m2 12/01/2012 3:58pm Height 64 inches 5'4" Weight 225.00 lb Weight 102.060 kg Respiratory Rate 28 /min Heart Rate 96 /min O2 % BldC Oximetry 98 % BP Systolic 142 mmHg BP Diastolic 84 mmHg BMI (Body Mass Index) 38.6 kg/m2 11/03/2012 4:23pm Height 64 inches 5'4" Weight 225.00 lb Weight 102.060 kg Respiratory Rate 20 /min Heart Rate 85 /min O2 % BldC Oximetry 98 % BP Systolic 126 mmHg BP Diastolic 80 mmHg BMI (Body Mass Index) 38.6 kg/m2 09/15/2012 9:50am Heart Rate 85 /min O2 % BldC Oximetry 98 % BP Systolic 128 mmHg BP Diastolic 72 mmHg 08/11/2012 11:21am Height 64 inches 5'4" Weight 230.00 lb Weight 104.328 kg Heart Rate 79 /min O2 % BldC Oximetry 99 % BMI (Body Mass Index) 39.5 kg/m2 05/31/2012 9:56am Respiratory Rate 16 /min Heart Rate 92 /min 03/31/2012 2:46pm Respiratory Rate 18 /min Heart Rate 88 /min 03/31/2012 2:34pm Respiratory Rate 18 /min Heart Rate 88 /min Results Test Date Facility Test Result H/L Range Note CBC Auto Diff 11/03/2017 [facility] White Blood 8.6 10^3/uL N 3.5-10.[address] [place] [address] [phone] Red Blood Count 4.47 10^6/uL N 4.00-5.40 Hemoglobin 12.7 g/dL N 12.0-16.0 Hematocrit 39 % N 35-47 Mean Corpuscular Volume 88 fL N 80-97 Mean Corpuscular Hemoglobin 28 pg N 27-31 Mean Corpuscular HGB Conc 32 g/dL N 31-36 Red Cell Distribution Width 14 % N 10.5-15 Platelet Count 366 10^3/uL N 150-450 Mean Platelet Volume 9.5 um3 N 7.4-10.4 Abs Neutrophils 5.2 10^3/uL N 1.5-7.7 Abs Lymphocytes 2.7 10^3/uL N 1.0-4.8 Abs Monocytes 0.5 10^3/uL N 0-0.8 Abs Eosinophils 0.1 10^3/uL N 0-0.6 Abs Basophils 0.1 10^3/uL N 0-0.2 Abs Nucleated RBC 0 10^3/uL Granulocyte % 60.6 % N 38-83 Lymphocyte % 31.3 % N 25-47 Monocyte % 6.1 % N 0-7 Eosinophil % 1.1 % N 0-6 Basophil % 0.9 % N 0-2 Nucleated Red Blood Cells % 0.1 CBC Auto 07/19/2017 [facility] White Blood 11.4 10^3/uL High 3.5-10.[address] [place] [address] [phone] Red Blood Count 4.48 10^6/uL N 4.0-5.4 Hemoglobin 13.1 g/dL N 12.0-16.0 Hematocrit 40 % N 35-47 Mean Corpuscular Volume 89 fL N 80-97 Mean Corpuscular Hemoglobin 29 pg N 27-31 Mean Corpuscular HGB Conc 33 g/dL N 31-36 Red Cell Distribution Width 14 % N 10.5-15 Platelet Count 322 10^3/uL N 150-450 Mean Platelet Volume 9 um3 N 7.4-10.4 Abs Neutrophils 6.5 10^3/uL N 1.5-7.7 Abs Lymphocytes 4.0 10^3/uL N 1.0-4.8 Abs Monocytes 0.7 10^3/uL N 0-0.8 Abs Eosinophils 0.1 10^3/uL N 0-0.6 Abs Basophils 0.1 10^3/uL N 0-0.2 Abs Nucleated RBC 0 10^3/uL Granulocyte % 56.6 % N 38-83 Lymphocyte % 35.2 % N 25-47 Monocyte % 6.0 % N 0-7 Eosinophil % 1.3 % N 0-6 Basophil % 0.9 % N 0-2 Nucleated Red Blood Cells % 0 T&B Cell 07/19/2017 [facility] Absolute 3.58 Abnormal 0.82- 2.[address] CD45 Count thou/[place] [address] [phone] Percent CD3 Cells (T Cells) 84 % 58-86 Percent CD19 Cells (B Cells) 13 % 6-24 % CD16+CD56 Cells (NK Cells) 2 % Abnormal 4-28 Percent CD4 Cell ([facility]) 58 % 32-64 Percent CD8 Cells (Supp Cell) 26 % 13-40 Absolute CD3 Count (T Cells) 3001 cells/L Abnormal 550-2202 Absolute CD19 Count (B Cells) 474 cells/L Abnormal 70-409 Absolute CD16+CD56 Count (NK) 64 cells/L 59-513 Absolute CD4 Count (Help Cell) 2073 cells/L Abnormal 365-1437 Absolute CD8 Count (Supp Cell) 942 cells/L Abnormal 145-846 T-[place]/Suppressor Ratio 2.2 >=0.9 T B Cell Comment See Comment 1 Laboratory test 07/19/2017 [facility] Immunoglobulin E 11.6 kU/ L <=214 [address] ([place]) [place], [place] [id number] [phone] Tetanus Toxoid 07/19/2017 [facility] Tetanus Toxoid IgG Positive 3 Igg Antibody,S [address] [place] [address] [phone] Tetanus Toxoid IgG Value 0.92 IU/mL 4 HIV 1/2 AB 07/19/2017 [facility] HIV 1 2 Nonreactive Nonreactive [address] [place] [address] [phone] Laboratory test 07/19/2017 [facility] Miscellaneous See Comment [address] Test [place], [place] [id number] [phone] Immunoglobulins 07/19/2017 [facility] Immunoglobulin 799 mg/dL 767 - 1590 7 Serum Quant [address] [place] [address] [phone] Immunoglobulin M 94 mg/dL 37 - 286 Immunoglobulin A 163 mg/dL 61 - 356 Diptheria Igg 07/19/2017 [facility] Diphtheria IgG Positive [address] [place] [address] [phone] Diphtheria IgG Value 0.44 IU/mL 9 CBC W/Auto 10/20/2016 [facility] White Blood 11.3 10^3/uL High 3.5-10.8 Diff Cancer [address] [place] [address] [phone] Red Blood Count 4.72 10^6/uL N 4.0-5.4 Hemoglobin 13.3 g/dL N 12.0-16.0 Hematocrit 41 % N 35-47 Mean Corpuscular Volume 87 fL N 80-97 Mean Corpuscular Hemoglobin 28 pg N 27-31 Mean Corpuscular HGB Conc 33 g/dL N 31-36 Red Cell Distribution Width 14 % N 10.5-15 Platelet Count 382 10^3/uL N 150-450 Mean Platelet Volume 9 um3 N 7.4-10.4 Abs Neutrophils 6.9 10^3/uL N 1.5-7.7 Abs Lymphocytes 3.5 10^3/uL N 1.0-4.8 Abs Monocytes 0.6 10^3/uL N 0-0.8 Abs Eosinophils 0.3 10^3/uL N 0-0.6 Abs Basophils 0.1 10^3/uL N 0-0.2 Abs Nucleated RBC 0.01 10^3/uL N Granulocyte % 60.5 % N 38-83 Lymphocyte % 30.6 % N 25-47 Monocyte % 5.1 % N 1-9 Eosinophil % 3.0 % N 0-6 Basophil % 0.8 % N 0-2 Nucleated Red Blood Cells % 0.1 N S.Pneumoniae Igg 10/20/2016 [facility] S. pneumoniae 17.0 g/ mL N >=2.3 AB [address] Type 1 [place] [address] [phone] S. pneumoniae Type 2 IgG AB 6.4 g/mL N >=1.0 S. pneumoniae Type 3 IgG AB 45.7 g/mL N >=1.8 S. pneumoniae Type 4 IgG AB 67.1 g/mL N >=0.6 S. pneumoniae Type 5 IgG AB 49.8 g/mL N >=10.7 S. pneumoniae Type 8 IgG AB 21.7 g/mL N >=2.9 S. pneumoniae Type 9N IgG AB 29.3 g/mL N >=9.2 S. pneumoniae Type 12F IgG AB 4.3 g/mL N >=0.6 S. pneumoniae Type 14 IgG AB 78.7 g/mL N >=7.0 S. pneumoniae Type 17F IgG AB 62.2 g/mL N >=7.8 S. pneumoniae Type 19F IgG AB 49.6 g/mL N >=15.0 S. pneumoniae Type 20 IgG AB 19.8 g/mL N >=1.3 S. pneumoniae Type 22F IgG AB 57.9 g/mL N >=7.2 S. pneumoniae Type 23F IgG AB 108.1 g/mL N >=8.0 S. pneumoniae Type 6B IgG AB 164.1 g/mL N >=4.7 S. pneumoniae Type 10A IgG AB 60.0 g/mL N >=2.9 S. pneumoniae Type 11A IgG AB 9.1 g/mL N >=2.4 S. pneumoniae Type 7F IgG AB 57.3 g/mL N >=3.2 S. pneumoniae Type 15B IgG AB 13.1 g/mL N >=3.3 S. pneumoniae Type 18C IgG AB 16.0 g/mL N >=3.3 S. pneumoniae Type 19A IgG AB 76.7 g/mL N >=17.1 S. pneumoniae Type 9V IgG AB 53.4 g/mL N >=2.6 S. pneumoniae Type 33F IgG AB 15.1 g/mL N >=1.7 10 Laboratory test 10/20/2016 [facility] Immunoglobulin G 1170 N 767 - 11 finding 101 [facility] (Igg) mg/dL [address] [place] [address] [phone] Immunoglobulin M (Igm) 140 mg/dL N 37 - 286 12 Immunoglobulin A (Iga) 186 mg/dL N 61 - 356 13 Immunoglobulin E (Ige) 34.1 kU/L N <=214 14 Laboratory test 08/27/2015 [facility] Immunoglobulin E 58.4 kU/ L N <=214 15 finding 101 [facility] (Ige) [place] [address] [phone] RESULT: Reviewed by: Paz Rutledge M.D., D. , D(JUANJO) ADDITIONAL INFORMATION Reference values implemented September 13, 2012. This test was developed using an analyte specific reagent. Its performance characteristics were determined by [facility] in a manner consistent with CLIA requirements. This test has not been cleared or approved by the U.S. Food and Drug Administration. Test Performed by: [facility] [address] [place] [address] 2 Test Performed by: [facility] [address] [place] [address] 3 REFERENCE VALUE Vaccinated: Positive (>=0.01 IU/mL) Unvaccinated: Negative (< 0.01 IU/mL) 4 ADDITIONAL INFORMATION This test was developed and its performance characteristics determined by [facility] in a manner consistent with CLIA requirements. This test has not been cleared or approved by the U.S. Food and Drug Administration. Test Performed by: [facility] [employer] [address] [place] [address] 5 It is recognized that currently available assays [...] 95% confidence interval of 99.78 to 99.96%. 6 Test Result Flag Unit RefValue Pneumococcal Ab [...] developed and its performance characteristics determined by [facility]. It has not been cleared or approved by the U.S. Food and Drug Administration. Test Performed by: [facility], Interface [address] [place] [address] 7 Test Performed by: [facility] - [address] [address] 8 REFERENCE VALUE Vaccinated: Positive (>=0.01 IU/mL) Unvaccinated: Negative (< 0.01 IU/mL) 9 Test Performed by: [facility] [address] [place] [address] 10 Either of the two following conditions [...] developed and its performance characteristics determined by [facility] in a manner consistent with CLIA requirements. This test has not been cleared or approved by the U.S. Food and Drug Administration. Test Performed by: [place] [address] 11 Test Performed by: [place] [address] 12 Test Performed by: [address] [address] 13 Test Performed by: [address] [address] 14 Test Performed by: [address] [address] 15 Test Performed by: [place] [address] [employer]: Efrain Wilkinson II, M.D., Ph.D. Procedures Date Code Description Status 08/16/2018 84554 Biologic Agent Administration Completed 08/16/2018 74601 Therapeutic, Prophylactic Or Diagnostic Injection Subq/Im Completed 07/19/2018 12900 Therapeutic, Prophylactic Or Diagnostic Injection Subq/Im Completed 07/19/2018 72799 Therapeutic, Prophylactic Or Diagnostic Injection Subq/Im Completed 06/21/2018 95986 Therapeutic, Prophylactic Or Diagnostic Injection Subq/Im Completed 05/27/2018 37241 Biologic Agent Administration Completed 05/27/2018 14995 Therapeutic, Prophylactic Or Diagnostic Injection Subq/Im Completed 05/27/2018 44787 Nitric Oxide Gas Determination Completed 04/19/2018 63914 Nitric Oxide Gas Determination Completed 04/19/2018 92585 Biologic Agent Administration Completed 03/22/2018 83085 Biologic Agent Administration Completed 03/22/2018 50357 Therapeutic, Prophylactic Or Diagnostic Injection Subq/Im Completed 02/22/2018 92140 Therapeutic, Prophylactic Or Diagnostic Injection Subq/Im Completed 01/18/2018 28095 Therapeutic, Prophylactic Or Diagnostic Injection Subq/Im Completed 01/18/2018 53581 Therapeutic, Prophylactic Or Diagnostic Injection Subq/Im Completed 01/18/2018 45450 Injection Completed 12/29/2017 53911 Pre PFT Completed 12/22/2017 24816 Injection Completed 12/22/2017 94445 Therapeutic, Prophylactic Or Diagnostic Injection Subq/Im Completed 11/18/2017 96670 Biologic Agent Administration Completed 11/18/2017 38780 Therapeutic, Prophylactic Or Diagnostic Injection Subq/Im Completed 11/18/2017 97117 Injection Completed 10/21/2017 03910 Biologic Agent Administration Completed 10/21/2017 48883 Therapeutic, Prophylactic Or Diagnostic Injection Subq/Im Completed 10/21/2017 38884 Injection Completed 10/21/2017 62552 Pre PFT Completed 10/21/2017 02145 Pre PFT Completed 09/27/2017 46663 Injection Completed 09/27/2017 51302 Therapeutic, Prophylactic Or Diagnostic Injection Subq/Im Completed 09/27/2017 59075 Therapeutic, Prophylactic Or Diagnostic Injection Subq/Im Completed 09/22/2017 72277 Pre PFT Completed 08/31/2017 84728 Injection Completed 08/30/2017 07471 Biologic Agent Administration Completed 08/30/2017 59686 Therapeutic, Prophylactic Or Diagnostic Injection Subq/Im Completed 08/30/2017 16931 Pre PFT Completed 07/27/2017 36128 Ippb Completed 07/27/2017 87509 Ippb Completed 06/08/2017 01585 Ippb Completed 06/01/2017 81559 Ippb Completed 06/01/2017 01892 Ippb Completed 06/01/2017 70852 Pre PFT Completed 06/01/2017 00884 Pre PFT Completed 03/10/2017 82310 Pre PFT Completed 03/10/2017 55965 Pre PFT Completed 12/11/2016 34685 Ippb Completed 12/11/2016 49042 Ippb Completed 09/24/2016 61004 Pre PFT Completed 05/07/2016 94328 Pre PFT Completed 12/12/2015 07351 Pre PFT Completed 08/15/2015 77331 Pre PFT Completed 06/13/2015 69908 Pre PFT Completed 09/19/2013 09139 Pre PFT Completed 05/11/2013 18038 Oxygen Level - Pulse Oximiter Completed 04/27/2013 52108 Oxygen Level - Pulse Oximiter Completed 02/23/2013 47189 Oxygen Level - Pulse Oximiter Completed 02/23/2013 16622 Pulmonary Function Test Completed 02/02/2013 93481 Oxygen Level - Pulse Oximiter Completed 01/12/2013 09140 Oxygen Level - Pulse Oximiter Completed 11/03/2012 30186 Oxygen Level - Pulse Oximiter Completed 05/05/2012 77484 Oxygen Level - Pulse Oximiter Completed 05/05/2012 52711 Pulmonary Function Test Completed 07/30/2011 82591 Extract 1-10 Completed 07/21/2011 08882 Oxygen Level - Pulse Oximiter Completed 07/02/2011 33755 Skin Tests Id Completed 06/16/2011 70151 Oxygen Level - Pulse Oximiter Completed 06/16/2011 66839 Ippb Completed 06/09/2011 51831 Oxygen Level - Pulse Oximiter Completed 06/09/2011 44995 Oxygen Level - Pulse Oximiter Completed 06/09/2011 12637 Ippb Completed 06/04/2011 49577 Skin Test Scratch # Of Units ____ Completed 05/28/2011 04071 Pulmonary Function Test Completed Encounters Type Date Location Provider Dx Diagnosis Office Visit 05/25/2018 [facility] Chetan Camejo J30.89 Other allergic 11:20a Crissy Fraser rhinitis J45.40 Moderate persistent asthma, uncomplicated Z23 Encounter for immunization J44.9 Chronic obstructive pulmonary disease, unspecified Office Visit 02/23/2018 11:00a [facility] Chetan Camejo J30.89 Other allergic Crissy Fraser rhinitis J45.40 Moderate persistent asthma, uncomplicated J32.9 Chronic sinusitis, unspecified Office Visit 12/29/2017 11:00a [facility] Chetan Camejo J30.89 Other allergic Crissy Fraser rhinitis J32.9 Chronic sinusitis, unspecified J45.40 Moderate persistent asthma, uncomplicated Z23 Encounter for immunization J44.9 Chronic obstructive pulmonary disease, unspecified Office Visit 09/22/2017 4:00p [facility] Chetan Camejo J30.89 Other allergic Crissy Fraser rhinitis J45.40 Moderate persistent asthma, uncomplicated J32.9 Chronic sinusitis, unspecified Office Visit 07/27/2017 3:40p [facility] Barbara Langley J45.40 Moderate persistent Office [employer] asthma, uncomplicated J32.9 Chronic sinusitis, unspecified J30.89 Other allergic rhinitis Office Visit 07/14/2017 11:40a [facility] Chetan Camejo J30.89 Other allergic Crissy Fraser rhinitis J45.40 Moderate persistent asthma, uncomplicated J32.9 Chronic sinusitis, unspecified D84.9 Immunodeficiency, unspecified Z23 Encounter for immunization Office Visit 06/16/2017 10:40a [facility] Chetan Camejo J30.89 Other allergic Crissy Fraser rhinitis J45.40 Moderate persistent asthma, uncomplicated J32.9 Chronic sinusitis, unspecified J47.0 Bronchiectasis with acute lower respiratory infection Z23 Encounter for immunization Office Visit 06/08/2017 11:20a [facility] Mireya Z23 Encounter for Uldrich, [employer]C immunization J45.40 Moderate persistent asthma, uncomplicated J30.89 Other allergic rhinitis Office Visit 06/01/2017 1:40p [facility] Barbara Langley Z23 Encounter for [employer]-C immunization J47.9 Bronchiectasis, uncomplicated J01.90 Acute sinusitis, unspecified J45.40 Moderate persistent asthma, uncomplicated Office Visit 05/20/2017 4:20p [facility] Chetan Camejo J45.40 Moderate persistent Office FraserAlize gonsalesD. asthma, uncomplicated J47.9 Bronchiectasis, uncomplicated Z23 Encounter for immunization Office Visit 03/31/2017 11:40a [facility] Chetan Camejo J30.89 Other allergic Crissy Fraser rhinitis J45.40 Moderate persistent asthma, uncomplicated J47.9 Bronchiectasis, uncomplicated Z23 Encounter for immunization Office Visit 03/10/2017 2:40p [facility] Mireya Z23 Encounter for Uldrich, [employer]-C immunization J30.89 Other allergic rhinitis J32.9 Chronic sinusitis, unspecified J45.40 Moderate persistent asthma, uncomplicated J47.9 Bronchiectasis, uncomplicated Office Visit 01/27/2017 11:40a [facility] Chetan Camejo J30.89 Other allergic Crissy Fraser rhinitis J47.9 Bronchiectasis, uncomplicated J32.9 Chronic sinusitis, unspecified Z23 Encounter for immunization Office Visit 12/16/2016 2:20p [facility] Chetan Camejo J30.89 Other allergic Crissy Fraser rhinitis J32.9 Chronic sinusitis, unspecified J47.9 Bronchiectasis, uncomplicated J45.40 Moderate persistent asthma, uncomplicated Z23 Encounter for immunization Office Visit 12/11/2016 2:00p [facility] Mireya Uldrich, D84.9 Immunodeficiency, [employer]-C unspecified J30.89 Other allergic rhinitis J45.40 Moderate persistent asthma, uncomplicated J47.9 Bronchiectasis, uncomplicated Z23 Encounter for immunization Office Visit 10/21/2016 [facility] Chetan Camejo J47.9 Bronchiectasis, 11:20a Office Crissy Fraser uncomplicated J45.40 Moderate persistent asthma, uncomplicated D84.9 Immunodeficiency, unspecified J30.89 Other allergic rhinitis Z23 Encounter for immunization Z68.42 Body mass index (BMI) 45.0-49.9, adult Office Visit 09/24/2016 8:40a [facility] Chetan Fraser J01.90 Acute sinusitis, M.DBart unspecified J45.40 Moderate persistent asthma, uncomplicated D84.9 Immunodeficiency, unspecified J01.90 Acute sinusitis, unspecified J30.89 Other allergic rhinitis J30.89 Other allergic rhinitis D84.9 Immunodeficiency, unspecified Z23 Encounter for immunization Z68.42 Body mass index (BMI) 45.0-49.9, adult Office Visit 08/26/2016 11:40a [facility] Chetan Nguyễn01.90 Acute sinusitis, Crissy Fraser unspecified J30.89 Other allergic rhinitis J45.40 Moderate persistent asthma, uncomplicated J47.9 Bronchiectasis, uncomplicated Z23 Encounter for immunization Z68.42 Body mass index (BMI) 45.0-49.9, adult Office Visit 08/19/2016 11:20a [facility] Chetan Camejo J01.90 Acute sinusitis, Alize FraserD. unspecified J30.89 Other allergic rhinitis Z68.42 Body mass index (BMI) 45.0-49.9, adult Z23 Encounter for immunization Office Visit 07/09/2016 11:40a [facility] Chetan Fraser, J30.89 Other allergic M.D. rhinitis J45.40 Moderate persistent asthma, uncomplicated J47.9 Bronchiectasis, uncomplicated Z68.42 Body mass index (BMI) 45.0-49.9, adult Office Visit 05/07/2016 3:40p [facility] Chetan Camejo J45.40 Moderate persistent Fraser, M.D. asthma, uncomplicated J30.89 Other allergic rhinitis J47.9 Bronchiectasis, uncomplicated Z68.41 Body mass index (BMI) 40.0-44.9, adult Office Visit 02/20/2016 3:00p [facility] Gopi Nguyễn30.1 Allergic rhinitis M.D. due to pollen J45.30 Mild persistent asthma, uncomplicated Z23 Encounter for immunization Z68.43 Body mass index (BMI) 50-59.9 , adult Office Visit 12/12/2015 11:20a [facility] Gopi Nguyễn30.1 Allergic rhinitis M.D. due to pollen J45.30 Mild persistent asthma, uncomplicated J32.8 Other chronic sinusitis Z23 Encounter for immunization Z68.41 Body mass index (BMI) 40.0-44.9, adult Office Visit 08/15/2015 3:20p [facility] Catracho Maria J45.40 Moderate persistent M.D. asthma, uncomplicated Z68.36 Body mass index (BMI) 36.0-36.9, adult Z23 Encounter for immunization J45.40 Moderate persistent asthma, uncomplicated J30.1 Allergic rhinitis due to pollen Office Visit 06/13/2015 11:20a [facility] Catrcaho Maria Z68.39 Body mass index M.D. (BMI) 39.0-39.9, adult Z23 Encounter for immunization J32.8 Other chronic sinusitis J45.30 Mild persistent asthma, uncomplicated Office Visit 12/13/2014 8:40a [facility] Catracho Maria M.D. 786.2 Cough 493.00 Asthma Extrinsic Unspecified 473.8 Sinusitis Chronic Other V85.38 Body Mass Index 38.0-38.9 Adult V04.81 Need For Prophylactic Vaccination & Inoculation/Influenza 380.22 Otitis Externa Other Acute Office Visit 07/26/2014 11:00a [facility] Catracho Maria M.D. 786.2 Cough 493.00 Asthma Extrinsic Unspecified 748.61 Bronchiectasis Congenital 473.8 Sinusitis Chronic Other Office Visit 12/28/2013 11:40a [facility] Catracho Maria M.D. 786.2 Cough 748.61 Bronchiectasis Congenital 477.8 Rhinitis Allergic Due To Other Allergen Office Visit 09/19/2013 11:00a [facility] Chetan Camejo 493.00 Asthma Extrinsic Crissy Fraser Unspecified 110.5 Dermatophytosis Body 461.0 Sinusitis Acute Maxillary 564.00 Constipation Unspecified Office Visit 06/29/2013 3:00p [facility] Samantha 493.00 Asthma Extrinsic Lisa, [employer]BC Unspecified 477.8 Rhinitis Allergic Due To Other Allergen 477.0 Rhinitis Allergic Due To Pollen 473.9 Sinusitis Chronic Unspec Office Visit 06/15/2013 3:20p [facility] Catracho Maria, 493.00 Asthma Extrinsic M.D. Unspecified 477.8 Rhinitis Allergic Due To Other Allergen 473.9 Sinusitis Chronic Unspec Office Visit 06/06/2013 11:00a [facility] Samantha 493.00 Asthma Extrinsic Lisa, [employer]-BC Unspecified 477.8 Rhinitis Allergic Due To Other Allergen 477.0 Rhinitis Allergic Due To Pollen Office Visit 05/11/2013 10:00a [facility] Samantha 493.00 Asthma Extrinsic Lisa, [employer]-BC Unspecified 477.8 Rhinitis Allergic Due To Other Allergen 477.0 Rhinitis Allergic Due To Pollen Office Visit 04/27/2013 1:40p [facility] Samantha 493.00 Asthma Extrinsic Lisa, [employer]-BC Unspecified 477.8 Rhinitis Allergic Due To Other Allergen 477.0 Rhinitis Allergic Due To Pollen Office Visit 03/30/2013 10:20a [facility] Samantha 493.00 Asthma Extrinsic Lisa, [employer]-BC Unspecified 477.8 Rhinitis Allergic Due To Other Allergen 477.0 Rhinitis Allergic Due To Pollen Office Visit 02/02/2013 11:00a [facility] Catracho Maria M.D. 786.2 Cough 477.8 Rhinitis Allergic Due To Other Allergen 493.00 Asthma Extrinsic Unspecified Office Visit 01/12/2013 11:00a [facility] Catracho Maria M.D. 786.2 Cough 477.8 Rhinitis Allergic Due To Other Allergen Office Visit 12/01/2012 4:00p [facility] Joy Abbott 493.00 Asthma Extrinsic Katiuska, [employer]-C Unspecified 477.0 Rhinitis Allergic Due To Pollen 477.8 Rhinitis Allergic Due To Other Allergen Office Visit 11/03/2012 4:20p [facility] Catracho aMria, 493.00 Asthma Extrinsic M.D. Unspecified Office Visit 09/15/2012 9:40a [facility] Joy Abbott 493.00 Asthma Extrinsic Katiuska, Unspecified [employer]-C 473.9 Sinusitis Chronic Unspec Office Visit 08/11/2012 11:20a [facility] Catracho Maria, 493.00 Asthma Extrinsic M.D. Unspecified Office Visit 08/04/2012 8:40a [facility] Catracho Maria, 461.9 Sinusitis Acute M.D. Unspec Office Visit 06/09/2012 3:20p [facility] Catracho Maria, 493.90 Asthma Unspec W/O M.D. Status Asthmaticus 473.9 Sinusitis Chronic Unspec Office Visit 05/31/2012 9:20a [facility] Joy Abbott 465.8 Upper Respiratory Katiuska, [employer]-C Infections Acute Other Multiple Sites 493.00 Asthma Extrinsic Unspecified Office Visit 04/28/2012 8:30a [facility] Catracho Maria, 477.0 Rhinitis Allergic M.D. Due To Pollen 493.00 Asthma Extrinsic Unspecified Office Visit 03/31/2012 2:00p [facility] Joy LBart 493.00 Asthma Extrinsic Katiuska, [employer]-C Unspecified 708.1 Urticaria Idiopathic 477.0 Rhinitis Allergic Due To Pollen Office Visit 02/11/2012 8:40a [facility] Catracho Maria, 786.2 Cough M.D. Office Visit 01/28/2012 11:00a [facility] Catracho Maria, 461.9 Sinusitis Acute M.D. Unspec Office Visit 01/14/2012 3:40p [facility] Catracho Maria, 786.2 Cough M.D. 493.90 Asthma Unspec W/O Status Asthmaticus 477.0 Rhinitis Allergic Due To Pollen 477.8 Rhinitis Allergic Due To Other Allergen Office Visit 05/28/2011 11:40a [facility] Catracho Maria M.D. 786.2 Cough 493.90 Asthma Unspec W/O Status Asthmaticus 477.0 Rhinitis Allergic Due To Pollen 477.8 Rhinitis Allergic Due To Other Allergen Office Visit 03/05/2011 8:40a [facility] Bernabe Aviles M.D. 786.2 Cough 493.90 Asthma Unspec W/O Status Asthmaticus 477.0 Rhinitis Allergic Due To Pollen 477.8 Rhinitis Allergic Due To Other Allergen Office Visit 01/29/2011 11:00a [facility] Catracho Maria M.D. 786.2 Cough 493.90 Asthma Unspec W/O Status Asthmaticus 477.0 Rhinitis Allergic Due To Pollen 477.8 Rhinitis Allergic Due To Other Allergen Office Visit 01/06/2011 2:20p [facility] Nikki Crandall M.D. 786.2 Cough 493.90 Asthma Unspec W/O Status Asthmaticus 477.0 Rhinitis Allergic Due To Pollen 477.8 Rhinitis Allergic Due To Other Allergen Plan of Treatment Future Appointment(s):09/13/2018 3:00 pm - [facility] at [facility]10/19/2018 3:20 pm - Chetan Fraser M.D. at [facility]
--- OUTSIDE RECORDS SUMMARY | 2018-09-04 11:26 | XMS REPORT | Continuity of Care Document ---
:1970 External Reference #:[id number] Author Name Chetan Fraser M.D. Address [address] [place] [address] Care Team Providers Name Role Phone Devon Baxter M.D. Care Team Information Campground Manager Unavailable Hunter Johnson M.D. Primary Care Physician Unavailable Payers Date Identification Numbers Payment Provider Subscriber Effective: 2002 Policy Number: [id number] Medicare-National Emelyn Noel GVT.Sys PayID: [id number] [address] [place] [address] Policy Number: [id number] [facility] Ins Id Emelyn Noel Group Number: [id number] [employer] Group Name: Vidya Vang [address] PayID: [id number] [place] [address] Policy Number: [id number] Medicaid-Adult Emelyn Noel Group Name: 2 1 [address] [facility] PayID: [id number] [place] [address] Advance Directives Description No Information Available Problems [...] Boyfriend Home Environment Does not use air electrotype caster Home Environment Has a window air conditioner [...] in the city Home Environment Water Source: [facility] Smoke-Free Home is smoke-free Pets None 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 HCL s By Mouth Every Fraser, 8 Hours M.DBart Xopenex HFA 07/20 Active Aerosol 45mcg/Act 15gm 2 puffs J45.30 Mireya /2019 inhalation Uldrich, every 6 hours STUDIO CONTROL OPERATOR-C as needed or 15 minutes prior to exercise Qvar Redihaler 07/19 Active Aerosol 80mcg/Act 8.7un inhale two J45.30 its puffs by mouth Uldrich, twice a day STUDIO CONTROL OPERATOR-C Metronidazole 06/30 Active Gel 0.75% 210un Use 1 its Applicatorful Evelio, Vaginally M.DBart Every Day X 5 Days Guaifenesin ER 06/21 Active Tablets ER 1200mg 90tab 1 by mouth 12HR s every 12 hours Uldreleanor, STUDIO CONTROL OPERATOR-C Anoro Ellipta 05/25 Active Aerosol 62.5-25mc 30uni [...] 03/10 Active Nebulizer (2.5mg/3M 1650u 1 neb [facility] L) 0.083% nits inhalation Uldrich, every 4 hours STUDIO CONTROL OPERATOR-C as needed Qnasl 03/10 Active Aerosol 80mcg/Act 8.700 1-2 sprays in [facility] gm each nostril Uldrich, daily STUDIO CONTROL OPERATOR-C Benadryl Active Capsules 25mg 60cap two tablets as Unknown s needed every 4-6 hrs. Tramadol HCL Active Tablets 50mg as needed Pendleton, Crissy Osorio Omeprazole Active Capsules 40mg once a day Triamcinolone Active Cream 0.1% Shena To Itchy Unknown Acet Rash One To Two Times Daily prn Ondansetron Active Tablets 4mg Pendleton, Dispers Crissy Osorio Mucinex Active Tablets ER 600mg 12HR Augmentin Active Tablets 875-125mg 1 tab by mouth q12 Lisinopril Active Tablets 5mg TK 1 T PO D Unknown /0000 Medications Administered in Office Medication Date Status Form Strength Qnty SIG Indications Ordering Provider Biologic Agent 08/16/ Administered Injection Mireya Administration 2018 Uldrich, STUDIO CONTROL OPERATOR-C Therapeutic, 08/16/ Administered Injection Vy M Prophylactic Or 2018 Franci Diagnostic M.D. Injection Subq/Im Therapeutic, 07/19/ Administered Injection Nikki Prophylactic Or 2018 Mica Crandall M.D. Injection Subq/Im Therapeutic, 07/19/ Administered Injection Mireya Prophylactic Or 2018 Ulich, Diagnostic STUDIO CONTROL OPERATOR-C Injection Subq/Im Therapeutic, 06/21/ Administered Injection Mireya Prophylactic Or 2018 Ulich, Diagnostic STUDIO CONTROL OPERATOR-C Injection Subq/Im Biologic Agent 05/27/ Administered Injection Mireay Administration 2018 Uldrich, STUDIO CONTROL OPERATOR-C Therapeutic, 05/27/ Administered Injection Vy M Prophylactic Or 2018 Franci Diagnostic M.D. Injection Subq/Im Biologic Agent 04/19/ Administered Injection Mireya Administration 2017 Uldrich, STUDIO CONTROL OPERATOR-C Biologic Agent 03/22/ Administered Injection Mireya Administration 2017 Uldrich, STUDIO CONTROL OPERATOR-C Therapeutic, 03/22/ Administered Injection Vy M Prophylactic Or 2017 Franci Diagnostic M.D. Injection Subq/Im Therapeutic, 02/22/ Administered Injection Mireya Prophylactic Or 2017 Brant Diagnostic STUDIO CONTROL OPERATOR-C Injection Subq/Im Therapeutic, 01/18/ Administered Injection Nikki Prophylactic Or 2017 Mica Crandall M.D. Injection Subq/Im Therapeutic, 01/18/ Administered Injection Mireya Prophylactic Or 2017 Brant, Diagnostic STUDIO CONTROL OPERATOR-C Injection Subq/Im Injection 01/18/ Administered Injection Allergy 2018 Injection Therapeutic, 12/22/ Administered Injection Vy M Prophylactic Or 2017 Franci Diagnostic M.D. Injection Subq/Im Injection 12/22/ Administered Injection Allergy 2018 Injection Biologic Agent 11/18/ Administered Injection Mireya Administration 2017 Uldrich, STUDIO CONTROL OPERATOR-C Therapeutic, 11/18/ Administered Injection Nikki Prophylactic Or 2017 Mica Crandall M.D. Injection Subq/Im Injection 11/18/ Administered Injection Allergy 2018 Injection Biologic Agent 10/21/ Administered Injection Mireya Administration 2017 Uldrich, STUDIO CONTROL OPERATOR-C Therapeutic, 10/21/ Administered Injection Mireya Prophylactic Or 2018 Brant Diagnostic STUDIO CONTROL OPERATOR-C Injection Subq/Im Injection 10/21/ Administered Injection Allergy 2018 Injection Therapeutic, 09/27/ Administered Injection Nikki Prophylactic Or 2018 Mica Crandall M.DBart Injection Subq/Im Therapeutic, 09/27/ Administered Injection Mireya Prophylactic Or 2017 Brant Diagnostic STUDIO CONTROL OPERATOR-C Injection Subq/Im Injection 09/27/ Administered Injection Allergy 2018 Injection Injection 08/31/ Administered Injection Allergy 2018 Injection Biologic Agent 08/30/ Administered Injection Mireya Administration 2017 Brant, STUDIO CONTROL OPERATOR-C Therapeutic, 08/30/ Administered Injection Nikki Prophylactic Or 2017 Mica Crandall.DBart Injection Subq/Im Immunizations CPT Code Status Date Vaccine Lot # 03329 Given 03/24/2013 Influenza Vaccine 49317 Given Unknown Pneumococcal Vaccine 88234 Given Unknown Pneumococcal Vaccine Vital Signs Date [...] H/L Range Note CBC Auto Diff 11/03/2017 [facility] White Blood 8.6 10^3/uL N 3.5-10.[address] [place] [address] [phone] Red Blood Count 4.47 10^6/uL N 4.00-5.40 [...] Blood Cells % 0.1 CBC Auto 07/19/2017 [facility] White Blood 11.4 10^3/uL High 3.5-10.[address] [place] [address] [phone] Red Blood Count 4.48 10^6/uL N 4.0-5.4 [...] Blood Cells % 0 T&B Cell 07/19/2017 [facility] Absolute 3.58 Abnormal 0.82- 2.[address] CD45 Count thou/[place] [address] [phone] Percent CD3 Cells (T Cells) 84 % 58-86 Percent CD19 Cells (B Cells) 13 % 6-24 % CD16+CD56 Cells (NK Cells) 2 % Abnormal 4-28 Percent CD4 Cell ([place] Cell) 58 % 32-64 Percent CD8 Cells (Supp Cell) 26 % 13-40 Absolute CD3 Count (T Cells) 3001 cells/L Abnormal 550-2202 Absolute CD19 Count (B Cells) 474 cells/L Abnormal 70-409 Absolute CD16+CD56 Count (NK) 64 cells/L 59-513 Absolute CD4 Count (Help Cell) 2073 cells/L Abnormal 365-1437 Absolute CD8 Count (Supp Cell) 942 cells/L Abnormal 145-846 T-[place]/Suppressor Ratio 2.2 >=0.9 T B Cell Comment See Comment 1 Laboratory test 07/19/2017 [facility] Immunoglobulin E 11.6 kU/ L <=214 [address] (Ige) [place], [place] [id number] [phone] Tetanus Toxoid 07/19/2017 [facility] Tetanus Toxoid IgG Positive 3 Igg Antibody,S [address] [place] [address] [phone] Tetanus Toxoid IgG Value 0.92 IU/mL 4 HIV 1/2 AB 07/19/2017 [facility] HIV 1 2 Nonreactive Nonreactive [address] [place] [address] [phone] Laboratory test 07/19/2017 [facility] Miscellaneous See Comment [address] Test [place], [place] [address] [phone] Immunoglobulins 07/19/2017 [facility] Immunoglobulin 799 mg/dL 767 - 1590 7 Serum Quant [address] [place] [address] [phone] Immunoglobulin M 94 mg/dL 37 - 286 Immunoglobulin A 163 mg/dL 61 - 356 Diptheria Igg 07/19/2017 [facility] Diphtheria IgG Positive [address] [place] [address] [phone] Diphtheria IgG Value 0.44 IU/mL 9 CBC W/Auto 10/20/2016 [facility] White Blood 11.3 10^3/uL High 3.5-10.8 Diff Cancer [address] [place] [address] [phone] Red Blood Count 4.72 10^6/uL N 4.0-5.4 [...] Cells % 0.1 N S.Pneumoniae Igg 10/20/2016 [facility] S. pneumoniae 17.0 g/ mL N >=2.3 AB [address] Type 1 [place] [address] [phone] S. pneumoniae Type 2 IgG AB 6.4 [...] g/mL N >=1.7 10 Laboratory test 10/20/2016 [facility] Immunoglobulin G 1170 N 767 - [address] [facility] (Igg) mg/dL 1590 [place] [address] [phone] Immunoglobulin M (Igm) 140 mg/dL N 37 - 286 12 Immunoglobulin A (Iga) 186 mg/dL N 61 - 356 13 Immunoglobulin E (Ige) 34.1 kU/L N <=214 14 Laboratory test 08/27/2015 [facility] Immunoglobulin E 58.4 kU/ L N <=[address] [facility] (Ige) [place] [address] [phone] 1 RESULT: Reviewed by: Paz Rutledge M.D., D. , D(JUANJO) ADDITIONAL INFORMATION Reference values implemented September 13, 2012. This test was developed using an analyte specific reagent. Its performance characteristics were determined by [facility] in a manner consistent with CLIA requirements. This test has not been cleared or approved by the U.S. Food and Drug Administration. Test Performed by: [facility] [place] [address] [place] [address] 2 Test Performed by: [facility] [address] [place] [address] 3 REFERENCE VALUE Vaccinated: Positive (>=0.01 IU/mL) Unvaccinated: Negative (< 0.01 IU/mL) 4 ADDITIONAL INFORMATION This test was developed and its performance characteristics determined by [facility] in a manner consistent with CLIA requirements. This test has not been cleared or approved by the U.S. Food and Drug Administration. Test Performed by: [facility] [address] [place] [address] 5 It is recognized that currently available [...] developed and its performance characteristics determined by [facility]. It has not been cleared or approved by the U.S. Food and Drug Administration. Test Performed by: [facility], [facility] [address] [place] [address] 7 Test Performed by: [facility] [address] [address] 8 REFERENCE VALUE Vaccinated: Positive (>=0.01 IU/mL) Unvaccinated: Negative (< 0.01 IU/mL) 9 Test Performed by: [facility] [address] [place] [address] 10 Either of the two following conditions [...] developed and its performance characteristics determined by [facility] in a manner consistent with CLIA requirements. This test has not been cleared or approved by the U.S. Food and Drug Administration. Test Performed by: [place] [address] 11 Test Performed by: [place] [address] 12 Test Performed by: [address] [address] 13 Test Performed by: [address] [address] 14 Test Performed by: [address] [address] 15 Test Performed by: [place] [address] Vegetable Handler: Efrain Wilkinson II, M.D., Ph.D. Procedures Date Code Description Status 08/16/2018 87869 Biologic Agent Administration Completed 08/16/2018 64572 Therapeutic, Prophylactic Or Diagnostic Injection Subq/Im Completed 07/19/2018 23506 Therapeutic, Prophylactic Or Diagnostic Injection Subq/Im Completed 07/19/2018 68519 Therapeutic, Prophylactic Or Diagnostic Injection Subq/Im Completed 06/21/2018 90572 Therapeutic, Prophylactic Or Diagnostic Injection Subq/Im Completed 05/27/2018 02420 Biologic Agent Administration Completed 05/27/2018 71291 Therapeutic, Prophylactic Or Diagnostic Injection Subq/Im Completed 05/27/2018 13217 Nitric Oxide Gas Determination Completed 04/19/2018 74725 Nitric Oxide Gas Determination Completed 04/19/2018 67792 Biologic Agent Administration Completed 03/22/2018 12489 Biologic Agent Administration Completed 03/22/2018 09330 Therapeutic, Prophylactic Or Diagnostic Injection Subq/Im Completed 02/22/2018 83142 Therapeutic, Prophylactic Or Diagnostic Injection Subq/Im Completed 01/18/2018 93851 Therapeutic, Prophylactic Or Diagnostic Injection Subq/Im Completed 01/18/2018 45898 Therapeutic, Prophylactic Or Diagnostic Injection Subq/Im Completed 01/18/2018 99519 Injection Completed 12/29/2017 79921 Pre PFT Completed 12/22/2017 56714 Injection Completed 12/22/2017 00475 Therapeutic, Prophylactic Or Diagnostic Injection Subq/Im Completed 11/18/2017 37494 Biologic Agent Administration Completed 11/18/2017 17756 Therapeutic, Prophylactic Or Diagnostic Injection Subq/Im Completed 11/18/2017 76500 Injection Completed 10/21/2017 36636 Biologic Agent Administration Completed 10/21/2017 07380 Therapeutic, Prophylactic Or Diagnostic Injection Subq/Im Completed 10/21/2017 78064 Injection Completed 10/21/2017 00129 Pre PFT Completed 10/21/2017 59866 Pre PFT Completed 09/27/2017 22948 Injection Completed 09/27/2017 58505 Therapeutic, Prophylactic Or Diagnostic Injection Subq/Im Completed 09/27/2017 76373 Therapeutic, Prophylactic Or Diagnostic Injection Subq/Im Completed 09/22/2017 19421 Pre PFT Completed 08/31/2017 64108 Injection Completed 08/30/2017 61446 Biologic Agent Administration Completed 08/30/2017 67538 Therapeutic, Prophylactic Or Diagnostic Injection Subq/Im Completed 08/30/2017 38391 Pre PFT Completed 07/27/2017 29370 Ippb Completed 07/27/2017 36577 Ippb Completed 06/08/2017 83569 Ippb Completed 06/01/2017 73856 Ippb Completed 06/01/2017 90763 Ippb Completed 06/01/2017 98754 Pre PFT Completed 06/01/2017 96084 Pre PFT Completed 03/10/2017 29722 Pre PFT Completed 03/10/2017 86142 Pre PFT Completed 12/11/2016 52434 Ippb Completed 12/11/2016 29351 Ippb Completed 09/24/2016 09118 Pre PFT Completed 05/07/2016 63268 Pre PFT Completed 12/12/2015 18963 Pre PFT Completed 08/15/2015 26231 Pre PFT Completed 06/13/2015 71391 Pre PFT Completed 09/19/2013 58208 Pre PFT Completed 05/11/2013 83607 Oxygen Level - Pulse Oximiter Completed 04/27/2013 52885 Oxygen Level - Pulse Oximiter Completed 02/23/2013 55032 Oxygen Level - Pulse Oximiter Completed 02/23/2013 95243 Pulmonary Function Test Completed 02/02/2013 13070 Oxygen Level - Pulse Oximiter Completed 01/12/2013 72869 Oxygen Level - Pulse Oximiter Completed 11/03/2012 86245 Oxygen Level - Pulse Oximiter Completed 05/05/2012 50703 Oxygen Level - Pulse Oximiter Completed 05/05/2012 06842 Pulmonary Function Test Completed 07/30/2011 71312 Extract 1-10 Completed 07/21/2011 88016 Oxygen Level - Pulse Oximiter Completed 07/02/2011 23487 Skin Tests Id Completed 06/16/2011 88460 Oxygen Level - Pulse Oximiter Completed 06/16/2011 92499 Ippb Completed 06/09/2011 27138 Oxygen Level - Pulse Oximiter Completed 06/09/2011 80248 Oxygen Level - Pulse Oximiter Completed 06/09/2011 49050 Ippb Completed 06/04/2011 46910 Skin Test Scratch # Of Units ____ Completed 05/28/2011 16441 Pulmonary Function Test Completed Encounters Type Date [...] Chronic sinusitis, unspecified Office Visit 07/27/2017 3:40p [place] Barbara Langley J45.40 Moderate persistent Office STUDIO CONTROL OPERATOR-C asthma, uncomplicated J32.9 Chronic sinusitis, unspecified J30.89 Other allergic rhinitis Office Visit 07/14/2017 11:40a [facility] Cehtan Camejo J30.89 Other allergic Crissy Fraser rhinitis J45.40 Moderate persistent asthma, uncomplicated J32.9 Chronic sinusitis, unspecified D84.9 Immunodeficiency, unspecified Z23 Encounter for immunization Office Visit 06/16/2017 10:40a [facility] Chetan Camejo J30.89 Other allergic Crissy Fraser rhinitis J45.40 Moderate persistent asthma, uncomplicated J32.9 Chronic sinusitis, unspecified J47.0 Bronchiectasis with acute lower respiratory infection Z23 Encounter for immunization Office Visit 06/08/2017 11:20a [facility] Mireya Z23 Encounter for Uldrich, STUDIO CONTROL OPERATOR-C immunization J45.40 Moderate persistent asthma, uncomplicated J30.89 Other allergic rhinitis Office Visit 06/01/2017 1:40p [facility] Barbara Langley Z23 Encounter for STUDIO CONTROL OPERATOR-C immunization J47.9 Bronchiectasis, uncomplicated J01.90 Acute sinusitis, unspecified J45.40 Moderate persistent asthma, uncomplicated Office Visit 05/20/2017 4:20p [place] Chetan Camejo J45.40 Moderate persistent Office FraserAlize gonsalesD. asthma, uncomplicated J47.9 Bronchiectasis, uncomplicated Z23 Encounter for immunization Office Visit 03/31/2017 11:40a [facility] Chetan Camejo J30.89 Other allergic Crissy Fraser rhinitis J45.40 Moderate persistent asthma, uncomplicated J47.9 Bronchiectasis, uncomplicated Z23 Encounter for immunization Office Visit 03/10/2017 2:40p [facility] Mireya Z23 Encounter for Uldrich, STUDIO CONTROL OPERATOR-C immunization J30.89 Other allergic rhinitis J32.9 Chronic sinusitis, unspecified J45.40 Moderate persistent asthma, uncomplicated J47.9 Bronchiectasis, uncomplicated Office Visit 01/27/2017 11:40a [facility] Chetan Camejo J30.89 Other allergic Crissy Fraser rhinitis J47.9 Bronchiectasis, uncomplicated J32.9 Chronic sinusitis, unspecified Z23 Encounter for immunization Office Visit 12/16/2016 2:20p [facility] Chetan Camejo J30.89 Other allergic Crissy Fraser rhinitis J32.9 Chronic sinusitis, unspecified J47.9 Bronchiectasis, uncomplicated J45.40 Moderate persistent asthma, uncomplicated Z23 Encounter for immunization Office Visit 12/11/2016 2:00p [place] Mireya Uldrich, D84.9 Immunodeficiency, STUDIO CONTROL OPERATOR-C unspecified J30.89 Other allergic rhinitis J45.40 Moderate persistent asthma, uncomplicated J47.9 Bronchiectasis, uncomplicated Z23 Encounter for immunization Office Visit 10/21/2016 [facility] Chetan Camejo J47.9 Bronchiectasis, 11:20a Office Crissy Fraser uncomplicated J45.40 Moderate persistent asthma, uncomplicated D84.9 Immunodeficiency, unspecified J30.89 Other allergic rhinitis Z23 Encounter for immunization Z68.42 Body mass index (BMI) 45.0-49.9, adult Office Visit 09/24/2016 8:40a [place] Chetan Fraser J01.90 Acute sinusitis, M.DBart unspecified J45.40 Moderate persistent asthma, uncomplicated D84.9 Immunodeficiency, unspecified J01.90 Acute sinusitis, unspecified J30.89 Other allergic rhinitis J30.89 Other allergic rhinitis D84.9 Immunodeficiency, unspecified Z23 Encounter for immunization Z68.42 Body mass index (BMI) 45.0-49.9, adult Office Visit 08/26/2016 11:40a [facility] Chetan Nguyễn01.90 Acute sinusitis, Crissy Fraser unspecified J30.89 Other allergic rhinitis J45.40 Moderate persistent asthma, uncomplicated J47.9 Bronchiectasis, uncomplicated Z23 Encounter for immunization Z68.42 Body mass index (BMI) 45.0-49.9, adult Office Visit 08/19/2016 11:20a [facility] Chetan Camejo J01.90 Acute sinusitis, Alize FraserD. unspecified J30.89 Other allergic rhinitis Z68.42 Body mass index (BMI) 45.0-49.9, adult Z23 Encounter for immunization Office Visit 07/09/2016 11:40a [place] Chetan Fraser, J30.89 Other allergic M.D. rhinitis J45.40 Moderate persistent asthma, uncomplicated J47.9 Bronchiectasis, uncomplicated Z68.42 Body mass index (BMI) 45.0-49.9, adult Office Visit 05/07/2016 3:40p [place] Chetan Camejo J45.40 Moderate persistent Fraser, M.D. asthma, uncomplicated J30.89 Other allergic rhinitis J47.9 Bronchiectasis, uncomplicated Z68.41 Body mass index (BMI) 40.0-44.9, adult Office Visit 02/20/2016 3:00p [facility] Gopi Nguyễn30.1 Allergic rhinitis M.D. due to pollen J45.30 Mild persistent asthma, uncomplicated Z23 Encounter for immunization Z68.43 Body mass index (BMI) 50-59.9 , adult Office Visit 12/12/2015 11:20a [facility] Gopi Nguyễn30.1 Allergic rhinitis M.D. due to pollen J45.30 Mild persistent asthma, uncomplicated J32.8 Other chronic sinusitis Z23 Encounter for immunization Z68.41 Body mass index (BMI) 40.0-44.9, adult Office Visit 08/15/2015 3:20p [facility] Catracho Maria J45.40 Moderate persistent M.D. asthma, uncomplicated Z68.36 Body mass index (BMI) 36.0-36.9, adult Z23 Encounter for immunization J45.40 Moderate persistent asthma, uncomplicated J30.1 Allergic rhinitis due to pollen Office Visit 06/13/2015 11:20a [facility] Catracho Maria Z68.39 Body mass index M.D. (BMI) 39.0-39.9, adult Z23 Encounter for immunization J32.8 Other chronic sinusitis J45.30 Mild persistent asthma, uncomplicated Office Visit 12/13/2014 8:40a [facility] Catracho Maria M.D. 786.2 Cough 493.00 Asthma Extrinsic Unspecified 473.8 Sinusitis Chronic Other V85.38 Body Mass Index 38.0-38.9 Adult V04.81 Need For Prophylactic Vaccination & Inoculation/Influenza 380.22 Otitis Externa Other Acute Office Visit 07/26/2014 11:00a [facility] Catracho Maria M.D. 786.2 Cough 493.00 Asthma Extrinsic Unspecified 748.61 Bronchiectasis Congenital 473.8 Sinusitis Chronic Other Office Visit 12/28/2013 11:40a [facility] Catracho Maria M.D. 786.2 Cough 748.61 Bronchiectasis Congenital 477.8 Rhinitis Allergic Due To Other Allergen Office Visit 09/19/2013 11:00a [facility] Chetan Camejo 493.00 Asthma Extrinsic Crissy Fraser Unspecified 110.5 Dermatophytosis Body 461.0 Sinusitis Acute Maxillary 564.00 Constipation Unspecified Office Visit 06/29/2013 3:00p [facility] Samantha 493.00 Asthma Extrinsic Lisa, STUDIO CONTROL OPERATOR-BC Unspecified 477.8 Rhinitis Allergic Due To Other Allergen 477.0 Rhinitis Allergic Due To Pollen 473.9 Sinusitis Chronic Unspec Office Visit 06/15/2013 3:20p [facility] Catracho Maria, 493.00 Asthma Extrinsic M.D. Unspecified 477.8 Rhinitis Allergic Due To Other Allergen 473.9 Sinusitis Chronic Unspec Office Visit 06/06/2013 11:00a [facility] Samantha 493.00 Asthma Extrinsic Lisa, STUDIO CONTROL OPERATOR-BC Unspecified 477.8 Rhinitis Allergic Due To Other Allergen 477.0 Rhinitis Allergic Due To Pollen Office Visit 05/11/2013 10:00a [facility] Samantha 493.00 Asthma Extrinsic Lisa, STUDIO CONTROL OPERATOR-BC Unspecified 477.8 Rhinitis Allergic Due To Other Allergen 477.0 Rhinitis Allergic Due To Pollen Office Visit 04/27/2013 1:40p [facility] Samantha 493.00 Asthma Extrinsic Lisa, STUDIO CONTROL OPERATOR-BC Unspecified 477.8 Rhinitis Allergic Due To Other Allergen 477.0 Rhinitis Allergic Due To Pollen Office Visit 03/30/2013 10:20a [facility] Samantha 493.00 Asthma Extrinsic Lisa, STUDIO CONTROL OPERATOR-BC Unspecified 477.8 Rhinitis Allergic Due To Other Allergen 477.0 Rhinitis Allergic Due To Pollen Office Visit 02/02/2013 11:00a [facility] Catracho Maria M.D. 786.2 Cough 477.8 Rhinitis Allergic Due To Other Allergen 493.00 Asthma Extrinsic Unspecified Office Visit 01/12/2013 11:00a [facility] Catracho Maria M.D. 786.2 Cough 477.8 Rhinitis Allergic Due To Other Allergen Office Visit 12/01/2012 4:00p [facility] Joy Abbott 493.00 Asthma Extrinsic Katiuska, STUDIO CONTROL OPERATOR-C Unspecified 477.0 Rhinitis Allergic Due To Pollen 477.8 Rhinitis Allergic Due To Other Allergen Office Visit 11/03/2012 4:20p [facility] Catracho Maria, 493.00 Asthma Extrinsic M.D. Unspecified Office Visit 09/15/2012 9:40a [facility] Joy Abbott 493.00 Asthma Extrinsic Katiuska, Unspecified STUDIO CONTROL OPERATOR-C 473.9 Sinusitis Chronic Unspec Office Visit 08/11/2012 11:20a [facility] Catracho Maria, 493.00 Asthma Extrinsic M.D. Unspecified Office Visit 08/04/2012 8:40a [facility] Catracho Maria, 461.9 Sinusitis Acute M.D. Unspec Office Visit 06/09/2012 3:20p [facility] Catracho Maria, 493.90 Asthma Unspec W/O M.D. Status Asthmaticus 473.9 Sinusitis Chronic Unspec Office Visit 05/31/2012 9:20a [facility] Joy Abbott 465.8 Upper Respiratory Katiuska, STUDIO CONTROL OPERATOR-C Infections Acute Other Multiple Sites 493.00 Asthma Extrinsic Unspecified Office Visit 04/28/2012 8:30a [facility] Catracho Maria, 477.0 Rhinitis Allergic M.D. Due To Pollen 493.00 Asthma Extrinsic Unspecified Office Visit 03/31/2012 2:00p [facility] Joy LBart 493.00 Asthma Extrinsic [place], STUDIO CONTROL OPERATOR-C Unspecified 708.1 Urticaria Idiopathic 477.0 Rhinitis Allergic Due To Pollen Office Visit 02/11/2012 8:40a [facility] Catracho Maria, 786.2 Cough M.D. Office Visit 01/28/2012 11:00a [facility] Catracho Khan, 461.9 Sinusitis Acute M.D. Unspec Office Visit 01/14/2012 3:40p [facility] Catracho Maria, 786.2 Cough M.D. 493.90 Asthma Unspec W/O Status Asthmaticus 477.0 Rhinitis Allergic Due To Pollen 477.8 Rhinitis Allergic Due To Other Allergen Office Visit 05/28/2011 11:40a [facility] Catracho Maria M.D. 786.2 Cough 493.90 Asthma Unspec W/O Status Asthmaticus 477.0 Rhinitis Allergic Due To Pollen 477.8 Rhinitis Allergic Due To Other Allergen Office Visit 03/05/2011 8:40a [facility] Bernabe Aviles M.D. 786.2 Cough 493.90 Asthma Unspec W/O Status Asthmaticus 477.0 Rhinitis Allergic Due To Pollen 477.8 Rhinitis Allergic Due To Other Allergen Office Visit 01/29/2011 11:00a [facility] Catracho Maria M.D. 786.2 Cough 493.90 Asthma Unspec W/O Status Asthmaticus 477.0 Rhinitis Allergic Due To Pollen 477.8 Rhinitis Allergic Due To Other Allergen Office Visit 01/06/2011 2:20p [facility] Nikki Crandall M.D. 786.2 Cough 493.90 Asthma Unspec W/O Status Asthmaticus 477.0 Rhinitis Allergic Due To Pollen 477.8 Rhinitis Allergic Due To Other Allergen Plan of Treatment Future Appointment(s):09/13/2018 3:00 pm - [id number]/19/2018 3:20 pm - Chetan Fraser M.D. at [facility] [place]07/27/2018 - Chetan Fraser M.D.Z23 Encounter for immunizationComments:Our assessments and recommendations were discussed with the patient or patient's family who expressed understanding and agreement with the treatment plan.Recommendations:Patient to discuss an influenza vaccination with their primary-care provider.
--- OUTSIDE RECORDS SUMMARY | 2018-09-04 11:27 | XMS REPORT | Continuity of Care Document ---
:1970 External Reference #:[id number] Author Name Ashley Hall MD Address [address] [place] [address] Care Team Providers Name Role Phone Devon Baxter M.D. 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 Primary Care Physician Unavailable Payers Date Identification Numbers Payment Provider Subscriber Effective: 2002 Policy Number: [id number] Medicare-National Emelyn Noel GVT.Sys PayID: [id number] [address] [place] [address] Policy [address]: [id number] 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 s By Mouth Every Fraser, 8 Hours M.D. Xopenex HFA 07/20 Active Aerosol 45mcg/Act 15gm 2 puffs J45.30 Mireya /2019 inhalation Uldrich, every 6 hours [employer]SEM[employer]ER-C as needed or 15 minutes prior to exercise Qvar Redihaler 07/19 Active Aerosol 80mcg/Act 8.7un inhale two J45.30 Mireya its puffs by mouth Uldrich, twice a day [employer]MENT ASSEMBLER-C Metronidazole 06/30 Active Gel 0.75% 210un Use 1 Chetan W. /2018 its Applicatorful Fraser, Vaginally M.D. Every Day X 5 Days Guaifenesin ER 06/21 Active Tablets ER 1200mg 90tab 1 by mouth Z23 Mireya /2019 12HR s every 12 hours Uldrich, [employer]MENT ASSEMBLER-C Anoro Ellipta 05/25 Active Aerosol 62.5-25mc 30uni Inhale one J30.89 g/Inh ts dose daily Crissy Fraser Epipen 2-Shen 08/24 Active Solution 0.3mg/0.3 2unit use as Auto-Injec ML s directed daniel Fraser M.D. Xolair 08/06 Active Solution 150mg 3unit inject 150mg Chetan Rec s under the skin Evelio, every 4 weeks. M.DBart Include ancillary supplies and sterile water Albuterol 03/10 Active Nebulizer (2.5mg/3M 1650u 1 neb [facility] L) 0.083% nits inhalation Uldrich, every 4 hours [employer]MENT [employer]SEMBLER-C as needed Qnasl 03/10 Active Aerosol 80mcg/Act 8.700 1-2 sprays in [facility] Mireya /2017 gm each nostril Uldrich, daily [employer]SEMBLER-C Benadryl Active Capsules 25mg 60cap two tablets as Unknown /0000 s needed every 4-6 hrs. Tramadol HCL Active Tablets 50mg as needed Vee, 0000 Crissy Osorio Omeprazole Active Capsules 40mg once a day Unknown Triamcinolone Active Cream 0.1% Shena To Itchy Unknown Acetonide 0000 Rash One To Two Times Daily prn Ondansetron Active Tablets 4mg Vee, Dispers Crissy Osorio Mucinex Active Tablets ER 600mg Unknown 12HR Augmentin Active Tablets 875-125mg 1 tab by mouth Unknown q12 Ventolin HFA 11/03 Hx Aerosol 108(90Bas 18uni inhale two J45.30 e) ts puffs by mouth Uldrich, - mcg/Act every 4 to 6 [employer] ASSEMBLER-C 07/20 hours needed for shortness of breath,cough or,wheezing Medications Administered in Office Medication Date Status Form Strength Qnty SIG Indications Ordering Provider Therapeutic, 07/19/ Administered Injection Nikki Prophylactic Or 2018 McNairn, Diagnostic M.D. Injection Subq/Im Therapeutic, 07/19/ Administered Injection Mireya Prophylactic Or 2018 Uldrich, Diagnostic [employer] ASSEMBLER-C Injection Subq/Im Therapeutic, 06/21/ Administered Injection Mireya Prophylactic Or 2018 Uldrich, Diagnostic [employer]MENT ASSEMBLER-C Injection Subq/Im Biologic Agent 05/27/ Administered Injection Mireya Administration 2018 Uldrich, [employer]MENT ASSEMBLER-C Therapeutic, 05/27/ Administered Injection Vy M Prophylactic Or 2018 Franci, Diagnostic M.D. Injection Subq/Im Biologic Agent 04/19/ Administered Injection Mireya Administration 2017 Uldrich, [employer]GMENT ASSEMBLER-C Biologic Agent 03/22/ Administered Injection Mireya Administration 2017 Uldrich, [employer]GMENT ASSEMBLER-C Therapeutic, 03/22/ Administered Injection Vy M Prophylactic Or 2017 Franci, Diagnostic M.D. Injection Subq/Im Therapeutic, 02/22/ Administered Injection Mireya Prophylactic Or 2017 Uldrich, Diagnostic [employer]GMENT ASSEMBLER-C Injection Subq/Im Therapeutic, 01/18/ Administered Injection Nikki Prophylactic Or 2017 Raz, Diagnostic M.D. Injection Subq/Im Therapeutic, 01/18/ Administered Injection Mireya Prophylactic Or 2017 Uldrich, Diagnostic [employer]GMENT ASSEMBLER-C Injection Subq/Im Injection 01/18/ Administered Injection Allergy 2018 Injection Therapeutic, 12/22/ Administered Injection Vy M Prophylactic Or 2017 Franci, Diagnostic M.D. Injection Subq/Im Injection 12/22/ Administered Injection Allergy 2018 Injection Biologic Agent 11/18/ Administered Injection Mireya Administration 2017 Uldrich, [employer]GMENT ASSEMBLER-C Therapeutic, 11/18/ Administered Injection Nikki Prophylactic Or 2017 Raz, Diagnostic M.D. Injection Subq/Im Injection 11/18/ Administered Injection Allergy 2018 Injection Biologic Agent 10/21/ Administered Injection Mireya Administration 2017 Uldrich, [employer]MENT ASSEMBLER-C Therapeutic, 10/21/ Administered Injection Mireya Prophylactic Or 2017 Uldrich, Diagnostic [employer]GMENT ASSEMBLER-C Injection Subq/Im Injection 10/21/ Administered Injection Allergy 2018 Injection Therapeutic, 09/27/ Administered Injection Nikki Prophylactic Or 2017 McJackelinn, Diagnostic M.D. Injection Subq/Im Therapeutic, 09/27/ Administered Injection Mireya Prophylactic Or 2017 Uldrich, Diagnostic [employer]GMENT ASSEMBLER-C Injection Subq/Im Injection 09/27/ Administered Injection Allergy 2018 Injection Injection 08/31/ Administered Injection Allergy 2018 Injection Biologic Agent 08/30/ Administered Injection Mireya Administration 2018 Brant TYPE BAR [employer] SEGMENT ASSEMBLER-Aldo Therapeutic, 08/30/ Administered Injection Nikki Prophylactic Or 2018 Mica Crandall M.D. Injection Subq/Im Immunizations CPT Code Status Date Vaccine Lot # 19486 Given 03/24/2013 Influenza Vaccine 33161 Given Unknown Pneumococcal Vaccine 60108 Given Unknown Pneumococcal Vaccine Vital Signs Date Vital Result Comment 07/27/2018 3:33pm Height 65 inches 5'5" Patient [...] H/L Range Note CBC Auto Diff 11/03/2017 [facility] White Blood 8.6 10^3/uL N 3.5-10.[address] [place] [address] [phone] Red Blood Count 4.47 10^6/uL N 4.00-5.40 [...] Blood Cells % 0.1 CBC Auto 07/19/2017 [facility] White Blood 11.4 10^3/uL High 3.5-10.[address] [place] [address] [phone] Red Blood Count 4.48 10^6/uL N 4.0-5.4 [...] Blood Cells % 0 HIV 1/2 AB 07/19/2017 [facility] HIV 1 2 Nonreactive Nonreactive [address] Antibody [place], [place] [id number] [phone] Laboratory test 07/19/2017 [facility] Miscellaneous See Comment [address] [place] [address] [phone] Immunoglobulins 07/19/2017 [facility] Immunoglobulin 799 mg/dL 767 - 1590 3 Serum Quant [address] [place] [address] [phone] Immunoglobulin M 94 mg/dL 37 - 286 Immunoglobulin A 163 mg/dL 61 - 356 Diptheria Igg 07/19/2017 [facility] Diphtheria IgG Positive [address] [place] [address] [phone] Diphtheria IgG Value 0.44 IU/mL 5 Tetanus Toxoid Igg 07/19/2017 [facility] Tetanus Toxoid Positive 6 Antibody,S [address] [place] [address] [phone] Tetanus Toxoid IgG Value 0.92 IU/mL 7 Laboratory 07/19/2017 [facility] Immunoglobulin E 11.6 <=214 8 test finding [address] (Ige) kU/L [place], [place] [address] [phone] T&B Cell 07/19/2017 [facility] Absolute CD45 3.58 Abnormal 0.82-2.[address] Count thou/mc 4 [place] [address] L [phone] Percent CD3 Cells (T Cells) 84 % 58-86 Percent CD19 Cells (B Cells) 13 % 6-24 % CD16+CD56 Cells (NK Cells) 2 % Abnormal 4-28 Percent CD4 Cell (Richmond Cell) 58 % 32-64 Percent CD8 Cells (Supp Cell) 26 % 13-40 Absolute CD3 Count (T Cells) 3001 cells/L Abnormal 550-2202 Absolute CD19 Count (B Cells) 474 cells/L Abnormal 70-409 Absolute CD16+CD56 Count (NK) 64 cells/L 59-513 Absolute CD4 Count (Help Cell) 2073 cells/L Abnormal 365-1437 Absolute CD8 Count (Supp Cell) 942 cells/L Abnormal 145-846 T-Richmond/Suppressor Ratio 2.2 >=0.9 T B Cell Comment See Comment 9 S.Pneumoniae Igg 10/20/2016 [facility] S. pneumoniae 17.0 g/ mL N >=2.3 AB [address] Type 1 [place] [address] [phone] S. pneumoniae Type 2 IgG AB 6.4 [...] g/mL N >=1.7 10 Laboratory test 10/20/2016 [facility] Immunoglobulin G 1170 N 767 - [address] (Igg) mg/dL 1590 [place] [address] [phone] Immunoglobulin M (Igm) 140 mg/dL N 37 - 286 12 Immunoglobulin A (Iga) 186 mg/dL N 61 - 356 13 Immunoglobulin E (Ige) 34.1 kU/L N <=214 14 CBC W/Auto 10/20/2016 [facility] White Blood 11.3 10^3/uL High 3.5-10.8 Diff Cancer [address] [place] [address] [phone] Red Blood Count 4.72 10^6/uL N 4.0-5.4 [...] Nucleated Red Blood Cells % 0.1 N Laboratory test 08/27/2015 [facility] Immunoglobulin E 58.4 kU/ L N <=214 [address] (Ige) [place] [address] [phone] 2 It is recognized that currently available assays [...] developed and its performance characteristics determined by [facility]. It has not been cleared or approved by the U.S. Food and Drug Administration. Test Performed by: [facility] [address] [place] [address] 3 Test Performed by: [facility] - [address] [address] 4 REFERENCE VALUE Vaccinated: Positive (>=0.01 IU/mL) Unvaccinated: Negative (< 0.01 IU/mL) 5 Test Performed by: [facility] [place] [address] 6 REFERENCE VALUE Vaccinated: Positive (>=0.01 IU/mL) Unvaccinated: Negative (< 0.01 IU/mL) 7 ADDITIONAL INFORMATION This test was developed and its performance characteristics determined by [facility] in a manner consistent with CLIA requirements. This test has not been cleared or approved by the U.S. Food and Drug Administration. Test Performed by: [place] [address] 8 Test Performed by: [place] [address] 9 RESULT: Reviewed by: Paz Rutledge M.D., D. Stevie., D(ABMLI) ADDITIONAL INFORMATION Reference values implemented September 13, 2012. This test was developed using an analyte specific reagent. Its performance characteristics were determined by [facility] in a manner consistent with CLIA requirements. This test has not been cleared or approved by the U.S. Food and Drug Administration. Test Performed by: [address] [address] 10 Either of the two following conditions [...] antigens. Serotype 6A is only present in [facility] This test was developed and its performance characteristics determined by [facility] in a manner consistent with CLIA requirements. This test has not been cleared or approved by the U.S. Food and Drug Administration. Test Performed by: [address] [address] 11 Test Performed by: [address] [address] 12 Test Performed by: [address] [address] 13 Test Performed by: [address] [address] 14 Test Performed by: [address] [address] 15 Test Performed by: [place] [address] Director Of Development And Marketing: Efrain Wilkinson II, M.D., Ph.D. Procedures Date Code Description Status 07/19/2018 37213 Therapeutic, Prophylactic Or Diagnostic Injection Subq/Im Completed 07/19/2018 53029 Therapeutic, Prophylactic Or Diagnostic Injection Subq/Im Completed 06/21/2018 40770 Therapeutic, Prophylactic Or Diagnostic Injection Subq/Im Completed 05/27/2018 23387 Biologic Agent Administration Completed 05/27/2018 99938 Therapeutic, Prophylactic Or Diagnostic Injection Subq/Im Completed 05/27/2018 28621 Nitric Oxide Gas Determination Completed 04/19/2018 73374 Biologic Agent Administration Completed 04/19/2018 43555 Nitric Oxide Gas Determination Completed 03/22/2018 12248 Therapeutic, Prophylactic Or Diagnostic Injection Subq/Im Completed 03/22/2018 88757 Biologic Agent Administration Completed 02/22/2018 40864 Therapeutic, Prophylactic Or Diagnostic Injection Subq/Im Completed 01/18/2018 98857 Therapeutic, Prophylactic Or Diagnostic Injection Subq/Im Completed 01/18/2018 63553 Therapeutic, Prophylactic Or Diagnostic Injection Subq/Im Completed 01/18/2018 29373 Injection Completed 12/29/2017 39200 Pre PFT Completed 12/22/2017 39322 Therapeutic, Prophylactic Or Diagnostic Injection Subq/Im Completed 12/22/2017 21590 Injection Completed 11/18/2017 24607 Injection Completed 11/18/2017 96795 Therapeutic, Prophylactic Or Diagnostic Injection Subq/Im Completed 11/18/2017 84920 Biologic Agent Administration Completed 10/21/2017 22393 Biologic Agent Administration Completed 10/21/2017 42092 Therapeutic, Prophylactic Or Diagnostic Injection Subq/Im Completed 10/21/2017 43611 Injection Completed 10/21/2017 34014 Pre PFT Completed 10/21/2017 09159 Pre PFT Completed 09/27/2017 61307 Therapeutic, Prophylactic Or Diagnostic Injection Subq/Im Completed 09/27/2017 20526 Therapeutic, Prophylactic Or Diagnostic Injection Subq/Im Completed 09/27/2017 45403 Injection Completed 09/22/2017 64612 Pre PFT Completed 08/31/2017 78915 Injection Completed 08/30/2017 85811 Biologic Agent Administration Completed 08/30/2017 54294 Therapeutic, Prophylactic Or Diagnostic Injection Subq/Im Completed 08/30/2017 30775 Pre PFT Completed 07/27/2017 09913 Ippb Completed 07/27/2017 76476 Ippb Completed 06/08/2017 05494 Ippb Completed 06/01/2017 47464 Ippb Completed 06/01/2017 94889 Ippb Completed 06/01/2017 17155 Pre PFT Completed 06/01/2017 54559 Pre PFT Completed 03/10/2017 75925 Pre PFT Completed 03/10/2017 65043 Pre PFT Completed 12/11/2016 56995 Ippb Completed 12/11/2016 85343 Ippb Completed 09/24/2016 01064 Pre PFT Completed 05/07/2016 19909 Pre PFT Completed 12/12/2015 45039 Pre PFT Completed 08/15/2015 56675 Pre PFT Completed 06/13/2015 73829 Pre PFT Completed 09/19/2013 40142 Pre PFT Completed 05/11/2013 48901 Oxygen Level - Pulse Oximiter Completed 04/27/2013 03471 Oxygen Level - Pulse Oximiter Completed 02/23/2013 78450 Oxygen Level - Pulse Oximiter Completed 02/23/2013 54651 Pulmonary Function Test Completed 02/02/2013 40289 Oxygen Level - Pulse Oximiter Completed 01/12/2013 39964 Oxygen Level - Pulse Oximiter Completed 11/03/2012 81181 Oxygen Level - Pulse Oximiter Completed 05/05/2012 48975 Oxygen Level - Pulse Oximiter Completed 05/05/2012 38241 Pulmonary Function Test Completed 07/30/2011 68950 Extract 1-10 Completed 07/21/2011 72316 Oxygen Level - Pulse Oximiter Completed 07/02/2011 17467 Skin Tests Id Completed 06/16/2011 65398 Oxygen Level - Pulse Oximiter Completed 06/16/2011 22314 Ippb Completed 06/09/2011 21300 Oxygen Level - Pulse Oximiter Completed 06/09/2011 79228 Oxygen Level - Pulse Oximiter Completed 06/09/2011 86625 Ippb Completed 06/04/2011 57187 Skin Test Scratch # Of Units ____ Completed 05/28/2011 32442 Pulmonary Function Test Completed Encounters Type Date Location Provider Dx Diagnosis Office Visit 05/25/2018 [facility] Chetan Camejo J30.89 Other allergic 11:20a Crissy Fraser rhinitis J45.40 Moderate persistent asthma, uncomplicated Z23 Encounter for immunization J44.9 Chronic obstructive pulmonary disease, unspecified Office Visit 02/23/2018 11:00a [facility] Chetan Camejo J30.89 Other allergic Crissy Fraser rhinitis J45.40 Moderate persistent asthma, uncomplicated J32.9 Chronic sinusitis, unspecified Office Visit 12/29/2017 11:00a [facility] Chetan Nguyễn30.89 Other allergic Crissy Fraser rhinitis J32.9 Chronic sinusitis, unspecified J45.40 Moderate persistent asthma, uncomplicated Z23 Encounter for immunization J44.9 Chronic obstructive pulmonary disease, unspecified Office Visit 09/22/2017 4:00p [facility] Chetan Nguyễn30.89 Other allergic Crissy Fraser rhinitis J45.40 Moderate persistent asthma, uncomplicated J32.9 Chronic sinusitis, unspecified Office Visit 07/27/2017 3:40p [facility] Barbara Langley J45.40 Moderate persistent Office [employer]-C asthma, uncomplicated J32.9 Chronic sinusitis, unspecified J30.89 Other allergic rhinitis Office Visit 07/14/2017 11:40a [facility] Chetan Camejo J30.89 Other allergic Crissy Fraser rhinitis J45.40 Moderate persistent asthma, uncomplicated J32.9 Chronic sinusitis, unspecified D84.9 Immunodeficiency, unspecified Z23 Encounter for immunization Office Visit 06/16/2017 10:40a [facility] Chetan Camejo J30.89 Other allergic Crissy Fraser rhinitis J45.40 Moderate persistent asthma, uncomplicated J32.9 Chronic sinusitis, unspecified J47.0 Bronchiectasis with acute lower respiratory infection Z23 Encounter for immunization Office Visit 06/08/2017 11:20a [facility] Mireya Z23 Encounter for Uldrich, TYPE [employer]MENT ASSEMBLER-C immunization J45.40 Moderate persistent asthma, uncomplicated J30.89 Other allergic rhinitis Office Visit 06/01/2017 1:40p [facility] Barbara Shivam Z23 Encounter for TYPE [employer]MENT ASSEMBLER-C immunization J47.9 Bronchiectasis, uncomplicated J01.90 Acute sinusitis, unspecified J45.40 Moderate persistent asthma, uncomplicated Office Visit 05/20/2017 4:20p [facility] Chetan Camejo J45.40 Moderate persistent Office Paty Fraser. asthma, uncomplicated J47.9 Bronchiectasis, uncomplicated Z23 Encounter for immunization Office Visit 03/31/2017 11:40a [facility] Chetan Camejo J30.89 Other allergic Crissy Fraser rhinitis J45.40 Moderate persistent asthma, uncomplicated J47.9 Bronchiectasis, uncomplicated Z23 Encounter for immunization Office Visit 03/10/2017 2:40p [facility] Mireya Z23 Encounter for Uldrich, [employer]GMENT ASSEMBLER-C immunization J30.89 Other allergic rhinitis J32.9 Chronic sinusitis, unspecified J45.40 Moderate persistent asthma, uncomplicated J47.9 Bronchiectasis, uncomplicated Office Visit 01/27/2017 11:40a [facility] Chetan Camejo J30.89 Other allergic Crissy Fraser rhinitis J47.9 Bronchiectasis, uncomplicated J32.9 Chronic sinusitis, unspecified Z23 Encounter for immunization Office Visit 12/16/2016 2:20p [facility] Chetan Camejo J30.89 Other allergic Crissy Fraser rhinitis J32.9 Chronic sinusitis, unspecified J47.9 Bronchiectasis, uncomplicated J45.40 Moderate persistent asthma, uncomplicated Z23 Encounter for immunization Office [facility] D84.9 Immunodeficiency, [employer]GMENT ASSEMBLER-C unspecified J30.89 Other allergic rhinitis J45.40 Moderate persistent asthma, uncomplicated J47.9 Bronchiectasis, uncomplicated Z23 Encounter for immunization Office Visit 10/21/2016 [facility] Chetan Camejo J47.9 Bronchiectasis, 11:20a Office Crissy Fraser uncomplicated J45.40 Moderate persistent asthma, uncomplicated D84.9 Immunodeficiency, unspecified J30.89 Other allergic rhinitis Z23 Encounter for immunization Z68.42 Body mass index (BMI) 45.0-49.9, adult Office Visit 09/24/2016 8:40a [place] Chetan Fraser J01.90 Acute sinusitis, M.D. unspecified J45.40 Moderate persistent asthma, uncomplicated D84.9 Immunodeficiency, unspecified J01.90 Acute sinusitis, unspecified J30.89 Other allergic rhinitis J30.89 Other allergic rhinitis D84.9 Immunodeficiency, unspecified Z23 Encounter for immunization Z68.42 Body mass index (BMI) 45.0-49.9, adult Office Visit 08/26/2016 11:40a [facility] Chetan Camejo J01.90 Acute sinusitis, Evelio MHaseeb. unspecified J30.89 Other allergic rhinitis J45.40 Moderate persistent asthma, uncomplicated J47.9 Bronchiectasis, uncomplicated Z23 Encounter for immunization Z68.42 Body mass index (BMI) 45.0-49.9, adult Office Visit 08/19/2016 11:20a [facility] Chetan Camejo J01.90 Acute sinusitis, Evelio M.DBart unspecified J30.89 Other allergic rhinitis Z68.42 Body mass index (BMI) 45.0-49.9, adult Z23 Encounter for immunization Office Visit 07/09/2016 11:40a [place] Chetan Fraser J30.89 Other allergic M.D. rhinitis J45.40 Moderate persistent asthma, uncomplicated J47.9 Bronchiectasis, uncomplicated Z68.42 Body mass index (BMI) 45.0-49.9, adult Office Visit 05/07/2016 3:40p [place] Chetan Nguyễn45.40 Moderate persistent Fraser, MBartD. asthma, uncomplicated J30.89 Other allergic rhinitis J47.9 Bronchiectasis, uncomplicated Z68.41 Body mass index (BMI) 40.0-44.9, adult Office Visit 02/20/2016 3:00p [facility] Catracho Maria, J30.1 Allergic rhinitis M.D. due to pollen J45.30 Mild persistent asthma, uncomplicated Z23 Encounter for immunization Z68.43 Body mass index (BMI) 50-59.9 , adult Office Visit 12/12/2015 11:20a [facility] Catracho Maria J30.1 Allergic rhinitis M.D. due to pollen J45.30 Mild persistent asthma, uncomplicated J32.8 Other chronic sinusitis Z23 Encounter for immunization Z68.41 Body mass index (BMI) 40.0-44.9, adult Office Visit 08/15/2015 3:20p [facility] Catracho Maria J45.40 Moderate persistent M.D. asthma, uncomplicated Z68.36 Body mass index (BMI) 36.0-36.9, adult Z23 Encounter for immunization J45.40 Moderate persistent asthma, uncomplicated J30.1 Allergic rhinitis due to pollen Office Visit 06/13/2015 11:20a [facility] Catracho Maria Z68.39 Body mass index M.D. (BMI) 39.0-39.9, adult Z23 Encounter for immunization J32.8 Other chronic sinusitis J45.30 Mild persistent asthma, uncomplicated Office Visit 12/13/2014 8:40a [facility] Catracho Maria M.D. 786.2 Cough 493.00 Asthma Extrinsic Unspecified 473.8 Sinusitis Chronic Other V85.38 Body Mass Index 38.0-38.9 Adult V04.81 Need For Prophylactic Vaccination & Inoculation/Influenza 380.22 Otitis Externa Other Acute Office Visit 07/26/2014 11:00a [facility] Catracho Maria M.D. 786.2 Cough 493.00 Asthma Extrinsic Unspecified 748.61 Bronchiectasis Congenital 473.8 Sinusitis Chronic Other Office Visit 12/28/2013 11:40a [facility] Catracho Maria M.D. 786.2 Cough 748.61 Bronchiectasis Congenital 477.8 Rhinitis Allergic Due To Other Allergen Office Visit 09/19/2013 11:00a [facility] Chetan Camejo 493.00 Asthma Extrinsic Crissy Fraser Unspecified 110.5 Dermatophytosis Body 461.0 Sinusitis Acute Maxillary 564.00 Constipation Unspecified Office Visit 06/29/2013 3:00p [facility] Samantha 493.00 Asthma Extrinsic Lsia, [employer] ASSEMBLER-BC Unspecified 477.8 Rhinitis Allergic Due To Other Allergen 477.0 Rhinitis Allergic Due To Pollen 473.9 Sinusitis Chronic Unspec Office Visit 06/15/2013 3:20p [facility] Catracho Maria, 493.00 Asthma Extrinsic M.D. Unspecified 477.8 Rhinitis Allergic Due To Other Allergen 473.9 Sinusitis Chronic Unspec Office Visit 06/06/2013 11:00a [facility] Samantha 493.00 Asthma Extrinsic Lisa, [employer] ASSEMBLER-BC Unspecified 477.8 Rhinitis Allergic Due To Other Allergen 477.0 Rhinitis Allergic Due To Pollen Office Visit 05/11/2013 10:00a [facility] Samantha 493.00 Asthma Extrinsic Lisa, [employer] ASSEMBLER-BC Unspecified 477.8 Rhinitis Allergic Due To Other Allergen 477.0 Rhinitis Allergic Due To Pollen Office Visit 04/27/2013 1:40p [facility] Samantha 493.00 Asthma Extrinsic Lisa, [employer]GMENT ASSEMBLER-BC Unspecified 477.8 Rhinitis Allergic Due To Other Allergen 477.0 Rhinitis Allergic Due To Pollen Office Visit 03/30/2013 10:20a [facility] Samantha 493.00 Asthma Extrinsic Lisa, [employer]GMENT ASSEMBLER-BC Unspecified 477.8 Rhinitis Allergic Due To Other Allergen 477.0 Rhinitis Allergic Due To Pollen Office Visit 02/02/2013 11:00a [facility] Catracho Maria M.D. 786.2 Cough 477.8 Rhinitis Allergic Due To Other Allergen 493.00 Asthma Extrinsic Unspecified Office Visit 01/12/2013 11:00a [facility] Catracho Maria M.D. 786.2 Cough 477.8 Rhinitis Allergic Due To Other Allergen Office Visit 12/01/2012 4:00p [facility] Joy Abbott 493.00 Asthma Extrinsic [place], TYPE [employer]-C Unspecified 477.0 Rhinitis Allergic Due To Pollen 477.8 Rhinitis Allergic Due To Other Allergen Office Visit 11/03/2012 4:20p [facility] Catracho Maria 493.00 Asthma Extrinsic M.D. Unspecified Office Visit 09/15/2012 9:40a [facility] Joy Abbott 493.00 Asthma Extrinsic [place], Unspecified [employer]-C 473.9 Sinusitis Chronic Unspec Office Visit 08/11/2012 11:20a [facility] Catracho Mckeonan, 493.00 Asthma Extrinsic M.D. Unspecified Office Visit 08/04/2012 8:40a [facility] Catracho Crow, 461.9 Sinusitis Acute M.D. Unspec Office Visit 06/09/2012 3:20p [facility] Catracho Crow, 493.90 Asthma Unspec W/O M.D. Status Asthmaticus 473.9 Sinusitis Chronic Unspec Office Visit 05/31/2012 9:20a [facility] Joy LBart 465.8 Upper Respiratory [place], TYPE [employer]-C Infections Acute Other Multiple Sites 493.00 Asthma Extrinsic Unspecified Office Visit 04/28/2012 8:30a [facility] Catracho Khan, 477.0 Rhinitis Allergic M.D. Due To Pollen 493.00 Asthma Extrinsic Unspecified Office Visit 03/31/2012 2:00p [facility] Joy Abbott 493.00 Asthma Extrinsic [place], [employer]-C Unspecified 708.1 Urticaria Idiopathic 477.0 Rhinitis Allergic Due To Pollen Office Visit 02/11/2012 8:40a [facility] Catracho Maria, 786.2 Cough M.D. Office Visit 01/28/2012 11:00a [facility] Catracho Mckeonan, 461.9 Sinusitis Acute M.D. Unspec Office Visit 01/14/2012 3:40p [facility] Catracho Maria, 786.2 Cough M.D. 493.90 Asthma Unspec W/O Status Asthmaticus 477.0 Rhinitis Allergic Due To Pollen 477.8 Rhinitis Allergic Due To Other Allergen Office Visit 05/28/2011 11:40a [facility] Catracho Maria M.D. 786.2 Cough 493.90 Asthma Unspec W/O Status Asthmaticus 477.0 Rhinitis Allergic Due To Pollen 477.8 Rhinitis Allergic Due To Other Allergen Office Visit 03/05/2011 8:40a [facility] Bernabe Aviles M.D. 786.2 Cough 493.90 Asthma Unspec W/O Status Asthmaticus 477.0 Rhinitis Allergic Due To Pollen 477.8 Rhinitis Allergic Due To Other Allergen Office Visit 01/29/2011 11:00a [facility] Catracho Maria M.D. 786.2 Cough 493.90 Asthma Unspec W/O Status Asthmaticus 477.0 Rhinitis Allergic Due To Pollen 477.8 Rhinitis Allergic Due To Other Allergen Office Visit 01/06/2011 2:20p [facility] Nikki Crandall M.D. 786.2 Cough 493.90 Asthma Unspec W/O Status Asthmaticus 477.0 Rhinitis Allergic Due To Pollen 477.8 Rhinitis Allergic Due To Other Allergen Plan of Treatment Future Appointment(s):08/16/2018 2:20 pm - [facility] at [facility]10/19/2018 3:20 pm - Chetan Fraser M.D. at [facility]
--- OUTSIDE RECORDS SUMMARY | 2018-09-04 11:27 | XMS REPORT | Continuity of Care Document ---
:1970 External Reference #:[id number] Author Name CRYSTAL Sanches Address [address] [place] [address] Care Team Providers Name Role Phone Devon Baxter M.D. Care Team Information [employer] Unavailable Hunter Johnson M.D. Primary Care Physician Unavailable Payers Date Identification Numbers Payment Provider Subscriber Effective: 2002 Policy Number: [id number] Medicare-National Emelyn Noel GVT.Sys PayID: [id number] [address] [place] [address] Policy Number: [id number] [facility] Emelyn Noel Group Number: [id number] [employer] Name: Vidya Vang [address] PayID: [id number] [place] [address] Policy Number: [id number] Medicaid-Adult Emelyn Noel Group Name: 2 1 [id number] [facility] PayID: [id number] [place] [address] Advance Directives Description No Information Available Problems [...] Boyfriend Home Environment 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 /2018 its Applicatorful Fraser, Vaginally M.D. Every Day X 5 Days Guaifenesin ER 06/21 Active Tablets ER 1200mg 90tab 1 by mouth 12HR s every 12 hours AMY GuoP-C Anoro Ellipta 05/25 Active Aerosol 62.5-25mc 30uni Inhale one J30.89 Chetan W. g/Inh ts dose daily Crissy Fraser Epipen 2-Shen 08/24 Active Solution 0.3mg/0.3 2unit use as Auto-Injec ML s directed daniel Fraser M.D. Xolair 08/06 Active Solution 150mg 3unit inject 150mg Chetan W. Rec s under the skin Evelio, every 4 weeks. M.DBart Include ancillary supplies and sterile water Albuterol 03/10 Active Nebulizer (2.5mg/3M 1650u 1 neb [facility] L) 0.083% nits inhalation Uldrich, every 4 hours WINE CONSULTANT-C as needed Qnasl 03/10 Active Aerosol 80mcg/Act 8.700 1-2 sprays in [facility] gm each nostril Uldrich, daily WINE CONSULTANT-C Benadryl Active Capsules 25mg 60cap two tablets as Unknown s needed every 4-6 hrs. Tramadol HCL Active Tablets 50mg as needed [place], Crissy Osorio Omeprazole Active Capsules 40mg once a day Unknown Triamcinolone Active Cream 0.1% Shena To Itchy Unknown Acet Rash One To Two Times Daily prn Ondansetron Active Tablets 4mg [place], Mitchell Osorio M.D. Mucinex Active Tablets ER 600mg Unknown 12HR Augmentin Active Tablets 875-125mg 1 tab by mouth Unknown q12 Lisinopril Active Tablets 5mg TK 1 T PO D Unknown Medications Administered in Office Medication Date Status Form Strength Qnty SIG Indications Ordering Provider Therapeutic, 07/19/ Administered Injection Nikki Prophylactic Or 2018 Mica Crandall M.D. Injection Subq/Im Therapeutic, Administered Injection Mireya Prophylactic Or 2018 Uldrich, Diagnostic WINE CONSULTANT-C Injection Subq/Im Therapeutic, 06/21/ Administered Injection Mireya Prophylactic Or 2018 Uldrich, Diagnostic WINE CONSULTANT-C Injection Subq/Im Biologic Agent 05/27/ Administered Injection Mireya Administration 2018 Uldrich, WINE CONSULTANT-C Therapeutic, 05/27/ Administered Injection Vy M Prophylactic Or 2018 Franci, Diagnostic M.D. Injection Subq/Im Biologic Agent 04/19/ Administered Injection Mireya Administration 2017 Uldrich, WINE CONSULTANT-C Biologic Agent 03/22/ Administered Injection Mireya Administration 2017 Uldrich, WINE CONSULTANT-C Therapeutic, 03/22/ Administered Injection Vy M Prophylactic Or 2017 Franci Diagnostic M.D. Injection Subq/Im Therapeutic, 02/22/ Administered Injection Mireya Prophylactic Or 2017 Uldrich, Diagnostic WINE CONSULTANT-C Injection Subq/Im Therapeutic, 01/18/ Administered Injection Nikki Prophylactic Or 2017 Mica Crandall M.D. Injection Subq/Im Therapeutic, 01/18/ Administered Injection Mireya Prophylactic Or 2017 Uldrich, Diagnostic WINE CONSULTANT-C Injection Subq/Im Injection 01/18/ Administered Injection Allergy 2018 Injection Therapeutic, 12/22/ Administered Injection Vy M Prophylactic Or 2017 Franci Diagnostic M.D. Injection Subq/Im Injection 12/22/ Administered Injection Allergy 2018 Injection Biologic Agent 11/18/ Administered Injection Mireya Administration 2017 Uldrich, WINE CONSULTANT-C Therapeutic, 11/18/ Administered Injection Nikki Prophylactic Or 2017 Raz Diagnostic M.D. Injection Subq/Im Injection 11/18/ Administered Injection Allergy 2018 Injection Biologic Agent 10/21/ Administered Injection Mireya Administration 2017 Uldrich, WINE CONSULTANT-C Therapeutic, 10/21/ Administered Injection Mireya Prophylactic Or 2017 Uldrich, Diagnostic WINE CONSULTANT-C Injection Subq/Im Injection 10/21/ Administered Injection Allergy 2018 Injection Therapeutic, 09/27/ Administered Injection Nikki Prophylactic Or 2017 Raz Diagnostic M.D. Injection Subq/Im Therapeutic, 09/27/ Administered Injection Mireya Prophylactic Or 2017 Uldrich, Diagnostic WINE CONSULTANT-C Injection Subq/Im Injection 09/27/ Administered Injection Allergy 2018 Injection Injection 08/31/ Administered Injection Allergy 2018 Injection Biologic Agent 08/30/ Administered Injection Mireya Administration 2018 CRYSTAL Guo Therapeutic, 08/30/ Administered Injection Nikki Prophylactic Or Mica Golden M.D. Injection Subq/Im Immunizations CPT Code Status Date Vaccine Lot # 69339 Given 03/24/2013 Influenza Vaccine 18587 Given Unknown Pneumococcal Vaccine 43110 Given Unknown Pneumococcal Vaccine Vital Signs Date Vital Result Comment 08/16/2018 2:40pm Height 65 inches 5'5" Patient [...] H/L Range Note CBC Auto Diff 11/03/2017 [facility] White Blood 8.6 10^3/uL N 3.5-10.[address] [place] [address] [phone] Red Blood Count 4.47 10^6/uL N 4.00-5.40 [...] Blood Cells % 0.1 CBC Auto 07/19/2017 [facility] White Blood 11.4 10^3/uL High 3.5-10.[address] [place] [address] [phone] Red Blood Count 4.48 10^6/uL N 4.0-5.4 [...] Cells % 0 HIV 1/2 AB 07/19/2017 [facility] HIV 1 2 Nonreactive Nonreactive [address] Antibody [place], [place] [id number] [phone] T&B Cell 07/19/2017 [facility] Absolute 3.58 thou/mcL Abnormal 0.82-2.[address] CD45 Count Evaluation [place], [place] [address] [phone] Percent CD3 Cells (T Cells) 84 % 58-86 Percent CD19 Cells (B Cells) 13 % 6-24 % CD16+CD56 Cells (NK Cells) 2 % Abnormal 4-28 Percent CD4 Cell ([place] Cell) 58 % 32-64 Percent CD8 Cells (Supp Cell) 26 % 13-40 Absolute CD3 Count (T Cells) 3001 cells/L Abnormal 550-2202 Absolute CD19 Count (B Cells) 474 cells/L Abnormal 70-409 Absolute CD16+CD56 Count (NK) 64 cells/L 59-513 Absolute CD4 Count (Help Cell) 2073 cells/L Abnormal 365-1437 Absolute CD8 Count (Supp Cell) 942 cells/L Abnormal 145-846 T-[place]/Suppressor Ratio 2.2 >=0.9 T B Cell Comment See Comment 2 Laboratory test 07/19/2017 [facility] Immunoglobulin E 11.6 kU/ L <=214 [address] (Ige) [place] [address] [phone] Tetanus Toxoid 07/19/2017 [facility] Tetanus Toxoid IgG Positive 4 Igg Antibody,S [address] [place] [address] [phone] Tetanus Toxoid IgG Value 0.92 IU/mL 5 Diptheria Igg 07/19/2017 [facility] Diphtheria IgG Positive [address] [place] [address] [phone] Diphtheria IgG Value 0.44 IU/mL 7 Laboratory test 07/19/2017 [facility] Miscellaneous See [address] [place] [address] [phone] Immunoglobulins 07/19/2017 [facility] Immunoglobulin G 799 mg/ dL 767 - 9 Serum Quant [address] [place] [address] [phone] Immunoglobulin M 94 mg/dL 37 - 286 Immunoglobulin A 163 mg/dL 61 - 356 CBC W/Auto 10/20/2016 [facility] White Blood 11.3 10^3/uL High 3.5-10.8 Diff Cancer [address] [place] [address] [phone] Red Blood Count 4.72 10^6/uL N 4.0-5.4 [...] Cells % 0.1 N S.Pneumoniae Igg 10/20/2016 [facility] S. pneumoniae 17.0 g/ mL N >=2.3 AB [address] Type 1 IgG AB [place] [id number] [phone] S. pneumoniae Type 2 IgG AB 6.4 [...] g/mL N >=1.7 10 Laboratory test 10/20/2016 [facility] Immunoglobulin G 1170 N 767 - [address] (Igg) mg/dL 15[address] [place] [address] [phone] Immunoglobulin M (Igm) 140 mg/dL N 37 - 286 12 Immunoglobulin A (Iga) 186 mg/dL N 61 - 356 13 Immunoglobulin E (Ige) 34.1 kU/L N <=214 14 Laboratory test 08/27/2015 [facility] Immunoglobulin E 58.4 kU/ L N <=214 15 finding [address] [facility] (Ige) [place] [address] [phone] 1 It is recognized that currently available [...] confidence interval of 99.78 to 99.96%. 2 RESULT: Reviewed by: Paz Rutledge M.D., DBart Marsh, D(JUANJO) ADDITIONAL INFORMATION Reference values implemented September 13, 2012. This test was developed using an analyte specific reagent. Its performance characteristics were determined by [facility] in a manner consistent with CLIA requirements. This test has not been cleared or approved by the U.S. Food and Drug Administration. Test Performed by: [facility] - [facility] [place] [address] [place] [address] 3 Test Performed by: [facility] - [facility] [address] [place] [address] 4 REFERENCE VALUE Vaccinated: Positive (>=0.01 IU/mL) Unvaccinated: Negative (< 0.01 IU/mL) 5 ADDITIONAL INFORMATION This test was developed and its performance characteristics determined by [facility] in a manner consistent with CLIA requirements. This test has not been cleared or approved by the U.S. Food and Drug Administration. Test Performed by: [facility] [place] [address] 6 REFERENCE VALUE Vaccinated: Positive (>=0.01 IU/mL) Unvaccinated: Negative (< 0.01 IU/mL) 7 Test Performed by: [facility] [employer] [facility] [facility] [address] [place] [address] 8 Test Result Flag Unit RefValue Pneumococcal Ab [...] developed and its performance characteristics determined by [facility]. It has not been cleared or approved by the U.S. Food and Drug Administration. Test Performed by: [employer] [address] [place] [address] 9 Test Performed by: [address] [address] 10 Either of the two following conditions [...] developed and its performance characteristics determined by [facility] in a manner consistent with CLIA requirements. This test has not been cleared or approved by the U.S. Food and Drug Administration. Test Performed by: [place] [address] 11 Test Performed by: [place] [address] 12 Test Performed by: [place] [address] 13 Test Performed by: [place] [address] 14 Test Performed by: [place] [address] 15 Test Performed by: [place] [address] Stock Tracer: Efrain Wilkinson II, M.D., Ph.D. Procedures Date Code Description Status 07/19/2018 31572 Therapeutic, Prophylactic Or Diagnostic Injection Subq/Im Completed 07/19/2018 84371 Therapeutic, Prophylactic Or Diagnostic Injection Subq/Im Completed 06/21/2018 05275 Therapeutic, Prophylactic Or Diagnostic Injection Subq/Im Completed 05/27/2018 82738 Biologic Agent Administration Completed 05/27/2018 24230 Therapeutic, Prophylactic Or Diagnostic Injection Subq/Im Completed 05/27/2018 14257 Nitric Oxide Gas Determination Completed 04/19/2018 67356 Biologic Agent Administration Completed 04/19/2018 53836 Nitric Oxide Gas Determination Completed 03/22/2018 38467 Therapeutic, Prophylactic Or Diagnostic Injection Subq/Im Completed 03/22/2018 51607 Biologic Agent Administration Completed 02/22/2018 86236 Therapeutic, Prophylactic Or Diagnostic Injection Subq/Im Completed 01/18/2018 71011 Therapeutic, Prophylactic Or Diagnostic Injection Subq/Im Completed 01/18/2018 95252 Therapeutic, Prophylactic Or Diagnostic Injection Subq/Im Completed 01/18/2018 38046 Injection Completed 12/29/2017 72367 Pre PFT Completed 12/22/2017 53238 Therapeutic, Prophylactic Or Diagnostic Injection Subq/Im Completed 12/22/2017 85107 Injection Completed 11/18/2017 78207 Injection Completed 11/18/2017 33319 Therapeutic, Prophylactic Or Diagnostic Injection Subq/Im Completed 11/18/2017 21193 Biologic Agent Administration Completed 10/21/2017 57083 Biologic Agent Administration Completed 10/21/2017 01370 Therapeutic, Prophylactic Or Diagnostic Injection Subq/Im Completed 10/21/2017 06293 Injection Completed 10/21/2017 78535 Pre PFT Completed 10/21/2017 07466 Pre PFT Completed 09/27/2017 00541 Therapeutic, Prophylactic Or Diagnostic Injection Subq/Im Completed 09/27/2017 77867 Therapeutic, Prophylactic Or Diagnostic Injection Subq/Im Completed 09/27/2017 95923 Injection Completed 09/22/2017 06081 Pre PFT Completed 08/31/2017 60867 Injection Completed 08/30/2017 08105 Biologic Agent Administration Completed 08/30/2017 22566 Therapeutic, Prophylactic Or Diagnostic Injection Subq/Im Completed 08/30/2017 72475 Pre PFT Completed 07/27/2017 19657 Ippb Completed 07/27/2017 07641 Ippb Completed 06/08/2017 33972 Ippb Completed 06/01/2017 18088 Ippb Completed 06/01/2017 94829 Ippb Completed 06/01/2017 93615 Pre PFT Completed 06/01/2017 09463 Pre PFT Completed 03/10/2017 30814 Pre PFT Completed 03/10/2017 66016 Pre PFT Completed 12/11/2016 74373 Ippb Completed 12/11/2016 20768 Ippb Completed 09/24/2016 19716 Pre PFT Completed 05/07/2016 04394 Pre PFT Completed 12/12/2015 64124 Pre PFT Completed 08/15/2015 01376 Pre PFT Completed 06/13/2015 05823 Pre PFT Completed 09/19/2013 43049 Pre PFT Completed 05/11/2013 73104 Oxygen Level - Pulse Oximiter Completed 04/27/2013 10118 Oxygen Level - Pulse Oximiter Completed 02/23/2013 23119 Oxygen Level - Pulse Oximiter Completed 02/23/2013 05507 Pulmonary Function Test Completed 02/02/2013 12335 Oxygen Level - Pulse Oximiter Completed 01/12/2013 42804 Oxygen Level - Pulse Oximiter Completed 11/03/2012 04375 Oxygen Level - Pulse Oximiter Completed 05/05/2012 89238 Oxygen Level - Pulse Oximiter Completed 05/05/2012 02615 Pulmonary Function Test Completed 07/30/2011 91130 Extract 1-10 Completed 07/21/2011 59714 Oxygen Level - Pulse Oximiter Completed 07/02/2011 78458 Skin Tests Id Completed 06/16/2011 37678 Oxygen Level - Pulse Oximiter Completed 06/16/2011 17494 Ippb Completed 06/09/2011 01161 Oxygen Level - Pulse Oximiter Completed 06/09/2011 71496 Oxygen Level - Pulse Oximiter Completed 06/09/2011 02126 Ippb Completed 06/04/2011 06453 Skin Test Scratch # Of Units ____ Completed 05/28/2011 92316 Pulmonary Function Test Completed Encounters Type Date Location Provider Dx Diagnosis Office Visit 05/25/2018 [facility] Chetan Nguyễn30.89 Other allergic 11:20a Crissy Fraser rhinitis J45.40 Moderate persistent asthma, uncomplicated Z23 Encounter for immunization J44.9 Chronic obstructive pulmonary disease, unspecified Office Visit 02/23/2018 11:00a [facility] Chetan Nguyễn30.89 Other allergic Crissy Fraser rhinitis J45.40 Moderate persistent asthma, uncomplicated J32.9 Chronic sinusitis, unspecified Office Visit 12/29/2017 11:00a [facility] Chetan Nguyễn30.89 Other allergic Crissy Fraser rhinitis J32.9 Chronic sinusitis, unspecified J45.40 Moderate persistent asthma, uncomplicated Z23 Encounter for immunization J44.9 Chronic obstructive pulmonary disease, unspecified Office Visit 09/22/2017 4:00p [facility] Chetan Nguyễn30.89 Other allergic Crissy Fraser rhinitis J45.40 Moderate persistent asthma, uncomplicated J32.9 Chronic sinusitis, unspecified Office Visit 07/27/2017 3:40p Re[facility] Langley J45.40 Moderate persistent Office WINE CONSULTANT-C asthma, uncomplicated J32.9 Chronic sinusitis, unspecified J30.89 Other allergic rhinitis Office Visit 07/14/2017 11:40a [facility] Chetan Camejo J30.89 Other allergic Crissy Fraser rhinitis J45.40 Moderate persistent asthma, uncomplicated J32.9 Chronic sinusitis, unspecified D84.9 Immunodeficiency, unspecified Z23 Encounter for immunization Office Visit 06/16/2017 10:40a [facility] Chetan Camejo J30.89 Other allergic Crissy Fraser rhinitis J45.40 Moderate persistent asthma, uncomplicated J32.9 Chronic sinusitis, unspecified J47.0 Bronchiectasis with acute lower respiratory infection Z23 Encounter for immunization Office Visit 06/08/2017 11:20a [facility] Mireya Z23 Encounter for Uldrich, WINE CONSULTANT-C immunization J45.40 Moderate persistent asthma, uncomplicated J30.89 Other allergic rhinitis Office Visit 06/01/2017 1:40p [facility] Barbara Langley Z23 Encounter for WINE CONSULTANT-C immunization J47.9 Bronchiectasis, uncomplicated J01.90 Acute sinusitis, unspecified J45.40 Moderate persistent asthma, uncomplicated Office Visit 05/20/2017 4:20p [facility] Chetan Camejo J45.40 Moderate persistent Office Crissy Fraser asthma, uncomplicated J47.9 Bronchiectasis, uncomplicated Z23 Encounter for immunization Office Visit 03/31/2017 11:40a [facility] Chetan Camejo J30.89 Other allergic Crissy Fraser rhinitis J45.40 Moderate persistent asthma, uncomplicated J47.9 Bronchiectasis, uncomplicated Z23 Encounter for immunization Office Visit 03/10/2017 2:40p [facility] Mireya Z23 Encounter for Uldrich, WINE CONSULTANT-C immunization J30.89 Other allergic rhinitis J32.9 Chronic sinusitis, unspecified J45.40 Moderate persistent asthma, uncomplicated J47.9 Bronchiectasis, uncomplicated Office Visit 01/27/2017 11:40a [facility] Chetan Camejo J30.89 Other allergic Crissy Fraser rhinitis J47.9 Bronchiectasis, uncomplicated J32.9 Chronic sinusitis, unspecified Z23 Encounter for immunization Office Visit 12/16/2016 2:20p [facility] Chetan Camejo J30.89 Other allergic Crissy Fraser rhinitis J32.9 Chronic sinusitis, unspecified J47.9 Bronchiectasis, uncomplicated J45.40 Moderate persistent asthma, uncomplicated Z23 Encounter for immunization Office Visit 12/11/2016 2:00p [place] Mireya Uleleanor, D84.9 Immunodeficiency, WINE CONSULTANT-C unspecified J30.89 Other allergic rhinitis J45.40 Moderate persistent asthma, uncomplicated J47.9 Bronchiectasis, uncomplicated Z23 Encounter for immunization Office Visit 10/21/2016 [facility] Chetan Nguyễn47.9 Bronchiectasis, 11:20a Office Crissy Fraser uncomplicated J45.40 Moderate persistent asthma, uncomplicated D84.9 Immunodeficiency, unspecified J30.89 Other allergic rhinitis Z23 Encounter for immunization Z68.42 Body mass index (BMI) 45.0-49.9, adult Office Visit 09/24/2016 8:40[place] Acute sinusrobin MRonnie unspecified J45.40 Moderate persistent asthma, uncomplicated D84.9 Immunodeficiency, unspecified J01.90 Acute sinusitis, unspecified J30.89 Other allergic rhinitis J30.89 Other allergic rhinitis D84.9 Immunodeficiency, unspecified Z23 Encounter for immunization Z68.42 Body mass index (BMI) 45.0-49.9, adult Office Visit 08/26/2016 11:40a [facility] Chetan Nguyễn01.Ngozi Acute sinusitis, Crissy Fraser unspecified J30.89 Other allergic rhinitis J45.40 Moderate persistent asthma, uncomplicated J47.9 Bronchiectasis, uncomplicated Z23 Encounter for immunization Z68.42 Body mass index (BMI) 45.0-49.9, adult Office Visit 08/19/2016 11:20a [facility] Chetan Nguyễn01.Ngozi Acute sinusitis, Crissy Fraser unspecified J30.89 Other allergic rhinitis Z68.42 Body mass index (BMI) 45.0-49.9, adult Z23 Encounter for immunization Office Visit 07/09/2016 11:40a [place] Gopi Akins30.Christel Other allergic MBartDBart rhinitis J45.40 Moderate persistent asthma, uncomplicated J47.9 Bronchiectasis, uncomplicated Z68.42 Body mass index (BMI) 45.0-49.9, adult Office Visit 05/07/2016 3:40p Trini Camejo J45.40 Moderate persistent Fraser, M.D. asthma, uncomplicated J30.89 Other allergic rhinitis J47.9 Bronchiectasis, uncomplicated Z68.41 Body mass index (BMI) 40.0-44.9, adult Office Visit 02/20/2016 3:00p [facility] Catracho Maria J30.1 Allergic rhinitis M.D. due to pollen J45.30 Mild persistent asthma, uncomplicated Z23 Encounter for immunization Z68.43 Body mass index (BMI) 50-59.9 , adult Office Visit 12/12/2015 11:20a [facility] Catracho Maria J30.1 Allergic rhinitis M.D. due to pollen J45.30 Mild persistent asthma, uncomplicated J32.8 Other chronic sinusitis Z23 Encounter for immunization Z68.41 Body mass index (BMI) 40.0-44.9, adult Office Visit 08/15/2015 3:20p [facility] Catracho Maria J45.40 Moderate persistent M.D. asthma, uncomplicated Z68.36 Body mass index (BMI) 36.0-36.9, adult Z23 Encounter for immunization J45.40 Moderate persistent asthma, uncomplicated J30.1 Allergic rhinitis due to pollen Office Visit 06/13/2015 11:20a [facility] Catracho Maria Z68.39 Body mass index M.D. (BMI) 39.0-39.9, adult Z23 Encounter for immunization J32.8 Other chronic sinusitis J45.30 Mild persistent asthma, uncomplicated Office Visit 12/13/2014 8:40a [facility] Catracho Maria M.D. 786.2 Cough 493.00 Asthma Extrinsic Unspecified 473.8 Sinusitis Chronic Other V85.38 Body Mass Index 38.0-38.9 Adult V04.81 Need For Prophylactic Vaccination & Inoculation/Influenza 380.22 Otitis Externa Other Acute Office Visit 07/26/2014 11:00a [facility] Catracho Maria M.D. 786.2 Cough 493.00 Asthma Extrinsic Unspecified 748.61 Bronchiectasis Congenital 473.8 Sinusitis Chronic Other Office Visit 12/28/2013 11:40a [facility] Catracho Maria M.D. 786.2 Cough 748.61 Bronchiectasis Congenital 477.8 Rhinitis Allergic Due To Other Allergen Office Visit 09/19/2013 11:00a [facility] Chetan Camejo 493.00 Asthma Extrinsic Crissy Fraser Unspecified 110.5 Dermatophytosis Body 461.0 Sinusitis Acute Maxillary 564.00 Constipation Unspecified Office Visit 06/29/2013 3:00p [facility] Samantha 493.00 Asthma Extrinsic Lisa, WINE CONSULTANT-BC Unspecified 477.8 Rhinitis Allergic Due To Other Allergen 477.0 Rhinitis Allergic Due To Pollen 473.9 Sinusitis Chronic Unspec Office Visit 06/15/2013 3:20p [facility] Catracho Maria 493.00 Asthma Extrinsic M.D. Unspecified 477.8 Rhinitis Allergic Due To Other Allergen 473.9 Sinusitis Chronic Unspec Office Visit 06/06/2013 11:00a [facility] Samantha 493.00 Asthma Extrinsic Lisa, WINE CONSULTANT-BC Unspecified 477.8 Rhinitis Allergic Due To Other Allergen 477.0 Rhinitis Allergic Due To Pollen Office Visit 05/11/2013 10:00a [facility] Samantha 493.00 Asthma Extrinsic Lisa, WINE CONSULTANT-BC Unspecified 477.8 Rhinitis Allergic Due To Other Allergen 477.0 Rhinitis Allergic Due To Pollen Office Visit 04/27/2013 1:40p [facility] Samantha 493.00 Asthma Extrinsic Lisa, WINE CONSULTANT-BC Unspecified 477.8 Rhinitis Allergic Due To Other Allergen 477.0 Rhinitis Allergic Due To Pollen Office Visit 03/30/2013 10:20a [facility] Samantha 493.00 Asthma Extrinsic Lisa, WINE CONSULTANT-BC Unspecified 477.8 Rhinitis Allergic Due To Other Allergen 477.0 Rhinitis Allergic Due To Pollen Office Visit 02/02/2013 11:00a [facility] Catracho Maria M.D. 786.2 Cough 477.8 Rhinitis Allergic Due To Other Allergen 493.00 Asthma Extrinsic Unspecified Office Visit 01/12/2013 11:00a [facility] Catracho Maria M.D. 786.2 Cough 477.8 Rhinitis Allergic Due To Other Allergen Office Visit 12/01/2012 4:00p [facility] Joy Abbott 493.00 Asthma Extrinsic Katiuska, WINE CONSULTANT-C Unspecified 477.0 Rhinitis Allergic Due To Pollen 477.8 Rhinitis Allergic Due To Other Allergen Office Visit 11/03/2012 4:20p [facility] Catracho Khan, 493.00 Asthma Extrinsic M.D. Unspecified Office Visit 09/15/2012 9:40a [facility] Joy L. 493.00 Asthma Extrinsic Katiuska, Unspecified WINE CONSULTANT-C 473.9 Sinusitis Chronic Unspec Office Visit 08/11/2012 11:20a [facility] Catracho Khan, 493.00 Asthma Extrinsic M.D. Unspecified Office Visit 08/04/2012 8:40a [facility] Catracho Khan, 461.9 Sinusitis Acute M.D. Unspec Office Visit 06/09/2012 3:20p [facility] Catracho Maria, 493.90 Asthma Unspec W/O M.D. Status Asthmaticus 473.9 Sinusitis Chronic Unspec Office Visit 05/31/2012 9:20a [facility] Joy L. 465.8 Upper Respiratory Katiuska, WINE CONSULTANT-C Infections Acute Other Multiple Sites 493.00 Asthma Extrinsic Unspecified Office Visit 04/28/2012 8:30a [facility] Catracho Maria, 477.0 Rhinitis Allergic M.D. Due To Pollen 493.00 Asthma Extrinsic Unspecified Office Visit 03/31/2012 2:00p [facility] Joy L. 493.00 Asthma Extrinsic Katiuska, WINE CONSULTANT-C Unspecified 708.1 Urticaria Idiopathic 477.0 Rhinitis Allergic Due To Pollen Office Visit 02/11/2012 8:40a [facility] Catracho Maria, 786.2 Cough M.D. Office Visit 01/28/2012 11:00a [facility] Catracho Maria, 461.9 Sinusitis Acute M.D. Unspec Office Visit 01/14/2012 3:40p [facility] Catracho Maria, 786.2 Cough M.D. 493.90 Asthma Unspec W/O Status Asthmaticus 477.0 Rhinitis Allergic Due To Pollen 477.8 Rhinitis Allergic Due To Other Allergen Office Visit 05/28/2011 11:40a [facility] Alize NguyễnDBart 786.2 Cough 493.90 Asthma Unspec W/O Status Asthmaticus 477.0 Rhinitis Allergic Due To Pollen 477.8 Rhinitis Allergic Due To Other Allergen Office Visit 03/05/2011 8:40a [facility] Bernabe Aviles M.D. 786.2 Cough 493.90 Asthma Unspec W/O Status Asthmaticus 477.0 Rhinitis Allergic Due To Pollen 477.8 Rhinitis Allergic Due To Other Allergen Office Visit 01/29/2011 11:00a [facility] Catracho Maria M.D. 786.2 Cough 493.90 Asthma Unspec W/O Status Asthmaticus 477.0 Rhinitis Allergic Due To Pollen 477.8 Rhinitis Allergic Due To Other Allergen Office Visit 01/06/2011 2:20p [facility] Nikki Crandall M.D. 786.2 Cough 493.90 Asthma Unspec W/O Status Asthmaticus 477.0 Rhinitis Allergic Due To Pollen 477.8 Rhinitis Allergic Due To Other Allergen Plan of Treatment Future Appointment(s):10/19/2018 3:20 pm - Chetan Fraser M.D. at [facility]
[2018-09-04 11:43] VITALS: BP 124/97
--- NOTE | 2018-09-04 12:20 | UC ---
General HPI - HPI Summary HPI Summary: pt c/o some swelling and soreness to her R upper eye lid x 4 days. noted a line of bumps in the lid, a couple looked like pimples. also notes sinus congestion and ears feel plugged. she is already on clindamycin 300mg tid for an immune deficiency. no visual change, pain to the eye or redness/discharge. - History of Current Complaint Chief Complaint: UCEye Stated Complaint: RT EYE SWELLING Time Seen by Provider: 09/04/18 12:09 Hx Obtained From: Patient Hx Last Menstrual Period: none Onset/Duration: Gradual Onset Timing: Constant Pain Intensity: 6 Associated Signs & Symptoms: Negative: Fever, Headache - Allergy/Home Medications Allergies/Adverse Reactions: Allergies Allergy/AdvReac Type Severity Reaction Status Date / Time aspirin Allergy Tachycardia Verified 09/04/18 11:45 chocolate flavor Allergy Hives Verified 09/04/18 11:45 fluticasone Allergy Difficulty Verified 09/04/18 11:45 [From Advair Diskus] Breathing Latex, Natural Rubber Allergy Difficulty Verified 09/04/18 11:45 Breathing levofloxacin [From Levaquin] Allergy Headache Verified 09/04/18 11:45 loratadine Allergy Dizziness Verified 09/04/18 11:45 metoclopramide [From Reglan] Allergy Dizziness Verified 09/04/18 11:45 polyethylene glycol 3350 Allergy GI Upset Verified 09/04/18 11:45 [From Miralax] pseudoephedrine Allergy Tachycardia Verified 09/04/18 11:45 [From Sudafed] salmeterol Allergy Difficulty Verified 09/04/18 11:45 [From Advair Diskus] Breathing famotidine [From Pepcid] AdvReac Vomiting Verified 09/04/18 11:45 DAIRY AdvReac FLARES UP Uncoded 09/04/18 11:45 ASTHMA SPICES AdvReac RASH, N/V Uncoded 09/04/18 11:45 Home Medications: Home Medications Albuterol HFA INHALER* [Ventolin HFA Inhaler*] 1 - 2 puff INH Q4H PRN 09/04/18 [ History Confirmed 09/04/18] Clindamycin Cap(NF) [Clindamycin Cap 300 mg Cap(NF)] 300 mg PO TID 09/04/18 [ History Confirmed 09/04/18] Lisinopril TAB* [Prinivil TAB*] 5 mg PO DAILY 09/04/18 [History Confirmed ] PMH/Surg Hx/FS Hx/Imm Hx - Additional Past Medical History Additional PMH: immune deficiency Respiratory History: Asthma GI/ History: Gastroesophageal Reflux - Surgical History Surgical History: Yes Surgery Procedure, Year, and Place: 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 Gastric Bypass surgery 2016. Left breast bx and proceedure. Other Surgical History: pt is scheduled to have gastric bypass in the next month - Family History Known Family History: Positive: Cardiac Disease, Hypertension, Diabetes, Respiratory Disease, Other - Denies any FMH of bleeding disorders - Social History Alcohol Use: None Substance Use Type: None Smoking Status (MU): Never Smoked Tobacco Have You Smoked in the Last Year: No When Did the Patient Quit Smoking/Using Tobacco: 1999 - Immunization History Most Recent Influenza Vaccination: none Most Recent Tetanus Shot: 02/2012 Vaccination Up to Date: Yes Review of Systems All Other Systems Reviewed And Are Negative: Yes Constitutional: Negative: Fever Skin: Positive: Rash Eyes: Negative: Blurred Vision, Diplopia, Drainage, Eye Redness, Photophobia Neurological: Negative: Headache Physical Exam Triage Information Reviewed: Yes Appearance: Well-Appearing Vital Signs: Initial Vital Signs Temp 97.6 F 09/04/18 11:32 Pulse 85 09/04/18 11:32 Resp 20 09/04/18 11:32 BP 124/97 09/04/18 11:32 Pulse Ox 99 09/04/18 11:32 Vital Signs Reviewed: Yes Eyes: Positive: Other: - R upper lid: Slight central swelling. There is a liner area of slight erythema in the crease of the lid when pt closes the eye. It looks c/w some tiny excoriated vesicles. No additonal periorbital swelling. L lids unremarkable. No auricular adenopathy. PERRL, EOMI, Conjunctiva are clear. AC's clear. No additional facial rash/lesions. ENT: Positive: Pharynx normal, TMs normal. Negative: Nasal congestion, Nasal drainage, Sinus tenderness Neck: Positive: Supple, Nontender, No Lymphadenopathy Respiratory: Positive: Lungs clear, Normal breath sounds Cardiovascular: Positive: RRR, No Murmur Abdomen Description: Positive: Nontender Musculoskeletal: Positive: ROM Intact Neurological: Positive: Alert Psychological: Positive: Age Appropriate Behavior Skin Exam: Normal Course/Dx - Differential Dx - Multi-Symptom Differential Diagnoses: Other - pt is on a broad spectrum antibiotic routinely that shoulder cover MRSA/skin bacteria. No concern for shingles but the rash does look viral and the globe is not involved. no concern for periorbital or orbital cellulitis. will tx with a po antiviral. will add bactroban because pt did report seeing pimple type spot. she was advised to avoid the eye with the Bactron bad which she acknowledged. no concern for ear infection or bacterial sinusitis. - Diagnoses Provider Diagnosis: Viral rash Discharge - Sign-Out/Discharge Documenting (check all that apply): Patient Departure All imaging exams completed and their final reports reviewed: No Studies - Discharge Plan Condition: Stable Disposition: HOME Prescriptions: Famciclovir 250 mg PO TID #21 tablet Mupirocin 2% OINT* [Bactroban 2 % Oint*] 1 applic TOPICAL BID 7 Days #1 tube Patient Education Materials: Viral Exanthem (ED) Referrals: Hunter Johnson MD [Primary Care Provider] - 5 Days - Billing Disposition and Condition Condition: STABLE Disposition: Home - Attestation Statements Provider Attestation: Per institutional requirements, I have reviewed the chart, however, I was not consulted specifically or made aware of this patient by the midlevel provider. I did not personally evaluate, interact with , or disposition this patient.
== END 2018-09-04 12:31 | disposition home or self-care (01) ==
LOC: UCCORT 09:20
DX: R21 Rash and other nonspecific skin eruption (principal); H02.841 Edema of right upper eyelid; J45.909 Unspecified asthma, uncomplicated; K21.9 Gastro-esophageal reflux disease without esophagitis; Z88.8 Allergy status to other drugs, medicaments and biological substances; Z88.6 Allergy status to analgesic agent; Z88.1 Allergy status to other antibiotic agents; Z91.040 Latex allergy status; Z91.011 Allergy to milk products
CPT/HCPCS: 99212; G0463

== ENCOUNTER 2019-04-05 12:57 | Emergency (ER) | payer MEDICAID, MEDICARE, OTHER ==
[2019-04-05 13:37] VITALS: BP 148/62
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
== END 2019-04-05 16:08 | disposition home or self-care (01) ==
LOC: UCEAST 12:57
DX: S16.1XXA Strain of muscle, fascia and tendon at neck level, initial encounter (principal); J45.909 Unspecified asthma, uncomplicated; Z88.6 Allergy status to analgesic agent; Z88.8 Allergy status to other drugs, medicaments and biological substances; Z91.02 Food additives allergy status; Z91.040 Latex allergy status; Z88.1 Allergy status to other antibiotic agents; Z91.011 Allergy to milk products; Z91.018 Allergy to other foods; V49.9XXA Car occupant (driver) (passenger) injured in unspecified traffic accident, initial encounter; Y92.9 Unspecified place or not applicable
CPT/HCPCS: 72050; 99213; G0463